=== PATIENT | male | born 1965 | race Caucasian/White ===

== ENCOUNTER → 2018-08-22 10:23 | Outpatient (CLI) | payer OTHER, SELFPAY ==
--- NOTE | 2018-08-22 10:30 | MRI_ITS ---
STUDY: MRI BRAIN WITH AND WITHOUT CONTRAST REASON FOR EXAM: Male, 53 years old. Epilepsy and bilateral tinnitus TECHNIQUE: Standardized multiplanar fat and water weighted pulse sequences were obtained. 10 ml of Gadavist contrast material was administered intravenously for the contrast portion of the examination. COMPARISON: 08/14/2015 FINDINGS: Normal size of the ventricles and extra-axial spaces for the patient's age. The previously described asymmetry involving the right versus the left uncus (with the left being slightly more prominent than the right) is unchanged. No parenchymal signal abnormalities are seen to suggest mesial temporal sclerosis or underlying mass lesion. Normal bilateral basal ganglia. Normal thalami. There is no extra-axial fluid accumulation. Normal flow voids within the major intracranial circulation suggesting patency by spin echo criteria. Normal venous enhancement. There is no enhancing intra-axial or extra-axial abnormality. Normal sella turcica, pituitary gland, infundibular stalk, optic chiasm and hypothalamus. Normal tectal plate and pineal gland. Normal midbrain, wu and medulla. Normal cerebellum. Normal basal cisterns. Normal bilateral temporal bones. Normal bilateral internal auditory canals. No demonstrated orbital abnormality, within the constraints of a routine brain study. Normal visualized paranasal sinuses. Normal calvarium and skull base. Normal visualized soft tissue structures. Degenerative cervical spine changes. MRI/Brain W/WO Contrast IMPRESSION: The previously described uncal asymmetry is unchanged. No new brain lesions are seen. Electronically Signed: Quintin Fowler MD at 14:12 EST Tel , Service support ,
== END ==
PROVIDERS: Family Provider Family Medicine; PCP Family Medicine; Referring Provider Family Medicine; Visit Provider Family Medicine
DX: G40.109 Localization-related (focal) (partial) symptomatic epilepsy and epileptic syndromes with simple partial seizures, not intractable, without status epilepticus (principal)
CPT/HCPCS: 70553; A9585

== ENCOUNTER → 2018-10-26 15:55 | Outpatient (CLI) | payer OTHER, SELFPAY ==
--- NOTE | 2018-10-26 16:00 | CT_ITS ---
STUDY: CT CERVICAL SPINE WITHOUT CONTRAST REASON FOR EXAM: Male, 53 years old. Neck pain, numbness RADIATION DOSAGE (If Supplied By Facility): CTDIvol = ( 44.02 ) mGy, DLP = ( 3001.90 ) mGycm TECHNIQUE: Thin slice helical CT acquisition of the cervical spine without contrast. Coronal and sagittal 2-D multiplanar reformatted images were saved to the PACS archive. Individualized dose optimization techniques were used for this CT. COMPARISON: Thoracic spine CT same date. FINDINGS: Cranial osseous structures and sinuses within the field of view exhibit no acute process. The apical lungs are clear. Apical thoracic cage intact. Supraclavicular soft tissues including the thyroid appear normal. Cervical soft tissues in limited evaluation exhibit no acute process. There are mild atherosclerotic calcifications of the carotid bulbs bilaterally. Prevertebral soft tissues normal. There is no spinal canal stenosis. Odontoid and lateral masses are intact and aligned without degeneration. 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 The facet joints are normally aligned and intact with mild low cervical facet arthropathy. Posterior limits acutely intact. Vertebral body height and alignment are normal. There is slight reversal of the expected cervical lordosis. Degenerative levels as follows: C3-C4 preserved disc height, mild uncovertebral joint hypertrophy, minimal foraminal narrowing, minimal central posterior disc protrusion not contributing to stenosis. C4-C5 mild disc narrowing, minimal right and mild left uncovertebral joint hypertrophy contributing to minimal right and mild left foraminal narrowing. C6-C7 minimal disc narrowing, no stenosis. Mild right facet hypertrophy. C7-T1 minimal disc narrowing, minimal uncovertebral joint hypertrophy, no stenosis. CT/Spine Cervical without Contras IMPRESSION: Minimal spondylosis. Minimal or mild foraminal narrowing is present at several levels, very limited risk of nerve root impingement. Electronically Signed: Arnulfo Alcazar MD at 19:16 EST Tel , Service support ,
--- NOTE | 2018-10-26 16:01 | CT_ITS ---
STUDY: CT THORACIC SPINE WITHOUT CONTRAST REASON FOR EXAM: Male, 53 years old. Neck pain and numbness. RADIATION DOSAGE (If Supplied By Facility): CTDIvol = ( 44.02 ) mGy, DLP = ( 3001.90 ) mGycm TECHNIQUE: The patient was scanned in a multi detector CT scanner. High resolution imaging was performed. Imagessagittal and coronal images were reconstructed. Individualized dose optimization techniques were used for this CT. COMPARISON: CT cervical spine same date. Lumbosacral spine radiograph 08/21/2015 FINDINGS: Paraspinous musculature appears normal. Evaluated portions of the retroperitoneum and mediastinum exhibit no acute process. No acute pulmonary process is evident within the [id number]. Posterior medial ribs are intact. Minimal degenerative features of several costochondral joints, most prominently on the right at T8-T10 . Mild thoracic scoliosis. Mild upper thoracic spondylosis. Very minimal disc degenerative features at several levels. The facet joints appear normally aligned and intact. Posterior elements acutely intact. There is no evidence of spinal canal stenosis. There is no evidence of foraminal stenosis. There are no apparent posterior disc bulges. CT/Spine Thoracic without Contras IMPRESSION: Minimal thoracic spondylosis. Mild kyphoscoliosis. No apparent stenosis. Electronically Signed: Arnulfo Alcazar MD at 18:19 EST Tel , Service support ,
== END ==
PROVIDERS: Family Provider Family Medicine; PCP Family Medicine; Referring Provider Nurse Practitioner Acute Care; Visit Provider Nurse Practitioner Acute Care
DX: R20.0 Anesthesia of skin (principal); R20.2 Paresthesia of skin
CPT/HCPCS: 72125; 72128

== ENCOUNTER → 2018-12-22 16:03 | Outpatient (CLI) | payer OTHER, SELFPAY ==
[2018-12-22 16:58] LABS: Hematocrit 39.2 % (40-54); Hemoglobin 13.5 g/dl (13.0-16.5); Mean Corp Hgb Conc 34.4 g/gl (32-36); Mean Corpuscular Hgb 32.1 pg (27.0-32.0); Mean Corpuscular Volume 93.3 fL (80-94); Mean Platelet Vol. 10.1 fl (6.2-12.0); Platelet Count 204 K/mm3 (150-450); RBC Distribution Width CV 11.7 % (11.6-14.6); RBC Distribution Width SD 38.9 fl (35.1-43.9); White Blood Count 4.6 K/mm3 (4.4-11.0)
[2018-12-22 17:12] LABS: Vitamin B12 1264 pg/mL (211-911)
[2018-12-22 17:53] LABS: Erythrocyte Sedimentation Rate 4 mm/hr (0-20)
[2018-12-22 17:54] LABS: ALB/GLOB Ratio 1.3 RATIO (0.9-2.4); AST(SGOT) 18 U/L (15-37); Alanine Aminotransfer ALT/SGPT 32 U/L (16-61); Alkaline Phosphatase 60 U/L (45-117); Anion Gap 6 (5-15); BUN 16 mg/dL (7-18); BUN/Creat Ratio 17.9 RATIO (10-20); CRP < 2.90 mg/L (0.0-3.0); Calcium,Total 8.5 mg/dL (8.5-10.1); Chloride 103 mmol/L (98-107); Creatinine, Serum 0.89 mg/dL (0.70-1.30); EST Glomerular Filtration Rate 95 mL/min (>60); Est Glom Filt Rate - Afr Amer 115 mL/min (>60); Globulin 3.1 g/dL (2.2-4.2); Glucose 86 mg/dL (74-106); Potassium 3.8 mmol/L (3.5-5.1); Protein, Total 7.1 g/dL (6.4-8.2); Sodium Level 137 mmol/L (136-145)
[2018-12-22 18:04] LABS: Scan Indicated on CBC? Y/N NO
[2018-12-26 08:48] LABS: Trileptal-Oxcarbazepine 6 ug/mL (10-35)
== END ==
PROVIDERS: Family Provider Family Medicine; PCP Family Medicine; Referring Provider Psychiatry & Neurology Neurology; Visit Provider Psychiatry & Neurology Neurology
DX: G40.909 Epilepsy, unspecified, not intractable, without status epilepticus (principal)
CPT/HCPCS: 36415; 80053; 82542; 82607; 85027; 85652; 86140

== ENCOUNTER → 2019-04-17 07:15 | Outpatient (CLI) | payer OTHER, SELFPAY ==
[2019-04-17 10:24] LABS: PSA,Total - Annual Screen 1.04 ng/mL (0.00-4.00)
== END ==
PROVIDERS: Family Provider Family Medicine; PCP Family Medicine; Referring Provider Family Medicine; Visit Provider Family Medicine
DX: Z12.5 Encounter for screening for malignant neoplasm of prostate (principal)
CPT/HCPCS: 36415; 84153; G0103

== ENCOUNTER → 2019-09-25 12:25 | Outpatient (CLI) | payer OTHER, SELFPAY ==
--- NOTE | 2019-09-25 12:29 | RAD_ITS ---
STUDY: X-RAY CHEST REASON FOR EXAM: Male, 54 years old. Bronchitis TECHNIQUE: Frontal and lateral views COMPARISON: None. FINDINGS: The lungs are clear and expanded. There is no demonstrated pleural abnormality. Normal size heart. Normal mediastinum and katya. Normal visualized pulmonary arteries. Normal visualized aortic arch and descending thoracic aorta. Normal visualized thoracic spine. Normal visualized ribs, clavicles, and shoulders. There is no demonstrated abnormality of the visualized soft tissue structures of the upper abdomen. RAD/Chest PA and Lateral IMPRESSION: Normal x-ray examination of the chest. Electronically Signed: Socrates Hayden DO at 21:48 EST Tel [phone], Service support ,
== END ==
PROVIDERS: Family Provider Family Medicine; PCP Family Medicine; Referring Provider Family Medicine; Visit Provider Family Medicine
DX: J42 Unspecified chronic bronchitis (principal)
CPT/HCPCS: 71046

== ENCOUNTER → 2019-11-20 08:17 | Outpatient (CLI) | payer OTHER, SELFPAY ==
[2019-11-20 10:35] LABS: Absolute Lymphocyte Count 0.99 X10^3/uL (0.83-4.51); Absolute Neutrophil Count 2.5 X10^3/uL (2.0-7.7); Basophil# 0.03 X10^3/uL; Basophil% 0.8 % (0-1); Eosinophil# 0.15 X10^3/uL; Eosinophils% 3.8 % (0-5); Hematocrit 39.6 % (40-54); Hemoglobin 13.6 g/dL (13.0-16.5); Lymphocyte # 0.99 X10^3/ul (4.0); Lymphocyte % 24.8 % (19-41); Mean Corp Hgb Conc 34.3 g/dL (32-36); Mean Corpuscular Hgb 31.9 pg (27.0-32.0); Mean Platelet Vol. 10.6 fl (6.2-12.0); Monocyte# 0.35 X10^3/uL; Monocyte% 8.8 % (0-10); NRBC Flagged by Analyzer 0 % (0-5); Neutrophil # 2.47 X10^3/uL (2.7-7.7); Neutrophil % 61.5 % (47-70); Platelet Count 178 K/mm3 (150-450); RBC Distribution Width CV 11.7 % (11.6-14.6); RBC Distribution Width SD 39.8 fl (35.1-43.9); Red Blood Count 4.26 M/mm3 (4.6-6.2)
[2019-11-20 10:58] LABS: Microalbumin,Random Urine 14.6 mg/L (NO RANGE EST.); Microalbumin:Creatinine Ratio 5.6 mg/g CRE (<30 mg/g CRE)
[2019-11-20 11:32] LABS: ALB/GLOB Ratio 1.2 RATIO (0.9-2.4); AST(SGOT) 16 U/L (15-37); Alanine Aminotransfer ALT/SGPT 32 U/L (16-61); Albumin, Serum 3.6 g/dL (3.2-5.0); Alkaline Phosphatase 58 U/L (45-117); Anion Gap 5 (5-15); BUN 20 mg/dL (7-18); BUN/Creat Ratio 16.7 RATIO (10-20); CRP < 2.90 mg/L (0.0-3.0); Calcium,Total 8.9 mg/dL (8.5-10.1); Chloride 107 mmol/L (98-107); EST Glomerular Filtration Rate 67 mL/min (>60); Est Glom Filt Rate - Afr Amer 81 mL/min (>60); Globulin 3.1 g/dL (2.2-4.2); Glucose 103 mg/dL (74-106); Potassium 3.9 mmol/L (3.5-5.1); Protein, Total 6.7 g/dL (6.4-8.2); Sodium Level 138 mmol/L (136-145); Thyroid Stim Hormone (TSH) 1.76 uIU/mL (0.358-3.74)
[2019-11-22 12:08] LABS: PROEL- A/G Ratio 1.4 (0.7-1.7); PROEL- Albumin 3.7 g/dL (2.9-4.4); PROEL- Alpha-1 Globulin 0.2 g/dL (0.0-0.4); PROEL- Alpha-2 Globulin 0.8 g/dL (0.4-1.0); PROEL- Gamma Globulin 0.6 g/dL (0.4-1.8); PROEL- Globulin, Total 2.6 g/dL (2.2-3.9); PROEL- TOTAL PROTEIN 6.3 g/dL (6.0-8.5); PROELU- Alpha-1-Globulin,Ur 1.1 % (.); PROELU- Alpha-2-Globulin,Ur 18.7 % (.); PROELU- Beta Globulin, Ur 28.3 % (.); Total Protein, Ur 9.1 mg/dL (Not Estab.)
[2019-11-22 13:48] LABS: ANTINUCLEAR ANTIBODIES DIRECT Negative (Negative)
== END ==
PROVIDERS: PCP Family Medicine; Referring Provider Family Medicine; Visit Provider Family Medicine
DX: G62.9 Polyneuropathy, unspecified (principal)
CPT/HCPCS: 36415; 80053; 82043; 82570; 84165; 84166; 84443; 85025; 86038; 86140

== ENCOUNTER → 2019-12-06 15:45 | Outpatient (CLI) | payer OTHER, SELFPAY ==
[2019-12-09 10:15] LABS: Lamotrigine (Lamictal) Level 4.1 ug/mL (2.0-20.0)
== END ==
PROVIDERS: PCP Family Medicine; Referring Provider Psychiatry & Neurology Neurology; Visit Provider Psychiatry & Neurology Neurology
DX: R56.9 Unspecified convulsions (principal)
CPT/HCPCS: 36415; 82542

== ENCOUNTER → 2019-12-12 16:06 | Outpatient (CLI) | payer OTHER, SELFPAY ==
--- NOTE | 2019-12-12 16:15 | RAD_ITS ---
STUDY: X-RAY - LUMBOSACRAL SPINE REASON FOR EXAM: Male, 54 years old. low back pain, patient also has pain that runs down both legs TECHNIQUE: 7 view(s) of the lumbosacral spine were obtained. COMPARISON: 11 for 15 FINDINGS: Normal lumbar lordosis. There is no substantial scoliosis. There is normal alignment of the vertebrae. No subluxation on the flexion or extension views to suggest instability. There is multilevel endplate spondylosis of the lumbar vertebrae. There is multi-level degenerative disc disease with multi-level disc space narrowing. Normal bilateral sacral ala, sacroiliac joints, and visualized sacrum. Normal visualized soft tissue structures. RAD/L/S Spine Comp/w Bending Views IMPRESSION: Mild degenerative disc disease lower lumbar spine but no instability. Electronically Signed: Arnulfo Hurtado MD at 9:08 EST Tel , Service support ,
== END ==
PROVIDERS: PCP Family Medicine; Referring Provider Psychiatry & Neurology Neurology; Visit Provider Psychiatry & Neurology Neurology
DX: M54.16 Radiculopathy, lumbar region (principal)
CPT/HCPCS: 72114

== ENCOUNTER → 2020-06-03 14:28 | Outpatient (CLI) | payer OTHER, SELFPAY ==
--- NOTE | 2020-06-03 14:31 | RAD_ITS ---
STUDY: X-RAY - LEFT SHOULDER REASON FOR EXAM: Male, 55 years old. left side neck pain and into the left shoulder for several months TECHNIQUE: 2 view(s) of the shoulder. COMPARISON: None. FINDINGS: There is moderate degenerative arthrosis of the glenohumeral articulation. There is a chronic type III separation of the acromioclavicular joint. Normal acromion. Normal humeral head and visualized proximal humerus. The soft tissue structures are unremarkable. Normal visualized pulmonary apex. 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
--- NOTE | 2020-06-03 14:31 | RAD_ITS ---
STUDY: X-RAY - CERVICAL SPINE REASON FOR EXAM: Male, 55 years old. Neck pain along left side and into left shoulder TECHNIQUE: 4 view(s) of the cervical spine were obtained. COMPARISON: None FINDINGS: Normal anterior atlantoaxial articulation. Normal odontoid process. Normal cervical lordosis. Normal vertebral bodies and endplates. Normal disc space heights. Normal visualized intervertebral neuroforamina. The soft tissue structures are unremarkable. RAD/Cerv Spine 2 or 3 Views IMPRESSION: Normal x-ray examination of the visualized cervical spine. Electronically Signed: Carlos Akers MD at 15:52 EDT , Service support ,
== END ==
PROVIDERS: PCP Family Medicine; Referring Provider Family Medicine; Visit Provider Family Medicine
DX: M54.2 Cervicalgia (principal); G54.0 Brachial plexus disorders
CPT/HCPCS: 72040; 73030

== ENCOUNTER → 2020-11-21 13:30 | Outpatient (CLI) | payer OTHER, SELFPAY | PROVIDERS: PCP Family Medicine; Referring Provider Family Medicine; Visit Provider Family Medicine | DX: Z20.828 Contact with and (suspected) exposure to other viral communicable diseases (principal) | CPT/HCPCS: 87635; U0005; U0003 ==

== ENCOUNTER → 2020-12-09 10:46 | Outpatient (CLI) | payer OTHER, SELFPAY ==
[2020-12-09 12:04] LABS: PSA,Total - Annual Screen 1.52 ng/mL (0.00-4.00)
== END ==
PROVIDERS: PCP Family Medicine; Referring Provider Urology; Visit Provider Urology
DX: Z12.5 Encounter for screening for malignant neoplasm of prostate (principal)
CPT/HCPCS: 36415; 84153; G0103

== ENCOUNTER → 2021-04-03 07:52 | Outpatient (CLI) | payer OTHER, SELFPAY ==
--- NOTE | 2021-04-03 08:01 | MRI_ITS ---
STUDY: MRI CERVICAL SPINE WITHOUT CONTRAST REASON FOR EXAM: Male, 56 years old. Paresthesia of skin. TECHNIQUE: Standardized fat and water weighted pulse sequences were obtained in the sagittal and axial planes. COMPARISON: CT cervical spine without contrast 10/26/2018. FINDINGS: Normal foramen magnum and brainstem-cervical cord junction. Normal craniovertebral junction. Normal anterior atlantoaxial articulation. Normal odontoid process. Mild upper cervical spine kyphosis. Normal vertebral bodies and posterior osseous elements. C2-3: Normal endplates. Normal disc height, signal and morphology. Normal central canal and intervertebral neural foramina. C3-4: Normal endplates. Normal disc height, signal and morphology. Normal central canal and intervertebral neural foramina. C4-5: Normal endplates. Normal disc height and morphology. Normal central canal and right intervertebral neural foramen. Moderate stenosis of the left intervertebral neural foramen due to osteophyte arising from the left uncovertebral joint. C5-6: Normal endplates. Normal disc height and morphology. Normal central canal and right intervertebral neural foramen. Mild stenosis of the left intervertebral neural foramen. C6-7: Normal endplates. Normal disc height, signal and morphology. Normal central canal and intervertebral neural foramina. C7-T1: Normal endplates. Normal disc height, signal and morphology. Normal central canal and intervertebral neural foramina. T1-T2, T2-T3: (Sagittal only). Multiple endplates. Normal disc height, signal and morphology. Normal central canal and intervertebral neural foramina. T3-T4: (Sagittal only). Normal endplates. Mild disc space height narrowing. Normal disc morphology. Normal central canal and intervertebral neural foramina. Normal cervical cord. Normal included upper thoracic spinal cord. Normal included portions of the brainstem and cerebellum. Normal visualized soft tissue structures. MRI/Spine Cervical (Routine) IMPRESSION: 1. Moderate stenosis of the left C4-C5 intervertebral neural foramina due to osteophytic spur arising from the left uncovertebral joint. 2. Mild stenosis of the left C5-C6 intervertebral neural foramen. 3. No suspicious cervical extruded disc fragment. 4. Normal cervical spinal cord, the included portions of the upper thoracic spinal cord and the included portions of the brainstem and cerebellum. Electronically Signed: Carl Mcmillan MD at 11:18 EDT , Service support ,
== END ==
PROVIDERS: PCP Family Medicine; Referring Provider Psychiatry & Neurology Neurology; Visit Provider Psychiatry & Neurology Neurology
DX: R20.2 Paresthesia of skin (principal)
CPT/HCPCS: 72141

== ENCOUNTER 2021-04-07 11:43 | Observation (INO) | payer OTHER, SELFPAY ==
[2021-04-07] VITALS (8 sets, daily range): BP systolic 126–149; BP diastolic 69–91; PULSE 64–106; RESP 15–18; TEMP 35.9–36.5; O2SAT 95–99; BMI 30.9; BMI 31.0
--- NOTE | 2021-04-07 12:47 | EKG12_ITS ---
Test Reason : CP Blood Pressure : / mmHG Vent. Rate : 095 BPM Atrial Rate : 095 BPM P-R Int : 162 ms QRS Dur : 090 ms QT Int : 352 ms P-R-T Axes : 055 018 050 degrees QTc Int : 442 ms Normal sinus rhythm Normal ECG Confirmed by CAILIN CONKLIN, STAS ([id number]), editor in chief newspaper [employer]UNIOR ([id number]) on 04/09/2021 9:19:49 AM Referred By: CITLALY Confirmed By:STAS SIMEON MD
--- NOTE | 2021-04-07 13:11 | RAD_ITS ---
STUDY: X-RAY CHEST REASON FOR EXAM: Male, 56 years old. chest pain TECHNIQUE: 1 view COMPARISON: 09/25/2019. FINDINGS: The lungs are clear and expanded. There is no demonstrated pleural abnormality. Normal size heart. Normal mediastinum and katya. Normal visualized pulmonary arteries. Normal visualized aortic arch and descending thoracic aorta. Normal visualized thoracic spine. Normal visualized ribs, clavicles, and shoulders. There is no demonstrated abnormality of the visualized soft tissue structures of the upper abdomen. RAD/Chest 1 View (Portable) IMPRESSION: Normal x-ray examination of the chest. Unchanged since September 2019 Electronically Signed: Jian Johnson, at 13:22 EDT Tel , Service support ,
--- NOTE | 2021-04-07 13:19 | EDS_ITS ---
HPI History of Present Illness Chief Complaint: Chest Pain Detail of Chief Complaint: Sternal chest pressure, diaphoresis, dyspnea Informant: patient and spouse/S.O. Onset/Context/Timing Onset: Month(s) Activity at onset: sudden, activity on onset, light activity (Past several days minimal activity) and exertion (Exertion initially) Timing: Intermittent Quality: Positive for Heaviness and Pressure Location: Substernal Current Severity: Gone Maximum Severity: Severe Worsened By: Exertion Relieved By: Rest Associated Symptoms: Positive for Nausea, Diaphoresis, Dyspnea, Lightheadedness and Palpitations; Negative for Cough, Fever and Acid Reflux Narrative Narrative: Patient is a 56-year-old male who is not forthcoming with information. Patient is experiencing chest heaviness/pressure that is midsternal starting over 6 months ago. He did not inform his doctor. He does smoke. He smokes heavier than he admits to according the . He also has multiple risk factors for coronary disease. Yesterday he began came lightheaded with the chest heaviness associated with diaphoresis. He reports less activity as needed to precipitate the chest heaviness. Prior Similar Symptoms: No CVD Risk Factors: Positive for Hypertension, Diabetes, Hypercholesterolemia, Family History 1' </=55 and Smoking PE Risk Factors: Negative for Recent Travel/Surgery, Recent Immobilization, Prior DVT or PE, Cancer and OCP + Smoking + >/=35 TAD Risk Factors: Positive for Hypertension; Negative for Marfan's Syndrome and Family History PFSH PFSH Home Medications ezetimibe 10 mg PO DAILY 02/22/17 [History Last Taken Unknown] lamotrigine [Lamictal] 100 mg PO BID 02/22/17 [History Last Taken Unknown] simvastatin 40 mg PO QHS 02/22/17 [History Last Taken Unknown] tamsulosin [Flomax] 0.4 mg PO QHS 02/22/17 [History Last Taken Unknown] doxylamine succinate [Unisom (doxylamine)] 25 mg PO QHS PRN 04/07/21 [History Last Taken Unknown] duloxetine 60 mg PO DAILY 04/07/21 [History Last Taken Unknown] losartan-hydrochlorothiazide 1 tab PO DAILY 04/07/21 [History Last Taken Unknown] Allergy/AdvReac Type Severity Reaction Status Date / Time No Known Allergies Allergy Verified 04/07/21 12:11 Social History (Updated 04/07/21 @ 13:[address] Partha Curtis MD) household members: significant other history of recent travel: No sexually active: Yes Smoking Status: Current every day smoker tobacco type: cigarettes alcohol intake: current alcohol intake frequency: a few times a month ROS ROS ED Constitutional Constitutional ED: Reports sweats; Denies chills, fever(s), subjective or weight loss Eyes Eyes: Reports none ENT ENT ED: Denies ear pain, rhinorrhea or sore throat Cardiovascular Cardiovascular: Reports as per HPI; Denies orthopnea or paroxysmal nocturnal dyspnea Respiratory/Chest Respiratory/Chest: Reports dyspnea and dyspnea on exertion; Denies cough, orthopnea or paroxysmal nocturnal dyspnea Gastrointestinal Gastrointestinal: Reports nausea; Denies abdominal pain, constipation, diarrhea or vomiting Genitourinary Genitourinary ED: Denies dysuria, hematuria or urinary frequency Musculoskeletal Musculoskeletal: Denies arthralgias, myalgias or neck pain Integumentary Denies Abrasions or rash Neurologic Neurologic: Denies headache(s) or weakness Endocrine Endocrinology: Denies polydipsia, polyphagia or polyuria Hematologic/Lymphatic Hematologic/Lymphatic: Denies easy bleeding or easy bruising EXAM Physical Exam Const Vital Signs: 04/07/21 11:44 04/07/21 12:47 04/07/21 13:37 Temperature 96.6 F L Temperature Source Temporal Pulse Rate 106 H 74 Respiratory Rate 16 15 Blood Pressure 149/76 H 140/69 H Blood Pressure Mean 100 92 Pulse Ox 97 97 99 Oxygen Delivery Method Room Air Room Air Room Air Positive well nourished, well developed and obese General Appearance ED: well developed Nutritional Appearance: obese HEENT Reports moist mucous membranes HEENT Narrative: Uvula midline. No erythema or exudate. No angioedema. Ears are normal. Face is symmetric. normocephalic and atraumatic Eyes PERRL and EOMs intact bilaterally General Eye ED: Negative for pale conjunctiva or scleral icterus Neck no lymphadenopathy, supple and no JVD Chest Wall inspection of chest normal Resp normal respiratory effort Effort and Inspection: respiratory distress Cardio regular rate, regular rhythm, S1 normal heart sound, S2 normal heart sound and no murmurs GI normal to inspection, nondistended, normoactive bowel sounds and soft to palpation Back/Spine no CVA tenderness and no thoracic nor lumbar tenderness Extremity normal to inspection General Extremety ED: Negative for edema, pulses abnormal or tenderness General Extremity: Negative for edema or pulses abnormal Neuro oriented x3 and CN's II-XII intact bilaterally Sensorium / Orientation: awake and alert Psych mental status grossly normal Skin no rashes or lesions noted and no wounds Heart Score History: Highly Suspicious ECG: Nonspecific Repolarization Age: >45 - <65 years Risk Factors: >/= 3 Risk Factors or History of CAD Troponin: </= Normal Limit Score: 6 MDM MDM MDM Narrative Medical decision making narrative: She presents with classic exertional angina per Gold criteria. Patient will require cardiac work-up. Case will be discussed with pull over machine operator on-call since it is my opinion he needs a cardiac catheterization. Lab Data Labs: Laboratory Results - last 24 hr 04/07/21 04/07/21 11:59 11:59 WBC 7.3 RBC 4.35 L Hgb 14.2 Hct 40.2 MCV 92.4 MCH 32.6 H MCHC 35.3 RDW Std Deviation 39.8 RDW Coeff of [place] 11.9 Plt Count 250 MPV 10.1 Immature Gran % (Auto) 0.300 Neut % (Auto) 76.5 H Lymph % (Auto) 17.1 L [place] % (Auto) 5.3 Eos % (Auto) 0.4 Baso % (Auto) 0.4 Absolute Neuts (auto) 5.6 Absolute Lymphs (auto) 1.25 Nucleated RBC % 0 Sodium 137 Potassium 3.3 L Chloride 100 Carbon Dioxide 25.0 Anion Gap 12 BUN 9 Creatinine 1.26 Estim Creat Clear Calc 74.86 Est GFR (MDRD) Af Amer 76 Est GFR (MDRD) Non-Af 63 BUN/Creatinine Ratio 7.1 L Glucose 138 H Calcium 9.0 Troponin I < 0.015 Radiography Chest X-Ray - ED: 1 View, Heart, Lungs, Mediastinum, Bony Structures and No Acute Disease Diagnostic Testing: Radiology Impression Chest X-Ray 04/07/21 13:11 IMPRESSION: Normal x-ray examination of the chest. Unchanged since September 2019 Electronically Signed: Jian Johnson, at 13:22 EDT Tel , Service support , EKG Initial EKG: Attestation: I personally reviewed and interpreted this EKG as follows: Interpretation: Sinus Rhythm (Sinus rhythm rate of 95. [place] interval 160 ms. QS duration 90 ms. QT duration 3 and 52 ms. [place] is normal. There is nonspecific changes noted in the lateral leads.) Critical Care Time Critical care time (excluding procedures): 30-74 minutes (27 minutes), Including time spent: (History, physical exam, documentation, review of prior records,), Discussing w/Patient &/or Family/Repair Weaver, Discussing w/Consultants and Arranging Admission or Transfer Discharge Plan Triage Chief Complaint: Chest Pain ED Provider: Partha Curtis Dx/Rx/DC Orders Clinical Impression: Exertional angina, Hypertension Prescriptions: No Action simvastatin 40 MG tablet 40 mg PO QHS RF: 0 tamsulosin [Flomax] 0.4 MG capsule 0.4 mg PO QHS RF: 0 lamotrigine [Lamictal] 100 MG tablet 100 mg PO BID RF: 0 ezetimibe 10 MG tablet 10 mg PO DAILY RF: 0 Unisom (doxylamine) 25 mg Tablet 25 mg PO QHS PRN (Reason: Sleep) RF: 0 losartan-hydrochlorothiazide 50-12.5 mg tablet 1 tab PO DAILY RF: 0 duloxetine 60 mg capsule,delayed release(DR/EC) 60 mg PO DAILY RF: 0 Primary Care Provider: Reyes Muñoz Referrals: Reyes Muñoz MD [Primary Care Provider] -
[2021-04-07 13:34] LABS: Absolute Lymphocyte Count 1.25 X10^3/uL (0.83-4.51); Absolute Neutrophil Count 5.6 X10^3/uL (2.0-7.7); Basophil# 0.03 X10^3/uL; Basophil% 0.4 % (0-1); Eosinophil# 0.03 X10^3/uL; Eosinophils% 0.4 % (0-5); Hematocrit 40.2 % (40-54); Hemoglobin 14.2 g/dL (13.0-16.5); Lymphocyte # 1.25 X10^3/ul (0.83-4.51); Lymphocyte % 17.1 % (19-41); Mean Corp Hgb Conc 35.3 g/dL (32-36); Mean Corpuscular Hgb 32.6 pg (27.0-32.0); Mean Corpuscular Volume 92.4 fL (80-94); Mean Platelet Vol. 10.1 fl (6.2-12.0); Monocyte# 0.39 X10^3/uL; Monocyte% 5.3 % (0-10); NRBC Flagged by Analyzer 0 % (0-5); Neutrophil # 5.59 X10^3/uL (2.7-7.7); Neutrophil % 76.5 % (47-70); Platelet Count 250 K/mm3 (150-450); RBC Distribution Width CV 11.9 % (11.6-14.6); RBC Distribution Width SD 39.8 fl (35.1-43.9); Red Blood Count 4.35 M/mm3 (4.6-6.2); White Blood Count 7.3 K/mm3 (4.4-11.0)
[2021-04-07] MEDS: Aspirin 81 MG TAB.CHEW 324 MG PO (13:42)
[2021-04-07 13:50] LABS: Anion Gap 12 (5-15); BUN 9 mg/dL (7-18); BUN/Creat Ratio 7.1 RATIO (10-20); Chloride 100 mmol/L (98-107); Creatinine, Serum 1.26 mg/dL (0.70-1.30); EST Glomerular Filtration Rate 63 mL/min (>60); Est Glom Filt Rate - Afr Amer 76 mL/min (>60); Estimated Creatinine Clearance 74.86 ml/min; Glucose 138 mg/dL (74-106); Potassium 3.3 mmol/L (3.5-5.1); Sodium Level 137 mmol/L (136-145)
--- NOTE | 2021-04-07 14:21 | HP.PCM.HOS_ITS ---
[facility] - General General Date of Admission: 04/07/21 Date of Service: 04/07/21 Chief Complaint: Dizziness, chest pain. HPI Narrative REGAN DIAZ, is a 56 M with past medical history as mentioned above presented to the emergency room because of dizziness and chest pain. The patient is poor informant and he could not give me a full details about his complaints. When I asked him if he had any chest pain, he said no. His was at the bedside and she said he did have intermittent chest pains for the last couple of months. Patient reported intermittent episodes of chest pain over the last couple of months, described as chest heaviness, occurs both with exertion and at rest, associated with shortness of breath and dizziness as well as profuse sweating and without aggravating or relieving factors. He mentioned that over the last 2 weeks, he had more than 7 episodes of those symptoms. Currently, he has no chest pain. He mentioned that his dad had bypass surgery when he was 51 years old. In the emergency department, his vitals were stable. His routine blood work was remarkable for potassium of 3.3, otherwise normal. Chest x-ray showed no acute findings. EKG revealed normal sinus rhythm, normal QRS, no acute changes. Troponin was negative. Patient is being admitted for chest pain/probable angina for evaluation. REPLACED BY [facility] Home Medications ezetimibe 10 mg PO DAILY 02/22/17 [History Last Taken Unknown] lamotrigine [Lamictal] 100 mg PO BID 02/22/17 [History Last Taken Unknown] simvastatin 40 mg PO QHS 02/22/17 [History Last Taken Unknown] tamsulosin [Flomax] 0.4 mg PO QHS 02/22/17 [History Last Taken Unknown] doxylamine succinate [Unisom (doxylamine)] 25 mg PO QHS PRN 04/07/21 [History Last Taken Unknown] duloxetine 60 mg PO DAILY 04/07/21 [History Last Taken Unknown] losartan-hydrochlorothiazide 1 tab PO DAILY 04/07/21 [History Last Taken Unkno wn] Allergy/AdvReac Type Severity Reaction Status Date / Time No Known Allergies Allergy Verified 04/07/21 12:11 Family History (Updated 04/07/21 @ 14:[address] Blade Khalil MD) Father CAD (coronary artery disease) Other Heart disease Surgical History (Updated 04/07/21 @ 14:[address] Blade Khalil MD) History of herniorrhaphy Social History (Updated 04/07/21 @ 13:[address] Partha Curtis MD) household members: significant other history of recent travel: No sexually active: Yes Smoking Status: Current every day smoker tobacco type: cigarettes alcohol intake: current alcohol intake frequency: a few times a month ROS Constitutional Constitutional: Denies anorexia, chills, fatigue, fever(s) or malaise Eyes Eyes: Denies blurry vision, change in eye color, change in vision, double vision or eye pain ENT HEENT: Denies ear discharge, ear pain, epistaxis, headache(s), nasal congestion, post nasal drip or sore throat Cardiovascular Cardiovascular: Reports chest pain, dyspnea on exertion and lightheadedness; Denies edema, orthopnea, palpitations, paroxysmal nocturnal dyspnea or syncope Respiratory/Chest Respiratory/Chest: Reports shortness of breath with exertion; Denies cough, hemoptysis, productive cough or wheezing Gastrointestinal Gastrointestinal: Denies abdominal pain, constipation, diarrhea, hematemesis, hematochezia, melena, nausea or vomiting Genitourinary Genitourinary: Denies burning urination, dysuria, hematuria, urinary hesitancy or urinary urgency Musculoskeletal Musculoskeletal: Denies arthralgias, back pain, joint pain, joint swelling, myalgias or neck pain Neurologic Neurologic: Denies confusion, dizziness, focal weakness, headache(s), numbness, paresthesias, seizures, tingling, tremor(s) or vertigo Psychiatric Psychiatric: Reports depression; Denies anxiety, hallucinations, homicidal ideation or suicidal ideation Endocrine Endocrinology: Denies change in body appearance, cold intolerance, heat intolerance, polydipsia or polyuria Hematologic/Lymphatic Hematologic/Lymphatic: Denies easy bleeding, easy bruising or lymphadenopathy Allergic/Immunologic Allergic/Immunologic: Denies itchy eyes, rhinitis, throat swelling, tongue swelling, hives, urticaria or wheezing Vital Signs Vital Signs Vital Signs: 04/07/21 11:44 04/07/21 12:47 04/07/21 13:37 Temperature 96.6 F L Temperature Source Temporal Pulse Rate 106 H 74 Respiratory Rate 16 15 Blood Pressure 149/76 H 140/69 H Blood Pressure Mean 100 92 Pulse Ox 97 97 99 Oxygen Delivery Method Room Air Room Air Room Air 04/07/21 14:14 Temperature 97.1 F L Temperature Source Temporal Pulse Rate 78 Respiratory Rate 18 Blood Pressure 126/88 H Blood Pressure Mean 100 Pulse Ox 95 Oxygen Delivery Method Room Air Weight Weight: 235 lb Body Mass Index (BMI) 30.9 Physical Exam Const alert, oriented x3, no apparent distress and no limitations General Appearance: cooperative HEENT normocephalic, head/scalp atraumatic, external ears normal, external nose normal and moist oral mucous membranes Eyes PERRL, EOMs intact bilaterally, conjunctivae normal and no scleral icterus Neck no lymphadenopathy, supple, no meningeal signs, no JVD and no carotid bruits Lymph Lymphatic: no lymphadenopathy noted Resp normal respiratory effort, normal air movement and clear to auscultation bilaterally Auscultation: Negative for crackles, rales, rhonchi or wheezes Cardio regular rate, regular rhythm, S1 normal heart sound, S2 normal heart sound, no murmurs and no JVD GI normal to inspection, nondistended, normoactive bowel sounds, soft to palpation, non-tender and non-distended; Negative for hepatosplenomegaly Extremity normal to inspection, full ROM and no clubbing, cyanosis or edema Skin no rashes or lesions noted, no wounds and no petechiae Neuro oriented x3, CN's II-XII intact bilaterally and moves all extremities Sensorium / Orientation: alert Motor Exam: strength 5/5 throughout Psych mental status grossly normal and affect normal Appearance: appropriate Results Lab / Micro Data Result Diagrams: 04/07/21 11:59 04/07/21 11:59 Labs: Laboratory Results - last 24 hr 04/07/21 04/07/21 11:59 11:59 WBC 7.3 RBC 4.35 L Hgb 14.2 Hct 40.2 MCV 92.4 MCH 32.6 H MCHC 35.3 RDW Std Deviation 39.8 RDW Coeff of [place] 11.9 Plt Count 250 MPV 10.1 Immature Gran % (Auto) 0.300 Neut % (Auto) 76.5 H Lymph % (Auto) 17.1 L [place] % (Auto) 5.3 Eos % (Auto) 0.4 Baso % (Auto) 0.4 Absolute Neuts (auto) 5.6 Absolute Lymphs (auto) 1.25 Nucleated RBC % 0 Sodium 137 Potassium 3.3 L Chloride 100 Carbon Dioxide 25.0 Anion Gap 12 BUN 9 Creatinine 1.26 Estim Creat Clear Calc 74.86 Est GFR (MDRD) Af Amer 76 Est GFR (MDRD) Non-Af 63 BUN/Creatinine Ratio 7.1 L Glucose 138 H Calcium 9.0 Troponin I < 0.015 Radiology Impression Chest X-Ray 04/07/21 13:11 IMPRESSION: Normal x-ray examination of the chest. Unchanged since September 2019 Electronically Signed: Jian Johnson, at 13:22 EDT Tel , Service support , Assessment & Plan Assessment/Plan (1) Depression: (2) Hyperlipidemia: (3) Seizure disorder: (4) Hypertension: (5) Chest pain: PLAN: This is a 56 years old male patient presented to the emergency room because of intermittent chest pain, dizziness over the last couple of months and he is being admitted for evaluation. #1 chest pain/probable angina: Initial EKG and troponin were negative. Chest x- ray showed no acute findings. Vital signs are stable. Risk factors are hypertension, smoking, hyperlipidemia and family history of premature CAD. Patient's father had bypass surgery when he was 50 years old. Plan: Admit to PCU observation, cardiac monitoring, serial cardiac enzymes, start baby aspirin, sublingual nitroglycerin, continue statins, as needed Tylenol, Zofran, nuclear stress test tomorrow morning if cardiac enzymes are negative. #2 hypokalemia: Likely due to HCTZ. Replace potassium with p.o. K. Dur 40 mEq p.o. x1. #3 hypertension: Blood pressure stable, continue losartan/HCTZ. #4 seizure disorder: Stable, continue lamotrigine. #5 hyperlipidemia: Continue statin and ezetimibe, check lipid profile. #6 depression: Stable, continue paroxetine. #7 DVT prophylaxis: Low risk patient, no prophylaxis indicated. This note was generated with Manifestation software. It may contain incorrect words, spelling, and punctuation that were not noted in checking the note before signing. Charges/Coding Visit Charges OBSV E&M: 05533 Initial observation care L3
--- NOTE | 2021-04-07 15:14 | CON.PCM.CA_ITS ---
Assessment & Plan Assessment/Plan (1) Chest pain: PLAN: He does have a history of chest discomfort which appears to be fairly recent in onset. Despite the fact that his cardiac enzymes are normal it is of concern based on the character, the frequency, and the extent. After discussion with the patient I would prefer to further investigate the above by performing a left heart catheterization. The risk benefits and alternatives of been explained to him he understands and agrees to proceed. Depending on the findings further recommendations will be made. (2) Hypertension: PLAN: He does have a history of hypertension which appears to be fairly well controlled on the current medical therapy. No major changes will be made with respect to the above. Thank you for allowing me to participate in the care of your patient. Please don't hesitate to call if any issues arise. HPI Consult Data Date of Consult: 04/07/21 HPI Narrative HPI Narrative: REGAN DIAZ, is a 56 M who presents to the emergency room because of dizziness and chest discomfort. He says that he has been having this chest discomfort for the last couple of months described as a heaviness which occurs both with exertion and with rest. It is associated with some shortness of breath as well as radiation towards his left arm. He has also had occasional dizziness and profuse sweating the last of which happened yesterday. He has had no diamante syncopal episodes. He has been compliant with his medications. Of note is the fact that his father did have coronary bypass surgery when he was 50 years old. He presented to the emergency room was evaluated and was admitted based on his history. His EKG showed no changes and chest x-ray demonstrated no acute findings. His physical exam at this time is unremarkable. [facility] Home Medications ezetimibe 10 mg PO DAILY 02/22/17 [History Last Taken 04/06/21] lamotrigine [Lamictal] 100 mg PO BID 02/22/17 [History Last Taken 04/07/21] simvastatin 40 mg PO QHS 02/22/17 [History Last Taken 04/06/21] tamsulosin [Flomax] 0.4 mg PO QHS 02/22/17 [History Last Taken 04/06/21] aspirin [Aspir-81] 81 mg PO QODAY 04/07/21 [History Last Taken 04/06/21] docusate sodium 100 mg PO DAILY 04/07/21 [History Last Taken 04/07/21] doxylamine succinate [Unisom (doxylamine)] 25 mg PO QHS PRN 04/07/21 [History Last Taken 04/03/21] duloxetine 60 mg PO DAILY 04/07/21 [History Last Taken 04/07/21] losartan-hydrochlorothiazide 1 tab PO DAILY 04/07/21 [History Last Taken 04/07/21] Allergy/AdvReac Type Severity Reaction Status Date / Time No Known Allergies Allergy Verified 04/07/21 12:11 Family History Father CAD (coronary artery disease) Other Heart disease Surgical History History of herniorrhaphy Social History household members: significant other history of recent travel: No sexually active: Yes Smoking Status: Current every day smoker tobacco type: cigarettes alcohol intake: current alcohol intake frequency: a few times a month ROS Constitutional Constitutional: Denies fever(s) or weight loss Eyes Eyes: Reports as per HPI ENT HEENT: Reports as per HPI Cardiovascular Cardiovascular: Reports other Respiratory/Chest Respiratory/Chest: Reports other Gastrointestinal Gastrointestinal: Denies change in bowel habits, nausea, vomiting or weight changes Genitourinary Genitourinary: Denies difficulty urinating Musculoskeletal Musculoskeletal: Denies joint stiffness or muscle weakness Integumentary Integumentary: Denies lesions Neurologic Neurologic: Denies dizziness or syncope Psychiatric Psychiatric: Denies anxiety Endocrine Endocrinology: Denies excessive sweating or fatigue Hematologic/Lymphatic Hematologic/Lymphatic: Denies anemia Allergic/Immunologic Allergic/Immunologic: Denies seasonal rhinorrhea Physical Exam Const oriented x3 and healthy appearing Orientation / Consciousness: awake HEENT normocephalic Eyes PERRL and conjunctivae normal Neck supple, no JVD and no carotid bruits Chest inspection of chest normal Resp normal respiratory effort and clear to auscultation bilaterally Cardio Palpation: normal PMI Rate: regular rate Rhythm: regular rhythm Heart Sounds: S1 normal and S2 normal Peripheral Pulses: pulses 2+ throughout GI normal to inspection, nondistended, normoactive bowel sounds Extremity normal to inspection and no clubbing, cyanosis or edema Psych mental status grossly normal Objective Data Vital Signs: Vital Signs Temp Pulse Resp BP Pulse Ox 97.1 F L 80 18 126/88 H 98 04/07/21 14:14 04/07/21 14:14 04/07/21 14:14 04/07/21 14:14 04/07/21 14:14 Oxygen Delivery Method Room Air Weight: 235 lb Body Mass Index (BMI) 30.9 Lab / Micro Data Result Diagrams: 04/07/21 11:59 04/07/21 11:59 Labs: Laboratory Results - last 24 hr 04/07/21 04/07/21 11:59 11:59 WBC 7.3 RBC 4.35 L Hgb 14.2 Hct 40.2 MCV 92.4 MCH 32.6 H MCHC 35.3 RDW Std Deviation 39.8 RDW Coeff of [place] 11.9 Plt Count 250 MPV 10.1 Immature Gran % (Auto) 0.300 Neut % (Auto) 76.5 H Lymph % (Auto) 17.1 L [place] % (Auto) 5.3 Eos % (Auto) 0.4 Baso % (Auto) 0.4 Absolute Neuts (auto) 5.6 Absolute Lymphs (auto) 1.25 Nucleated RBC % 0 Sodium 137 Potassium 3.3 L Chloride 100 Carbon Dioxide 25.0 Anion Gap 12 BUN 9 Creatinine 1.26 Estim Creat Clear Calc 74.86 Est GFR (MDRD) Af Amer 76 Est GFR (MDRD) Non-Af 63 BUN/Creatinine Ratio 7.1 L Glucose 138 H Calcium 9.0 Troponin I < 0.015 Cardiology Labs/Tests 04/07/21 11:59: WBC 7.3, RBC 4.35 L, Hgb 14.2, Hct 40.2, MCV 92.4, MCH 32.6 H, MCHC 35.3, Plt Count 250, MPV 10.1, Immature Gran % (Auto) 0.300, Neut % (Auto) 76.5 H, Lymph % (Auto) 17.1 L, [place] % (Auto) 5.3, Eos % (Auto) 0.4, Baso % (Auto) 0.4, Absolute Neuts (auto) 5.6, Nucleated RBC % 0 04/07/21 11:59: Sodium 137, Potassium 3.3 L, Chloride 100, Carbon Dioxide 25.0, Anion Gap 12, BUN 9, Creatinine 1.26, Est GFR (MDRD) Af Amer 76, Est GFR (MDRD) Non-Af 63, BUN/Creatinine Ratio 7.1 L, Glucose 138 H, Calcium 9.0, Troponin I < 0.015 Rhythm: EKG: Normal sinus rhythm with no acute changes ECHO: Stress Test: Cardiac Cath: PCI: CT Surgery: Holter monitor: EPS: PPM: CXR: Chest CT Scan: Radiography Diagnostic Testing: Radiology Impression Chest X-Ray 04/07/21 13:11 IMPRESSION: Normal x-ray examination of the chest. Unchanged since September 2019 Electronically Signed: Jian Johnson, at 13:22 EDT Tel , Service support ,
--- NOTE | 2021-04-07 15:25 | CASEMGMT ---
According to the [employer]MO website, the following are in-network tertiary facilities: [facility], [facility], [facility], [facility], [facility], [facility], [facility], [facility], [employer], and . Oh [facility]
[2021-04-07 16:03] LABS: Cholesterol 246 mg/dL (200); High Density Lipoprotein 78 mg/dL; Triglycerides 227 mg/dL; Very Low Density Lipoprotein 45 mg/dL (5-40)
[2021-04-07] MEDS: Potassium Chloride Oral Tablet 20 MEQ 40 MEQ PO (17:17)
[2021-04-07] MEDS: lamoTRIgine 100 MG Tablet 200 MG PO (20:41)
[2021-04-07] MEDS: lamoTRIgine 150 MG Tablet 75 MG PO (20:41)
[2021-04-07] MEDS: Tamsulosin HCl 0.4 MG Capsule PO (20:42)
[2021-04-07] MEDS: DiphenhydrAMINE 25 MG Capsule PO (20:42)
[2021-04-07] MEDS: Atorvastatin Calcium 20 MG Tablet PO (20:42)
[2021-04-08] VITALS (13 sets, daily range): BP systolic 108–144; BP diastolic 63–88; PULSE 52–83; RESP 16–18; TEMP 35.8–36.4; O2SAT 95–100
--- NOTE | 2021-04-08 05:55 | EKG12_ITS ---
Test Reason : AM EKG Blood Pressure : / mmHG Vent. Rate : 059 BPM Atrial Rate : 059 BPM P-R Int : 160 ms QRS Dur : 092 ms QT Int : 426 ms P-R-T Axes : 058 032 059 degrees QTc Int : 421 ms Sinus bradycardia Otherwise normal ECG Confirmed by CAILIN CONKLIN, STAS ([id number]), editor school photograph SALEEM JUNIOR ([id number]) on 04/09/2021 9:32:30 AM Referred By: BENJAMIN Confirmed By:STAS SIMOEN MD
[2021-04-08] MEDS: Losartan Potassium 50 MG Tablet PO (06:26)
[2021-04-08] MEDS: Aspirin 81 MG TAB.CHEW PO (06:27)
[2021-04-08] MEDS: 0.9% Saline Lock 10 ML Syringe IV (06:27)
--- NOTE | 2021-04-08 07:00 | NURSING ---
Report called to JM Irving in [employer] laboratory manager.
--- NOTE | 2021-04-08 07:45 | PN.CARD_ITS ---
Subjective Subjective Patient seen and evaluated. He appears to be doing well. Underwent cardiac catheterization this morning Objective Data Vital Signs: Vital Signs Temp Pulse Resp BP Pulse Ox 96.5 F L 62 16 144/78 H 97 04/08/21 06:24 04/08/21 07:00 04/08/21 06:24 04/08/21 06:24 04/08/21 06:24 Oxygen Delivery Method Room Air Weight: 235 lb 4.8 oz Body Mass Index (BMI) 31.0 Intake & Output: Intake and Output for Last 24 Hours 04/06/21 04/07/21 04/08/21 23:59 23:59 23:59 Intake Total 240 / 740 500 / 500 Balance 240 / 740 500 / 500 Lab / Micro Data Result Diagrams: 04/07/21 11:59 04/07/21 11:59 Labs: Laboratory Results - last 24 hr 04/07/21 04/07/21 04/07/21 11:59 11:59 11:59 WBC 7.3 RBC 4.35 L Hgb 14.2 Hct 40.2 MCV 92.4 MCH 32.6 H MCHC 35.3 RDW Std Deviation 39.8 RDW Coeff of [place] 11.9 Plt Count 250 MPV 10.1 Immature Gran % (Auto) 0.300 Neut % (Auto) 76.5 H Lymph % (Auto) 17.1 L [place] % (Auto) 5.3 Eos % (Auto) 0.4 Baso % (Auto) 0.4 Absolute Neuts (auto) 5.6 Absolute Lymphs (auto) 1.25 Nucleated RBC % 0 Sodium 137 Potassium 3.3 L Chloride 100 Carbon Dioxide 25.0 Anion Gap 12 BUN 9 Creatinine 1.26 Estim Creat Clear Calc 74.86 Est GFR (MDRD) Af Amer 76 Est GFR (MDRD) Non-Af 63 BUN/Creatinine Ratio 7.1 L Glucose 138 H Calcium 9.0 Troponin I < 0.015 Triglycerides 227 H Cholesterol 246 H LDL Cholesterol 123 VLDL Cholesterol 45 H HDL Cholesterol 78 04/07/21 04/07/21 16:13 18:00 WBC RBC Hgb Hct MCV MCH MCHC RDW Std Deviation RDW Coeff of [place] Plt Count MPV Immature Gran % (Auto) Neut % (Auto) Lymph % (Auto) [place] % (Auto) Eos % (Auto) Baso % (Auto) Absolute Neuts (auto) Absolute Lymphs (auto) Nucleated RBC % Sodium Potassium Chloride Carbon Dioxide Anion Gap BUN Creatinine Estim Creat Clear Calc Est GFR (MDRD) Af Amer Est GFR (MDRD) Non-Af BUN/Creatinine Ratio Glucose Calcium Troponin I < 0.015 < 0.015 Triglycerides Cholesterol LDL Cholesterol VLDL Cholesterol HDL Cholesterol Cardiology Labs/Tests 04/07/21 11:59: WBC 7.3, RBC 4.35 L, Hgb 14.2, Hct 40.2, MCV 92.4, MCH 32.6 H, MCHC 35.3, Plt Count 250, MPV 10.1, Immature Gran % (Auto) 0.300, Neut % (Auto) 76.5 H, Lymph % (Auto) 17.1 L, [place] % (Auto) 5.3, Eos % (Auto) 0.4, Baso % (Auto) 0.4, Absolute Neuts (auto) 5.6, Nucleated RBC % 0 04/07/21 11:59: Sodium 137, Potassium 3.3 L, Chloride 100, Carbon Dioxide 25.0, Anion Gap 12, BUN 9, Creatinine 1.26, Est GFR (MDRD) Af Amer 76, Est GFR (MDRD) Non-Af 63, BUN/Creatinine Ratio 7.1 L, Glucose 138 H, Calcium 9.0, Troponin I < 0.015 04/07/21 11:59: Triglycerides 227 H, Cholesterol 246 H, LDL Cholesterol 123, VLDL Cholesterol 45 H, HDL Cholesterol 78 04/07/21 16:13: Troponin I < 0.015 04/07/21 18:00: Troponin I < 0.015 Rhythm: EKG: ECHO: Stress Test: Cardiac Cath: PCI: CT Surgery: Holter monitor: EPS: PPM: CXR: Chest CT Scan: Radiography Diagnostic Testing: Radiology Impression Chest X-Ray 04/07/21 13:11 IMPRESSION: Normal x-ray examination of the chest. Unchanged since September 2019 Electronically Signed: Jian Johnson, at 13:22 EDT Tel , Service support , Physical Exam Const oriented x3 and healthy appearing Orientation / Consciousness: awake HEENT normocephalic Eyes PERRL and conjunctivae normal Neck supple, no JVD and no carotid bruits Chest inspection of chest normal Resp normal respiratory effort and clear to auscultation bilaterally Cardio Palpation: normal PMI Rate: regular rate Rhythm: regular rhythm Heart Sounds: S1 normal and S2 normal Peripheral Pulses: pulses 2+ throughout GI normal to inspection, nondistended, normoactive bowel sounds Extremity normal to inspection and no clubbing, cyanosis or edema Psych mental status grossly normal Assessment & Plan Assessment/Plan (1) Chest pain: PLAN: Chest pains. Stable. The patient underwent cardiac catheterization today. Demonstrated minimal coronary artery disease. Would recommend aggressive medical therapy. He can be discharged for outpatient follow-up. (2) Hypertension: PLAN: His blood pressure will continue to be aggressively treated. We will continue with risk factor modification.
[2021-04-08] MEDS: Ezetimibe 10 MG Tablet PO (08:12)
[2021-04-08] MEDS: lamoTRIgine 100 MG Tablet 200 MG PO (08:13)
[2021-04-08] MEDS: DULoxetine Hcl 60 MG Capsule PO (08:14)
[2021-04-08] MEDS: lamoTRIgine 150 MG Tablet 75 MG PO (08:14)
[2021-04-08] MEDS: 0.9% Normal Saline 1,000 ML 60 ML IV (08:14)
[2021-04-08] MEDS: hydroCHLOROthiazide 12.5mg 12.5 MG PO (08:15)
[2021-04-08 08:55] LABS: ALB/GLOB Ratio 1.1 RATIO (0.9-2.4); AST(SGOT) 23 U/L (15-37); Alanine Aminotransfer ALT/SGPT 34 U/L (16-61); Albumin, Serum 3.4 g/dL (3.2-5.0); Alkaline Phosphatase 59 U/L (45-117); Anion Gap 7 (5-15); BUN 13 mg/dL (7-18); BUN/Creat Ratio 13.1 RATIO (10-20); Calcium,Total 8.6 mg/dL (8.5-10.1); Chloride 105 mmol/L (98-107); Creatinine, Serum 0.99 mg/dL (0.70-1.30); EST Glomerular Filtration Rate 83 mL/min (>60); Est Glom Filt Rate - Afr Amer 101 mL/min (>60); Estimated Creatinine Clearance 95.28 ml/min; Glucose 105 mg/dL (74-106); Potassium 4.3 mmol/L (3.5-5.1); Protein, Total 6.4 g/dL (6.4-8.2); Sodium Level 138 mmol/L (136-145)
--- NOTE | 2021-04-08 10:37 | PCM.DC ---
Discharge Instructions Diet Discharge Diet: No restrictions Activity Discharge Activity: Return to Normal Activity Additional Activity Instructions:: Follow-up postop cath instructions Dressing / Incision Call your doctor if your incision/area has: Continuous Slow Oozing, Sudden Increased Bleeding, Increased Pain/ Swelling, Increased Redness, Foul Smelling Discharge and Swelling at the incision site Call your doctor if you observe: Shortness of breath, Dizziness and Chest pain Follow Up Care Test Results: Test results from this visit will be discussed in further detail at your follow-up appointment, if applicable. Discharge Plan Admission Admit Date/Time: 04/07/21 14:12 Primary Reason for Your Visit: Chest pain Attending Provider: Virgie Sparrow Primary Care Provider: Reyes Muñoz Consulting Providers: Brett Her Discharge Orders/Prescriptions Prescriptions: Continued simvastatin 40 MG tablet 40 mg PO QHS RF: 0 tamsulosin [Flomax] 0.4 MG capsule 0.4 mg PO QHS RF: 0 lamotrigine [Lamictal] 100 MG tablet 275 mg PO BID RF: 0 ezetimibe 10 MG tablet 10 mg PO DAILY RF: 0 Unisom (doxylamine) 25 mg Tablet 25 mg PO QHS PRN (Reason: Sleep) RF: 0 losartan-hydrochlorothiazide 50-12.5 mg tablet 1 tab PO DAILY RF: 0 duloxetine 60 mg capsule,delayed release(DR/EC) 60 mg PO DAILY RF: 0 aspirin 81 mg Tablet,Delayed Release (Dr/Ec) 81 mg PO QODAY RF: 0 docusate sodium 100 mg Capsule 100 mg PO DAILY RF: 0 Referrals / Follow Up: Reyes Muñoz MD [Primary Care Provider] - In 1 Week Disposition Disposition (needs filled in before D/C Order can be placed): Home, Self Care
--- NOTE | 2021-04-08 10:49 | PCM.DC.SUM ---
Documented by User: Micki Logan NP, HIGH SCHOOL COMPUTER SCIENCE TEACHER-C 04/08/21 11:02 Providers Date of Admission: 04/07/21 Date of Discharge: 04/08/21 Primary Care Physician: Dr. Reyes Muñoz MD Consultations 04/07/21 14:01 Consult: Cardiology Routine Consulting Provider: Brett Her Reason for Consult: Classic angina, cardiac catheterization EMERGENT Consult: Yes MD Notified: Yes Date Notified: 04/07/21 Time Notified: 14:01 Method of Notification: Verbal Reason For Visit: CHEST PAIN Diagnosis Discharge Diagnosis (1) Chest pain: Status: Acute Code(s): R07.9 - Chest pain, unspecified (2) Hypertension: Status: Chronic Code(s): I10 - Essential (primary) hypertension Medications at Discharge Home Medications ezetimibe 10 mg PO DAILY 02/22/17 lamotrigine [Lamictal] 275 mg PO BID 02/22/17 simvastatin 40 mg PO QHS 02/22/17 tamsulosin [Flomax] 0.4 mg PO QHS 02/22/17 Unisom (doxylamine) 25 mg PO QHS PRN 04/07/21 aspirin 81 mg PO QODAY 04/07/21 docusate sodium 100 mg PO DAILY 04/07/21 duloxetine 60 mg PO DAILY 04/07/21 losartan-hydrochlorothiazide 1 tab PO DAILY 04/07/21 Hospital Course Operations None Procedures Cardiac catheterization Summary of Care Provided Minutes Spent on Discharge: 35 Hospital Course: Patient is a 56-year-old male admitted 04/07/2021 due to chest pain. 1. Chest pain-ACS ruled out. Troponin negative. Chest x-ray unremarkable. Cardiology consulted. Patient underwent heart cath which showed minimal coronary artery disease, nonobstructive. Continue home aspirin, statin regimen. Follow-up with PCP in 1 week. 2. Hypokalemia- replaced per protocol. 3. Hypertension-stable, continue losartan/HCTZ. 4. Seizure disorder-on lamotrigine. Follows with neurology as outpatient, recent follow-up per patient. 5. Hyperlipidemia-continue statin. 6. Depression-continue paroxetine. 7. 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 Patient seen and examined prior to discharge. Physical assessment as noted below. Patient is stable for discharge with follow up recommendations as noted above. This patient was seen by CHANDRA Carter under the supervision of Dr. Sparrow. Physical Exam Const alert, oriented x3 and no apparent distress Orientation / Consciousness: awake, oriented to person, oriented to place and oriented to time HEENT normocephalic and moist oral mucous membranes Eyes PERRL, EOMs intact bilaterally and conjunctivae normal Neck no lymphadenopathy Resp normal respiratory effort and clear to auscultation bilaterally Cardio regular rate, regular rhythm and no murmurs Peripheral Pulses: pulses 2+ throughout GI normal to inspection, nondistended, normoactive bowel sounds, non-tender and non-distended Extremity normal to inspection Skin no rashes or lesions noted Lesions: no lesions Rashes: no rashes Trauma: no lacerations or abrasions Neuro CN's II-XII intact bilaterally, no focal motor deficits, no sensory deficits noted and deep tendon reflexes 2+ bilaterally Psych mental status grossly normal and affect normal Weight / BMI Weight Weight: 235 lb 4.8 oz Body Mass Index (BMI) 31.0 ABG / Lab / Microbiology Data Result Diagrams: 04/07/21 11:59 04/08/21 08:30 Laboratory: Laboratory Results - last 24 hr 04/07/21 04/07/21 04/07/21 11:59 11:59 11:59 WBC 7.3 RBC 4.35 L Hgb 14.2 Hct 40.2 MCV 92.4 MCH 32.6 H MCHC 35.3 RDW Std Deviation 39.8 RDW Coeff of [place] 11.9 Plt Count 250 MPV 10.1 Immature Gran % (Auto) 0.300 Neut % (Auto) 76.5 H Lymph % (Auto) 17.1 L Barber % (Auto) 5.3 Eos % (Auto) 0.4 Baso % (Auto) 0.4 Absolute Neuts (auto) 5.6 Absolute Lymphs (auto) 1.25 Nucleated RBC % 0 Sodium 137 Potassium 3.3 L Chloride 100 Carbon Dioxide 25.0 Anion Gap 12 BUN 9 Creatinine 1.26 Estim Creat Clear Calc 74.86 Est GFR (MDRD) Af Amer 76 Est GFR (MDRD) Non-Af 63 BUN/Creatinine Ratio 7.1 L Glucose 138 H Calcium 9.0 Total Bilirubin AST ALT Alkaline Phosphatase Troponin I < 0.015 Total Protein Albumin Globulin Albumin/Globulin Ratio Triglycerides 227 H Cholesterol 246 H LDL Cholesterol 123 VLDL Cholesterol 45 H HDL Cholesterol 78 06/21/21 06/21/21 06/22/21 16:13 18:00 08:30 WBC RBC Hgb Hct MCV MCH MCHC RDW Std Deviation RDW Coeff of [place] Plt Count MPV Immature Gran % (Auto) Neut % (Auto) Lymph % (Auto) Barber % (Auto) Eos % (Auto) Baso % (Auto) Absolute Neuts (auto) Absolute Lymphs (auto) Nucleated RBC % Sodium 138 Potassium 4.3 Chloride 105 Carbon Dioxide 26.0 Anion Gap 7 BUN 13 Creatinine 0.99 Estim Creat Clear Calc 95.28 Est GFR (MDRD) Af Amer 101 Est GFR (MDRD) Non-Af 83 BUN/Creatinine Ratio 13.1 Glucose 105 Calcium 8.6 Total Bilirubin 0.50 AST 23 ALT 34 Alkaline Phosphatase 59 Troponin I < 0.015 < 0.015 Total Protein 6.4 Albumin 3.4 Globulin 3.0 Albumin/Globulin Ratio 1.1 Triglycerides Cholesterol LDL Cholesterol VLDL Cholesterol HDL Cholesterol Radiography Diagnostic Testing: Radiology Impression Chest X-Ray 04/07/21 13:11 IMPRESSION: Normal x-ray examination of the chest. Unchanged since September 2019 Electronically Signed: Jian Johnson, at 13:22 EDT Tel , Service support , D/C Instructions Discharge Diet: No restrictions Additional Activity Instructions: Follow-up postop cath instructions Call your doctor if your incision/area has: Continuous Slow Oozing, Sudden Increased Bleeding, Increased Pain/ Swelling, Increased Redness, Foul Smelling Discharge and Swelling at the incision site Call your doctor if you observe: Shortness of breath, Dizziness and Chest pain Meaningful Use Info Meaningful Use Diagnoses (Choose all that apply): None applicable Discharge Plan Admission Admit Date/Time: 04/07/21 14:12 Primary Reason for Your Visit: Chest pain Attending Provider: Virgie Sparrow Primary Care Provider: Reyes Muñoz Consulting Providers: Brett Her Discharge Orders/Prescriptions Prescriptions: Continued simvastatin 40 MG tablet 40 mg PO QHS RF: 0 tamsulosin [Flomax] 0.4 MG capsule 0.4 mg PO QHS RF: 0 lamotrigine [Lamictal] 100 MG tablet 275 mg PO BID RF: 0 ezetimibe 10 MG tablet 10 mg PO DAILY RF: 0 Unisom (doxylamine) 25 mg Tablet 25 mg PO QHS PRN (Reason: Sleep) RF: 0 losartan-hydrochlorothiazide 50-12.5 mg tablet 1 tab PO DAILY RF: 0 duloxetine 60 mg capsule,delayed release(DR/EC) 60 mg PO DAILY RF: 0 aspirin 81 mg Tablet,Delayed Release (Dr/Ec) 81 mg PO QODAY RF: 0 docusate sodium 100 mg Capsule 100 mg PO DAILY RF: 0 Referrals / Follow Up: Reyes Muñoz MD [Primary Care Provider] - In 1 Week Disposition Disposition (needs filled in before D/C Order can be placed): Home, Self Care Documented by User: Dr. Virgie Sparrow MD 04/08/21 13:56 Providers Date of Admission: 04/07/21 Reason For Visit: CHEST PAIN Medications at Discharge Home Medications ezetimibe 10 mg PO DAILY 02/22/17 lamotrigine [Lamictal] 275 mg PO BID 02/22/17 simvastatin 40 mg PO QHS 02/22/17 tamsulosin [Flomax] 0.4 mg PO QHS 02/22/17 Unisom (doxylamine) 25 mg PO QHS PRN 04/07/21 aspirin 81 mg PO QODAY 04/07/21 docusate sodium 100 mg PO DAILY 04/07/21 duloxetine 60 mg PO DAILY 04/07/21 losartan-hydrochlorothiazide 1 tab PO DAILY 04/07/21 ABG / Lab / Microbiology Data Result Diagrams: 04/07/21 11:59 04/08/21 08:30 Discharge Plan Admission Admit Date/Time: 04/07/21 14:12 Primary Reason for Your Visit: Chest pain Attending Provider: Virgie Sparrow Primary Care Provider: Reyes Muñoz Consulting Providers: Brett Her Discharge Orders/Prescriptions Prescriptions: Continued simvastatin 40 MG tablet 40 mg PO QHS RF: 0 tamsulosin [Flomax] 0.4 MG capsule 0.4 mg PO QHS RF: 0 lamotrigine [Lamictal] 100 MG tablet 275 mg PO BID RF: 0 ezetimibe 10 MG tablet 10 mg PO DAILY RF: 0 Unisom (doxylamine) 25 mg Tablet 25 mg PO QHS PRN (Reason: Sleep) RF: 0 losartan-hydrochlorothiazide 50-12.5 mg tablet 1 tab PO DAILY RF: 0 duloxetine 60 mg capsule,delayed release(DR/EC) 60 mg PO DAILY RF: 0 aspirin 81 mg Tablet,Delayed Release (Dr/Ec) 81 mg PO QODAY RF: 0 docusate sodium 100 mg Capsule 100 mg PO DAILY RF: 0 Referrals / Follow Up: Reyes Muñoz MD [Primary Care Provider] - In 1 Week Disposition Disposition (needs filled in before D/C Order can be placed): Home, Self Care Charges/Coding Addendum Addendum: This patient was seen in conjunction with Micki Logan. I have independently interviewed and examined the patient and reviewed pertinent historical, laboratory, and other data. I have reviewed her note and concur with her documentation 56-year-old male with multiple comorbidities who was admitted with chest pain and dizziness. Patient has had intermittent chest pain described as heaviness BOTH on exertion and at rest, associated with shortness of breath and dizziness. His admitting chest x-ray was unremarkable. EKG shows normal sinus rhythm, no acute changes. Patient's troponins were negative. Cardiology was consulted from the ED. Patient underwent a cardiac cath that was unremarkable. On the day of discharge, patient was seen and examined. All questions were answered. Physical Exam: Gen: Comfortable, not pale, not jaundiced CVS:HS I +II, regular, no murmurs RESP: Diminished at lung bases GI: BS present and normal, soft, nontender, no palpable organs EXT:No edema Visit Charges Inpatient E&M: 62259 Disch Hosp
--- NOTE | 2021-04-10 12:31 | CL.D_ITS ---
Patient Name: REGAN DIAZ Study Date: 04/08/2021 Performing: Brett Her MD Ht: 73 inches 185 cm : 1965 Wt: 236.2 lbs 107 kg Age: 56 Gender: male BSA: 2.3 PROCEDURE(S) PERFORMED JE73-MFR/COR/LV CLINICAL PROFILE AND INDICATIONS Indications: Suspected CAD Heart Failure: None Stress/Imaging Stress/Image Study Performed: No CAD Presentations: Unstable angina. CONCLUSIONS Minimal coronary artery disease nonobstructive. RECOMMENDATIONS Medical therapy DESCRIPTION OF PROCEDURE The patient arrived to the procedure lab. The risks and benefits of the procedure as well as a full d escription of our services here and current unavailability of surgical backup were fully explained to the patient and/or their significant other prior to the catheterization. The Timeout was completed, verifying the correct patient and procedure. The patient's procedural site was prepped and draped in the usual fashion. Local anesthetic was given subcutaneously to right radial region with Lidocaine 2% . Using a modified Seldinger technique, arterial access was obtained via the right radial artery, a 6 Fr sheath was inserted. Right Coronary Artery selective angiography was then performed in multiple v iews using a 5 Fr. 4.0 [place] catheter. Left Coronary Artery selective angiography was performed in mu ltiple views using a 5 Fr. 4.0 [place] catheter. Left Ventriculography was performed in CORRAL projection using a 5 Fr. Pigtail catheter. LV to AO pullback pressures were then recorded.The arterial sheath was flushed. The arterial sheath was pulled and a TR Band was applied for hemostasis w/ 10ml air CORONARY ANGIOGRAPHY DOMINANCE: Right Dominant LEFT HEART ASSESSMENT Left Ventricular Ejection Fraction: by LV Gram 60 % Normal LV wall motion Normal Left Ventricular systolic function LEFT MAIN: Angiographically normal LEFT ANTERIOR DESCENDING ARTERY: Mild calcification, No significant disease noted CIRCUMFLEX ARTERY: No significant disease noted RIGHT CORONARY ARTERY: Mild luminal irregularities COMPLICATIONS No Complications PROCEDURE MEDICATIONS Versed 1 mg IV Fentanyl 50 mcg IV Oxygen: 2 L/min via nasal cannula Heparin given IA 04/08/2021 07:32:40 Verapamil 2.5mg, Ntg 100mcgs, 3000 units of Heparin given IA 04/08/2021 07:32:40 IV Bolus: .9 NaCl 150 ml total 04/08/2021 07:35:06 SUMMARY OF HEMODYNAMIC DATA Time AIR REST ECG 07:12:50 AO 91/61 (76) SA 07:34:14 LV 113/-2, 2 07:41:23 LV 112/0, 1 07:41:30 LV 110/2, 4 07:42:01 LV 110/3, 5 07:42:07 LVp 111/2, 5 07:42:10 AOp 117/67 (89) 07:42:15 Signed By Brett Her MD On 04/08/2021 07:52:12 Brett Her MD
== END 2021-04-08 11:30 | disposition home or self-care (01) ==
LOC: ED 12:29 → PCU 14:22
PROVIDERS: Admitting Provider Hospitalist; Emergency Provider Emergency Medicine; PCP Family Medicine; Visit Provider Internal Medicine
DX: R07.89 Other chest pain (principal); R06.02 Shortness of breath; F17.210 Nicotine dependence, cigarettes, uncomplicated; R42 Dizziness and giddiness; I10 Essential (primary) hypertension; E11.9 Type 2 diabetes mellitus without complications; E78.5 Hyperlipidemia, unspecified; F32.9 Major depressive disorder, single episode, unspecified; G40.909 Epilepsy, unspecified, not intractable, without status epilepticus; E87.6 Hypokalemia; Z79.899 Other long term (current) drug therapy; Z82.49 Family history of ischemic heart disease and other diseases of the circulatory system; Z79.82 Long term (current) use of aspirin
CPT/HCPCS: 36415; 71045; 80048; 80053; 80061; 84484; 85025; 93005; 93458; 99152; 99153; 99218; 99285; J7030; A4216; C1769; C1894; G0378; Q9967

== ENCOUNTER 2021-05-14 07:37 | Inpatient (IN) | payer OTHER, SELFPAY ==
[2021-04-07 15:39] VITALS: BMI 31.0
[2021-05-08 12:49] LABS: Partial Thromboplast Time 25.3 Seconds (24.1-36.2)
[2021-05-13 16:16] LABS: Lamotrigine (Lamictal) Level 7.8 ug/mL (2.0-20.0)
[2021-05-14] VITALS (11 sets, daily range): BP systolic 118–151; BP diastolic 65–83; PULSE 58–75; RESP 16–18; TEMP 35.8–36.6; O2SAT 94–100; BMI 29.9
--- NOTE | 2021-05-14 | PROS_PTH ---
PATIENT: REGAN DIAZ LOC: MS3 U#:[id number] AGE/SX: 56/M ROOM: [facility] [place] RE05/14/[address]: Dr. Jg Muhammad MD : 1965 BED: 1 DIS: 05/15/2021 SPEC #: [id number] RECD: 05/14/21 15:09 STATUS: EDITA BOYD #: [id number] NICOLAS: 05/14/21 00:[address]: Jg Muhammad DEPT: SURGICAL PATHOLOGY RECD BY: Willi Morillo ENTERED: 05/15/21 07:54 SP TYPE: TURP OTHR DR: Dr. Reyes Muñoz MD Tissues: Prostate, NOS Procedures: Surgery Specimen Level IV HEADER OPERATION: Cystoscopy, transurethral resection of prostate PRE-OP DIAGNOSIS: BPH with obstruction/lower urinary tract symptoms TISSUE SUBMITTED: Prostate tissue MICROSCOPIC DIAGNOSIS Prostate tissue, TUR: Benign prostatic hyperplasia, glandular and stromal type. SJ:amy 05/16/2021 MICROSCOPIC DESCRIPTION Slides are reviewed. GROSS DESCRIPTION Received is one container labeled with the patient's name and designated prostate tissue. The specimen consists of multiple irregular fragments of pink-calixto, rubbery, soft tissue that in aggregate weigh 3.4 gm and measure in aggregate 4 x 1 x 0.7 cm. The entire specimen is submitted in four cassettes. / AMI:amy 05/15/21 TC:4 CPT: 85806
[2021-05-14] MEDS: Lactated Ringers 1,000 ML 100 ML IV ×2 (05:55→10:05)
[2021-05-14] MEDS: Cefazolin 2 GM in 0.9% Normal Saline 100 ML IV (07:28)
--- NOTE | 2021-05-14 07:34 | HP.PCM_ITS ---
HPI - General HPI Narrative REGAN DIAZ, is a 56 M who presents for repair of a bladder that is herniated through a direct inguinal hernia and removal of a diverticulum repair of the diverticulum as well with a TURP. The patient has been having significant urinary symptoms because of this hernia with his bladder with frequency urgency nocturia slow flow and pain. [facility] Medical History (Updated 05/14/21 @ 07:[address] Jg Muhammad MD) Alcohol use Back pain Cardiology follow-up encounter Chest pain Depression Depression Essential (primary) hypertension GERD (gastroesophageal reflux disease) Heartburn High cholesterol History of pain when walking History of ulceration Hypertension Marijuana use Prostate disease Seizure disorder Seizures Smoker Smoker Wears glasses Home Medications ezetimibe 10 mg PO DAILY 02/22/17 [History Last Taken 04/06/21] lamotrigine [Lamictal] 275 mg PO BID 02/22/17 [History Last Taken 04/07/21] simvastatin 40 mg PO QHS 02/22/17 [History Last Taken 04/06/21] tamsulosin [Flomax] 0.4 mg PO QHS 02/22/17 [History Last Taken 04/06/21] Unisom (doxylamine) 25 mg PO QHS PRN 04/07/21 [History Last Taken 04/03/21] aspirin 81 mg PO QODAY 04/07/21 [History Last Taken 04/06/21] duloxetine 60 mg PO DAILY 04/07/21 [History Last Taken 04/07/21] losartan-hydrochlorothiazide 1 tab PO DAILY 04/07/21 [History Last Taken 04/07/21] Allergy/AdvReac Type Severity Reaction Status Date / Time No Known Allergies Allergy Verified 05/14/21 06:29 Family History Father CAD (coronary artery disease) Other Heart disease Surgical History (Updated 05/07/21 @ 13:56 by Zaina Bansal) History of herniorrhaphy History of left heart catheterization (04/08/21) Hx of colonoscopy Hx of hernia repair Social History household members: significant other history of recent travel: No sexually active: Yes Smoking Status: Current every day smoker tobacco type: cigarettes alcohol intake: current alcohol intake frequency: a few times a month ROS Constitutional Constitutional: Denies chills, fever(s) or malaise Eyes Eyes: Denies blurry vision or change in vision ENT HEENT: Reports none Cardiovascular Cardiovascular: Denies chest pain or palpitations Respiratory/Chest Respiratory/Chest: Denies cough or shortness of breath with exertion Gastrointestinal Gastrointestinal: Denies abdominal pain, constipation or diarrhea Musculoskeletal Musculoskeletal: Denies back pain, joint stiffness or joint swelling Integumentary Integumentary: Denies dry skin, jaundice, lesions or rash Neurologic Neurologic: Denies confusion, syncope or weakness Psychiatric Psychiatric: Reports none; Denies anxiety or depression Endocrine Endocrinology: Denies excessive sweating, fatigue or flushing Hematologic/Lymphatic Hematologic/Lymphatic: Denies anemia, easy bleeding or easy bruising Vital Signs Vital Signs Vital Signs: 05/14/21 06:09 Temperature 97.3 F L Temperature Source Temporal Pulse Rate 60 Respiratory Rate 16 Respiratory Pattern Normal Blood Pressure 145/81 H Blood Pressure Mean 102 Blood Pressure Source Monitor Blood Pressure Position Semi-Fowlers Blood Pressure Location Right Arm Pulse Ox 96 Oxygen Delivery Method Room Air Weight Weight: 105.8 kg Body Mass Index (BMI) 29.9 Physical Exam Const alert and oriented x3 General Appearance: cooperative HEENT normocephalic, head/scalp atraumatic, EAC's normal and TM's normal bilaterally Eyes PERRL and EOMs intact bilaterally Pupil: sluggish Neck no lymphadenopathy, supple and no JVD General: trachea midline Lymph Lymphatic: no lymphadenopathy noted, lymphedema and lymphadenopathy Resp normal respiratory effort, normal air movement and clear to auscultation bilaterally Cardio regular rate, regular rhythm and peripheral pulses 2+ throughout GI soft to palpation, non-tender and non-distended Extremity normal capillary refill and no clubbing, cyanosis or edema General Extremity: no tenderness to palpation of joints or extremities Skin no rashes or lesions noted General Skin Exam: turgor normal Lesions: no lesions Rashes: no rashes Neuro CN's II-XII intact bilaterally Speech: speech normal Motor Exam: strength 5/5 throughout; Negative for general weakness Psych thought process normal, cooperative and affect normal Appearance: appropriate Results Lab / Micro Data Labs: Laboratory Results - last 24 hr 05/08/21 11:01: Lamotrigine 7.8 Micro: Microbiology 05/13/21 16:05 Interface Orders SARS-CoV-2 Antigen (Rapid) - Final Assessment & Plan Assessment/Plan (1) BPH with obstruction/lower urinary tract symptoms: PLAN: Plan to do a TURP (2) Direct inguinal hernia: PLAN: Plan to reduce the hernia and repair (3) Bladder diverticulum: PLAN: Plan to correct the bladder diverticulum.
[2021-05-14] MEDS: Lubricating Jelly 60 GM Tube 30 GM TOPICAL (09:20)
[2021-05-14] MEDS: Bupivacaine Mpf 0.5% 30 ML VIAL (09:20)
--- NOTE | 2021-05-14 09:38 | OP.PCM_ITS ---
Report of Operation Date of Procedure: 05/14/21 Pre-Operative Diagnosis: Large direct inguinal hernia with the bladder and a bl adder diverticulum, BPH with obstruction Post-Operative Diagnosis: Same Surgery/Procedure Performed:: Laparoscopic robotic assisted reduction of a d irect inguinal hernia with strangulated bladder and diverticulectomy, transurethral resection of the prostate Description of Surgical Findings:: This is a 56-year-old male has a very complex situation he has a large bladder that strangulated into a direct inguinal hernia he has had a prior indirect and inguinal hernia repair in the past he also has BPH with obstruction he has severe urinary symptoms as a result of his obstruction and also the hernia that is herniating into the bladder into the direct hernia. So today working to do a robotic assisted laparoscopic direct inguinal hernia repair with mesh and remove the diverticulectomy and then do a transurethral resection of the prostate Patient was taken back to the operating room after smooth induction of general anesthesia he was placed in supine position. The abdomen and penis and testicles were prepped and draped in usual sterile fashion. I went in and small incision above the umbilicus introduced a Veress needle into the peritoneal cavity obtained pneumoperitoneum and placed my trochars I placed a umbilical trocar right arm trocar into left arm trochars and then a 5 mm head start assistant teacher suction port. Once this was docked the robot was docked we looked in laparoscopically and immediately could see that the bladder was herniating directly into a direct inguinal hernia on the patient's right side I then incised the bladder flap and then reduce the bladder opened up and created the space of Retzius and then I I I have back I removed and remove the bladder using a fourth arm and the third a rm to pull back and remove the bladder and the diverticulum from the inside of the hernia the bladder was strangulated within the hernia after reducing the bladder completely then I filled the bladder up it was a small diverticulum to kill him that had to be removed but no specimen was necessary to remove. After this was corrected then there was a hernia sac we cut a piece of mesh and this was handed into one of the ports and then we laid the mesh on top of the defect and then I sewed the top side of the mesh in the defect to keep it in place keep it from moving and then the bottom side of the mesh was going down deep into the space of Retzius. I then closed the bladder flap back over the mesh with a using a 3 oh V-Loc stitch I ran the suture to put the flap of peritoneum about bladder flap back over the mesh to cover the defect after doing this we ran from both the right and left sides of the bladder flap until the bladder was completely sewn back in the place after securing the bladder plaque then we removed all the ports and we did closed the umbilical port with a Olegario Buck stitch. The patient was then reprepped and draped for transurethral resection of the prostate when of the bladder with a 24 Vietnamese noncontinuous flow resectoscope he had bilateral hypertrophy and obstruction of the prostate we did performed a resection of the prostate using the Olympus bipolar loop resecting the tissue from the verumontanum into the bladder neck once was all completely resected did a flow test he had a fairly wide open flow sphincter it was intact. I then Ellik out all the chips out of the bladder cauterize bleeding from the prostate and then we put a 22 Vietnamese catheter in the bladder and continuous irrigation the patient acetic was reversed and he was taken back to the PACU in good condition, his complex case took 2-1/2 hours to perform the reduction of the bladder from the strangulated direct inguinal hernia and diverticulectomy and also did a TURP. Type of Anesthesia: General Drains: 22fr [address] way Admit VTE Documentation VTE Present on Admission: No VTE Mechan Device Prophylaxis: SCD's
--- NOTE | 2021-05-14 09:38 | PCM.DC ---
Discharge Instructions Diet Discharge Diet: No restrictions Activity Discharge Activity: Return to Normal Activity and May Not Drive (while taking narcotic pain medications.) Dressing / Incision Call your doctor if you observe: Fever of 101 or Higher Follow Up Care Please Follow Up With: Jg Muhammad MD When: Call [phone] for an appointment Test Results: Test results from this visit will be discussed in further detail at your follow-up appointment, if applicable. Discharge Plan Admission Primary Reason for Your Visit: TURP Attending Provider: Jg Muhammad Primary Care Provider: Reyes Muñoz Instructions Patient Instructions: ED Chest Pain, Noncardiac Discharge Orders/Prescriptions Prescriptions: New oxycodone-acetaminophen 5-325 mg tablet 1 tab PO Q6H PRN (Reason: pain) 7 Days Qty: 14 RF: 0 ciprofloxacin HCl 500 mg tablet 500 mg PO BID Qty: 10 RF: 0 Continued simvastatin 40 MG tablet 40 mg PO QHS RF: 0 lamotrigine [Lamictal] 100 MG tablet 275 mg PO BID RF: 0 ezetimibe 10 MG tablet 10 mg PO DAILY RF: 0 Unisom (doxylamine) 25 mg Tablet 25 mg PO QHS PRN (Reason: Sleep) RF: 0 losartan-hydrochlorothiazide 50-12.5 mg tablet 1 tab PO DAILY RF: 0 duloxetine 60 mg capsule,delayed release(DR/EC) 60 mg PO DAILY RF: 0 Held aspirin 81 mg Tablet,Delayed Release (Dr/Ec) 81 mg PO QODAY RF: 0 Hold Instructions: Resume on 05/28/21. Discontinued tamsulosin [Flomax] 0.4 MG capsule 0.4 mg PO QHS RF: 0 Referrals / Follow Up: Reyes Muñoz MD [Primary Care Provider] - Jg Muhammad MD [STAFF PHYSICIAN] - Disposition Disposition (needs filled in before D/C Order can be placed): Home, Self Care
[2021-05-14] MEDS: Ipratropium/Albuterol Sulfate 3 ML AMPUL.NEB INHALATION (10:04)
[2021-05-14] MEDS: Ketorolac 15 MG/ML Vial IV (11:31)
[2021-05-14] MEDS: 0.9% Normal Saline 1,000 ML 125 ML IV ×2 (11:56→20:34)
--- NOTE | 2021-05-14 13:19 | CPS ---
started by nursing
[2021-05-14] MEDS: Ciprofloxacin 400 MG/200 ML BAG 200 MG IV (15:14)
[2021-05-14] MEDS: HYDROcodone Bitartrate/Apap 5/325 Tablet PO ×2 (15:14→22:18)
[2021-05-14] MEDS: Morphine 2 MG/ML Syringe IV ×2 (17:48→21:29)
[2021-05-15] MEDS: Ketorolac 15 MG/ML Vial IV ×2 (02:07→09:47)
[2021-05-15 02:15] VITALS: BP 110/52; PULSE 57; RESP 16; TEMP 36.6; O2SAT 97
[2021-05-15] MEDS: 0.9% Normal Saline 1,000 ML 125 ML IV (03:51)
[2021-05-15] MEDS: Ciprofloxacin 400 MG/200 ML BAG 200 MG IV (03:51)
--- NOTE | 2021-05-15 07:28 | PCM.PN.GU ---
Subjective Subjective Status post repair of herniation of the bladder into the large direct hernia and TURP Objective Data Objective Data Vital Signs: Vital Signs Temp Pulse Resp BP Pulse Ox 97.8 F 57 L 16 110/52 L 97 05/15/21 02:15 05/15/21 02:15 05/15/21 02:15 05/15/21 02:15 05/15/21 02:15 Oxygen Flow Rate (L/min) 2 Oxygen Delivery Method Room Air Weight: 105.8 kg Body Mass Index (BMI) 29.9 Intake & Output: Intake and Output for Last 24 Hours 05/13/21 05/14/21 05/15/21 23:59 23:59 23:59 Intake Total 3691.67 / 3691.67 1610.42 / 1610.42 Output Total 2250 / 2250 800 / 800 Balance 1441.67 / 1441.67 810.42 / 810.42 Lab / Micro Data Micro: Microbiology 05/13/21 16:05 Interface Orders SARS-CoV-2 Antigen (Rapid) - Final Physical Exam Const alert and oriented x3 General Appearance: cooperative HEENT normocephalic, head/scalp atraumatic, EAC's normal and TM's normal bilaterally Eyes PERRL and EOMs intact bilaterally Pupil: sluggish Neck no lymphadenopathy, supple and no JVD General: trachea midline Lymph Lymphatic: no lymphadenopathy noted, lymphedema and lymphadenopathy Resp normal respiratory effort, normal air movement and clear to auscultation bilaterally Cardio regular rate, regular rhythm and peripheral pulses 2+ throughout GI soft to palpation, non-tender and non-distended Extremity normal capillary refill and no clubbing, cyanosis or edema General Extremity: no tenderness to palpation of joints or extremities Skin no rashes or lesions noted General Skin Exam: turgor normal Lesions: no lesions Rashes: no rashes Neuro CN's II-XII intact bilaterally Speech: speech normal Motor Exam: strength 5/5 throughout; Negative for general weakness Psych thought process normal, cooperative and affect normal Appearance: appropriate Assessment & Plan Assessment/Plan (1) Bladder diverticulum: (2) Direct inguinal hernia: PLAN: DC Aguilera today home after voids he was given strict instructions no heavy lifting or heavy activity for 1 month.
[2021-05-15 07:29] VITALS: BP 145/76; PULSE 52; RESP 18; TEMP 36.6; O2SAT 98
[2021-05-15] MEDS: 0.9% Saline Lock 10 ML Syringe IV (09:47)
--- NOTE | 2021-05-15 10:45 | CASEMGMT ---
JM STEELE Assessment: Face to Face with pt for initial transition planning/care coordination assessment. RN IVETTE introduced self and role at [facility], pt voices understanding and consents to assessment. Pt is A/O x4 and answers all questions appropriately at this time. Pt reclining in chair in no distress. Care providers, pharmacy, and demographics verified/updated. Admitting Dx: cysto, TURP, [facility] PCP:Toni Specialists:Pt dov having any specialists. Preferred [facility]acy: [facility] Insurance: MMO Prescription Benefit: yes LW/HPOA: Pt denies having a LW/DPOA. LNOK: [facility], Living Arrangements: Pt lives with in a two story house with two steps to enter. Pt is I in ADL's and denies concerns at home. Transportation: Pt drives self and denies concerns with transportation. DME/HHC/SNF: Pt denies having any DME, prior hx of HHC or SNF stays. Pt states no concerns with going home at time of dc. Pt states no further concerns/needs. CM to follow. Advised pt to ask CM if any further question/concerns/needs arise, voices understanding. Pt Goal: Home Plan: Home with support.
[2021-05-15 10:47] VITALS: PULSE 70; RESP 16; O2SAT 98
[2021-05-15 13:14] VITALS: BP 146/84; PULSE 64; RESP 18; TEMP 37.2; O2SAT 98
[2021-05-15 13:17] VITALS: BP 146/84; PULSE 64; RESP 16; TEMP 36.7; O2SAT 98
--- NOTE | 2021-05-15 14:44 | NURSING ---
This RN reviewed SN charting
== END 2021-05-15 13:14 | disposition home or self-care (01) | DRG 707 ==
LOC: SDC 09:52 → MS3 09:52
PROVIDERS: Anesthesiology; Admitting Provider Urology; PCP Family Medicine; Referring Provider Urology; Visit Provider Urology
PROC: 0TBB4ZZ Excision of Bladder, Percutaneous Endoscopic Approach (ICD-10-PCS; CPT 51999; principal; 2021-05-14 07:00)
DX: N40.1 Benign prostatic hyperplasia with lower urinary tract symptoms (principal); N13.8 Other obstructive and reflux uropathy; N32.3 Diverticulum of bladder; K40.90 Unilateral inguinal hernia, without obstruction or gangrene, not specified as recurrent; F17.210 Nicotine dependence, cigarettes, uncomplicated; Z79.82 Long term (current) use of aspirin; Z82.49 Family history of ischemic heart disease and other diseases of the circulatory system
CPT/HCPCS: 36415; 82542; 85730; 87426; 88305; 94640; 99251; 99406; C9803; J7030; J7120; A4216; G0463; J0744; J2405

== ENCOUNTER → 2021-05-23 16:21 | Outpatient (CLI) | payer OTHER, SELFPAY ==
[2021-05-14 06:09] VITALS: BMI 29.9
== END ==
PROVIDERS: PCP Family Medicine; Visit Provider Family Medicine
DX: R30.0 Dysuria (principal)
CPT/HCPCS: 87086

== ENCOUNTER → 2022-03-26 | Outpatient (CLI) | payer OTHER, SELFPAY ==
--- NOTE | 2022-03-26 14:06 | RAD_ITS ---
STUDY: X-RAY CHEST REASON FOR EXAM: Male, 56 years old. CHEST PAIN cough TECHNIQUE: XR Chest 2 Views COMPARISON: 04/07/2021 FINDINGS: There is no demonstrated pleural abnormality. Normal size heart. Normal mediastinum and katya. Normal visualized pulmonary arteries. Normal visualized aortic arch and descending thoracic aorta. Normal visualized thoracic spine. Normal visualized ribs, clavicles, and shoulders. There is no demonstrated abnormality of the visualized soft tissue structures of the upper abdomen. RAD/Chest PA and Lateral IMPRESSION: There are no acute findings. Electronically Signed: Moiz Freeman MD at 19:37 EDT ,
== END | disposition home or self-care (01) ==
LOC: MTRAD 14:06
PROVIDERS: PCP Family Medicine; Referring Provider Nurse Practitioner Family; Visit Provider Nurse Practitioner Family
DX: R05.9 Cough, unspecified (principal)
CPT/HCPCS: 71046

== ENCOUNTER → 2022-09-16 | Outpatient (CLI) | payer OTHER, SELFPAY | END | disposition home or self-care (01) | LOC: MTLAB 08:05 | PROVIDERS: PCP Family Medicine; Referring Provider Registered Nurse; Visit Provider Registered Nurse | DX: Z12.5 Encounter for screening for malignant neoplasm of prostate (principal) | CPT/HCPCS: 36415; 84153; G0103 ==

== ENCOUNTER → 2022-11-30 | Outpatient (CLI) | payer OTHER, SELFPAY ==
[2022-11-30 18:03] LABS: Absolute Lymphocyte Count 1.31 X10^3/uL (0.83-4.51); Basophil# 0.04 X10^3/uL; Basophil% 0.8 % (0-1); Eosinophil# 0.14 X10^3/uL; Eosinophils% 2.8 % (0-5); Hematocrit 38.7 % (40-54); Hemoglobin 13.3 g/dL (13.0-16.5); Lymphocyte # 1.31 X10^3/ul (0.83-4.51); Lymphocyte % 26.1 % (19-41); Mean Corp Hgb Conc 34.4 g/dL (32-36); Mean Corpuscular Hgb 32.5 pg (27.0-32.0); Mean Corpuscular Volume 94.6 fL (80-94); Mean Platelet Vol. 10.4 fl (6.2-12.0); Monocyte# 0.49 X10^3/uL; Monocyte% 9.8 % (0-10); NRBC Flagged by Analyzer 0 % (0-5); Neutrophil # 3.02 X10^3/uL (2.7-7.7); Neutrophil % 60.1 % (47-70); Platelet Count 250 K/mm3 (150-450); RBC Distribution Width CV 11.9 % (11.6-14.6); RBC Distribution Width SD 41.5 fl (35.1-43.9); Red Blood Count 4.09 M/mm3 (4.6-6.2)
[2022-11-30 18:35] LABS: ALB/GLOB Ratio 1.2 RATIO (0.9-2.4); AST(SGOT) 15 U/L (15-37); Alanine Aminotransfer ALT/SGPT 25 U/L (16-61); Albumin, Serum 3.7 g/dL (3.2-5.0); Alkaline Phosphatase 61 U/L (45-117); Anion Gap 8 (5-15); BUN 13 mg/dL (7-18); BUN/Creat Ratio 13.1 RATIO (10-20); Calcium,Total 9.2 mg/dL (8.5-10.1); Chloride 102 mmol/L (98-107); Cholesterol 220 mg/dL (200); Creatinine, Serum 0.99 mg/dL (0.70-1.30); EST Glomerular Filtration Rate 83 mL/min (>60); Est Glom Filt Rate - Afr Amer 100 mL/min (>60); Globulin 3.1 g/dL (2.2-4.2); Glucose 112 mg/dL (74-106); High Density Lipoprotein 80 mg/dL; Potassium 3.7 mmol/L (3.5-5.1); Protein, Total 6.8 g/dL (6.4-8.2); Sodium Level 137 mmol/L (136-145); Thyroid Stim Hormone (TSH) 1.28 uIU/mL (0.358-3.74)
[2022-11-30 19:05] LABS: Microalbumin,Random Urine 11.6 mg/L (NO RANGE EST.); Microalbumin:Creatinine Ratio 6.5 mg/g CRE (<30 mg/g CRE)
[2022-11-30 19:19] LABS: Osmolality, Urine 668 mOsm/KG
[2022-11-30 19:20] LABS: Osmolality, Serum 297 mOsm/KG (275-295)
== END | disposition home or self-care (01) ==
LOC: MFPLAB 15:59
PROVIDERS: PCP Family Medicine; Visit Provider Family Medicine
DX: R35.1 Nocturia (principal); G40.109 Localization-related (focal) (partial) symptomatic epilepsy and epileptic syndromes with simple partial seizures, not intractable, without status epilepticus; E78.00 Pure hypercholesterolemia, unspecified; I10 Essential (primary) hypertension
CPT/HCPCS: 36415; 80053; 82043; 82465; 82570; 83718; 83930; 83935; 84443; 85025

== ENCOUNTER → 2023-05-04 | Outpatient (CLI) | payer OTHER, SELFPAY ==
[2023-05-04 18:19] LABS: Absolute Lymphocyte Count 1.24 X10^3/uL (0.83-4.51); Absolute Neutrophil Count 3.5 X10^3/uL (2.0-7.7); Basophil# 0.04 X10^3/uL; Basophil% 0.7 % (0-1); Eosinophil# 0.14 X10^3/uL; Eosinophils% 2.5 % (0-5); Hematocrit 39.6 % (40-54); Hemoglobin 13.7 g/dL (13.0-16.5); Lymphocyte # 1.24 X10^3/ul (0.83-4.51); Lymphocyte % 22.5 % (19-41); Mean Corp Hgb Conc 34.6 g/dL (32-36); Mean Corpuscular Hgb 32.5 pg (27.0-32.0); Mean Corpuscular Volume 94.1 fL (80-94); Mean Platelet Vol. 10.3 fl (6.2-12.0); Monocyte# 0.53 X10^3/uL; Monocyte% 9.6 % (0-10); NRBC Flagged by Analyzer 0 % (0-5); Neutrophil # 3.53 X10^3/uL (2.7-7.7); Neutrophil % 64.3 % (47-70); Platelet Count 226 K/mm3 (150-450); RBC Distribution Width CV 12.1 % (11.6-14.6); RBC Distribution Width SD 41.2 fl (35.1-43.9); Red Blood Count 4.21 M/mm3 (4.6-6.2); White Blood Count 5.5 K/mm3 (4.4-11.0)
[2023-05-04 18:36] LABS: Vitamin B12 1387 pg/mL (211-911)
[2023-05-04 18:52] LABS: Erythrocyte Sedimentation Rate 9 mm/hr (0-20)
[2023-05-04 19:30] LABS: ALB/GLOB Ratio 1.2 RATIO (0.9-2.4); AST(SGOT) 22 U/L (15-37); Alanine Aminotransfer ALT/SGPT 34 U/L (16-61); Albumin, Serum 3.8 g/dL (3.2-5.0); Alkaline Phosphatase 62 U/L (45-117); Anion Gap 8 (5-15); BUN 15 mg/dL (7-18); BUN/Creat Ratio 13.6 RATIO (10-20); Calcium,Total 9.2 mg/dL (8.5-10.1); Chloride 103 mmol/L (98-107); EST Glomerular Filtration Rate 73 mL/min (>60); Est Glom Filt Rate - Afr Amer 89 mL/min (>60); Ferritin 75 ng/mL (26-388); Globulin 3.1 g/dL (2.2-4.2); Glucose 93 mg/dL (74-106); Potassium 3.5 mmol/L (3.5-5.1); Protein, Total 6.9 g/dL (6.4-8.2); Sodium Level 137 mmol/L (136-145); Thyroid Stim Hormone (TSH) 1.54 uIU/mL (0.358-3.74)
[2023-05-06 14:10] LABS: ANTINUCLEAR ANTIBODIES DIRECT Negative (Negative)
[2023-05-11 12:19] LABS: Arsenic 7245 1 ug/L (0-9); Lead, Blood < 1.0 ug/dL (0.0-3.4); Mercury, Blood 85324 < 1.0 ug/L (0.0-14.9); Testosterone, % Free 1.92 % (1.50-4.20); Testosterone, Free 3.05 ng/dL (5.00-21.00); Testosterone, Total 159 ng/dL (264-916)
== END | disposition home or self-care (01) ==
LOC: MTLAB 15:40
PROVIDERS: PCP Family Medicine; Referring Provider Family Medicine; Visit Provider Family Medicine
DX: R53.83 Other fatigue (principal)
CPT/HCPCS: 36415; 80053; 82175; 82607; 82728; 82746; 83655; 83825; 84402; 84403; 84443; 85025; 85652; 86038

== ENCOUNTER → 2023-05-17 | Outpatient (CLI) | payer OTHER, SELFPAY ==
--- NOTE | 2023-05-17 09:26 | STE_ITS ---
Reason For Study: Dyspnea Stress Results Protocol: Bob Protocol Maximum Predicted HR: 163 bpm Target HR: 139 bpm % Maximum Predicted HR: 85 % DurationHeart Rate Stage (mm:ss) (bpm) BP Comment Baseline 67 138/78No Chest Pain Bob Protocol Stage I 3:00 106 150/84No Chest Pain Bob Protocol Stage II 3:00 112 164/78No Chest Pain Bob Protocol Stage III 3:00 121 168/72No Chest Pain; Mild Leg Discomfort Bob Protocol Stage IV 3:00 139 180/74No Chest Pain; Mild Dyspnea Recovery 84 140/72No Chest Pain Stress Duration: 12:00 mm:ss Maximum Stress HR: 139 bpm METS: 13 Baseline Echocardiogram Findings Stress Echo Wall motion Data Resting WM Intermediate WM Stress WM ECHO/Stress Test Echo w/o Contrast Interpretation Summary Exercise stress echo. 58-year-old man with a history of hypertension hyperlipidemia and family histor y. Resting EKG demonstrates normal sinus rhythm with a rate of 67 bpm normal inter vals are noted resting blood pressure is 138/78 mmHg. The patient exercised according to the r egular Bob protocol for total duration of 12 minutes completing stage IV of the Bob protocol the maximum heart rate attained was 144 bpm which was 88% of maximum predicted heart rate the maximum workload was 13.7 metabolic equivalents. At rest there were no ST and T wave changes noted sugges t ischemia and at peak exercise nonspecific ST changes were noted which did not meet the criteria for ischemia. No clinical angina was noted the test was terminated due to attainment of target h eart rate. The peak blood pressure was 212/70 which was a good blood pressure response to exercise with a rate-pressure product of 25,020. Stress echocardiogram. Resting an echo stress echocardiographic images were obt ained at rest and with peak exercise. There was mild aortic valve calcification noted the estimat ed ejection fraction at rest was 55%. At peak exercise there was thickening of all gooden and reducti on of the left ventricular cavity size peaking at 65% no wall motion abnormalities were presen t. Conclusion: Normal exercise stress echocardiogram with no evidence of ischemia at a high wo rkload. Ordering Physician: Reyes Muñoz Referring Physician: Reyes Muñoz Performed By: Carolina Vaughan RDCS
== END | disposition home or self-care (01) ==
PROVIDERS: PCP Family Medicine; Referring Provider Family Medicine; Visit Provider Family Medicine
DX: R06.09 Other forms of dyspnea (principal)
CPT/HCPCS: 93017; 93350

== ENCOUNTER → 2023-05-27 | Outpatient (CLI) | payer OTHER, SELFPAY ==
--- NOTE | 2023-05-27 10:06 | PFT ---
INTRODUCTION: The patient is a 58-year-old male who presents for pulmonary function studies secondary to a diagnosis of dyspnea. Respiratory therapy reported good patient effort. Bronchodilators were used during testing. INTERPRETATION: Forced expiration spirometry demonstrates no evidence of a large airways obstructive ventilatory defect. There was no significant response to aerosolized bronchodilators. Spirograms are of good quality and plateau normally. The respiratory flow-volume loop is normal. Body plethysmography was performed and revealed lung volumes to be within normal limits. Diffusing capacity by single breath CO is also within normal limits. IMPRESSION: Grossly normal pulmonary function studies.
== END | disposition home or self-care (01) ==
PROVIDERS: PCP Family Medicine; Referring Provider Family Medicine; Visit Provider Family Medicine
DX: R06.09 Other forms of dyspnea (principal)
CPT/HCPCS: 94060; 94726; 94729

== ENCOUNTER → 2023-05-31 | Outpatient (CLI) | payer OTHER, SELFPAY ==
[2023-06-05 18:07] LABS: Testosterone, % Free 2.33 % (1.50-4.20); Testosterone, Total 159 ng/dL (264-916)
== END | disposition home or self-care (01) ==
LOC: MTLAB 07:03
PROVIDERS: PCP Family Medicine; Referring Provider Family Medicine; Visit Provider Family Medicine
DX: R79.89 Other specified abnormal findings of blood chemistry (principal)
CPT/HCPCS: 36415; 84402; 84403

== ENCOUNTER → 2023-06-16 | Outpatient (CLI) | payer OTHER, SELFPAY | END | disposition home or self-care (01) | PROVIDERS: PCP Family Medicine; Referring Provider Family Medicine; Visit Provider Family Medicine | DX: R53.83 Other fatigue (principal) | CPT/HCPCS: 36415 ==

== ENCOUNTER → 2023-07-23 | Outpatient (CLI) | payer OTHER, SELFPAY | END | disposition home or self-care (01) | PROVIDERS: PCP Family Medicine; Referring Provider Family Medicine; Visit Provider Family Medicine | DX: R79.89 Other specified abnormal findings of blood chemistry (principal) | CPT/HCPCS: 36415; 84403 ==

== ENCOUNTER → 2023-09-15 | Outpatient (CLI) | payer OTHER, SELFPAY ==
[2023-09-18 16:09] LABS: Testosterone Free 3.8 pg/mL (7.2-24.0)
== END | disposition home or self-care (01) ==
LOC: MTLAB 08:42
PROVIDERS: PCP Family Medicine; Referring Provider Family Medicine; Visit Provider Family Medicine
DX: R79.89 Other specified abnormal findings of blood chemistry (principal)
CPT/HCPCS: 36415; 84402

== ENCOUNTER → 2024-07-21 | Outpatient (CLI) | payer OTHER, SELFPAY ==
[2024-07-21 10:26] LABS: Absolute Lymphocyte Count 0.92 X10^3/uL (0.83-4.51); Absolute Neutrophil Count 2.1 X10^3/uL (2.0-7.7); Basophil# 0.03 X10^3/uL; Basophil% 0.9 % (0-1); Eosinophil# 0.08 X10^3/uL; Eosinophils% 2.3 % (0-5); Hemoglobin 14.3 g/dL (13.0-16.5); Lymphocyte # 0.92 X10^3/ul (0.83-4.51); Lymphocyte % 26.6 % (19-41); Mean Corpuscular Hgb 32.4 pg (27.0-32.0); Mean Platelet Vol. 9.5 fl (6.2-12.0); Monocyte# 0.35 X10^3/uL; Monocyte% 10.1 % (0-10); NRBC Flagged by Analyzer 0 % (0-5); Neutrophil # 2.06 X10^3/uL (2.7-7.7); Neutrophil % 59.5 % (47-70); Platelet Count 227 K/mm3 (150-450); RBC Distribution Width CV 12.4 % (11.6-14.6); RBC Distribution Width SD 43.2 fl (35.1-43.9); Red Blood Count 4.42 M/mm3 (4.6-6.2); White Blood Count 3.5 K/mm3 (4.4-11.0)
[2024-07-21 10:44] LABS: ALB/GLOB Ratio 1.1 RATIO (0.9-2.4); AST(SGOT) 23 U/L (15-37); Alanine Aminotransfer ALT/SGPT 26 U/L (16-61); Alkaline Phosphatase 61 U/L (45-117); Anion Gap 5 (5-15); BUN 9 mg/dL (7-18); BUN/Creat Ratio 10.5 RATIO (10-20); Chloride 100 mmol/L (98-107); Creatinine, Serum 0.85 mg/dL (0.70-1.30); EST Glomerular Filtration Rate 98 mL/min (>60); Est Glom Filt Rate - Afr Amer 118 mL/min (>60); Globulin 3.5 g/dL (2.2-4.2); Glucose 100 mg/dL (74-106); PSA,Total - Annual Screen 0.35 ng/mL (0.00-4.00); Potassium 3.8 mmol/L (3.5-5.1); Protein, Total 7.5 g/dL (6.4-8.2); Sodium Level 134 mmol/L (136-145)
[2024-07-21 11:01] LABS: Microalbumin,Random Urine 13.3 mg/L (NO RANGE EST.); Microalbumin:Creatinine Ratio 13.4 mg/g CRE (<30 mg/g CRE)
== END | disposition home or self-care (01) ==
LOC: MTLAB 08:23
PROVIDERS: PCP Family Medicine; Referring Provider Family Medicine; Visit Provider Family Medicine
DX: G40.109 Localization-related (focal) (partial) symptomatic epilepsy and epileptic syndromes with simple partial seizures, not intractable, without status epilepticus (principal); I10 Essential (primary) hypertension; Z12.5 Encounter for screening for malignant neoplasm of prostate
CPT/HCPCS: 36415; 80053; 82043; 82140; 82542; 82570; 84153; 85025; G0103

== ENCOUNTER 2025-03-29 14:23 | Emergency (ER) | payer OTHER, SELFPAY ==
[2025-03-29 14:25] VITALS: BP 160/95; PULSE 93; RESP 16; TEMP 36.9; O2SAT 97; BMI 29.0
--- NOTE | 2025-03-29 14:41 | ED.RN ---
PT IS MEDICATED FOR ABSENT SEIZURES, PT HAS HAD 3 SEIZURES EACH DAY FOR THE LAST 3 DAYS.LAST ONE WAS APROX AN HOUR AGO.
--- NOTE | 2025-03-29 15:03 | EX.ED.DYSGE1 ---
HPI History of Present Illness Chief Complaint: Seizure Informant: patient Onset/Context/Timing Onset: Days (3) Context: Sudden Onset Timing: Intermittent Quality: Zoned out Location: Generalized Worsened by: Nothing Relieved by: Nothing Narrative Narrative: Patient presents with 3 seizures per day for the last 3 days. Patient states his seizures are generalized but are absence type. Patient states he zones out for few minutes. Patient states he feels weak all over after that. Patient states nothing makes it better nothing makes it worse. Patient is on lamotrigine for his seizures. Patient states he has been compliant with this. Patient denies any loss of bowel or bladder control. Patient admits to a mild headache. Patient states it is mainly over the right temporal area. Patient states his pain radiates into his neck. [facility] Medical History Wears glasses Depression Alcohol use Marijuana use Prostate disease High cholesterol Back pain Seizures History of ulceration Heartburn Smoker History of pain when walking Cardiology follow-up encounter Essential (primary) hypertension GERD (gastroesophageal reflux disease) Smoker Chest pain Hypertension Depression Seizure disorder Home Medications ?Medication ?Instructions ?Recorded ?Last Taken ?Type ezetimibe 10 mg tablet 10 mg PO DAILY cholesterol 02/22/17 04/06/21 History lamotrigine 100 mg tablet 275 mg PO BID seizure 02/22/17 04/07/21 History (Lamictal) simvastatin 40 mg tablet 40 mg PO QHS cholesterol 02/22/17 04/06/21 History aspirin 81 mg tablet,delayed 81 mg PO QODAY health maintenance 04/07/21 04/06/21 History release Held on 05/14/21. Instructions: Resume on 05/28/21. losartan 50 mg-hydrochlorothiazide 1 tab PO DAILY blood pressure 04/07/21 04/07/21 History 12.5 mg tablet Allergy/AdvReac Type Severity Reaction Status Date / Time No Known Allergies Allergy Verified 03/29/25 14:27 Family History Father CAD (coronary artery disease) Other Heart disease Surgical History Hx of colonoscopy Hx of hernia repair History of left heart catheterization (04/08/21) History of herniorrhaphy Social History household members: significant other history of recent travel: No sexually active: Yes Smoking Status: Current every day smoker tobacco type: cigarettes alcohol intake: current alcohol intake frequency: a few times a month ROS ROS ED Constitutional Constitutional ED: Denies chills or fever(s) Eyes Eyes: Denies blurry vision or change in vision ENT ENT ED: Denies rhinorrhea or sore throat Cardiovascular Cardiovascular: Denies chest pain or palpitations Respiratory/Chest Respiratory/Chest: Denies cough or dyspnea Gastrointestinal Gastrointestinal: Denies nausea or vomiting Genitourinary Genitourinary ED: Denies dysuria or hematuria Musculoskeletal Musculoskeletal: Reports neck pain; Denies back pain Integumentary Denies abscess or rash Neurologic Neurologic: Reports headache(s); Denies weakness Allergic/Immunologic Allergic/Immunologic ED: Denies mouth swelling or urticaria EXAM Physical Exam Const Vital Signs: 03/29/25 14:25 03/29/25 16:24 03/29/25 17:09 Temperature 98.4 F Temperature Source Oral Pulse Rate 93 68 61 Respiratory Rate 16 16 16 Blood Pressure 160/95 H 129/81 H 145/85 H Blood Pressure Mean 116 97 105 Pulse Ox 97 100 98 Oxygen Delivery Method Room Air Room Air Room Air 03/29/25 17:51 Temperature 0 F L Temperature Source Pulse Rate 63 Respiratory Rate 22 H Blood Pressure 150/76 H Blood Pressure Mean 100 Pulse Ox 97 Oxygen Delivery Method Positive well nourished and well developed General Appearance ED: well developed and NAD HEENT Reports moist mucous membranes HEENT Narrative: There is mild tenderness of the right temporal artery. Neck supple and no JVD Neck Narrative: There are no carotid bruits auscultated. Resp normal respiratory effort and clear to auscultation bilaterally Cardio regular rate and regular rhythm GI non-tender and non-distended Palpation: soft Extremity normal to inspection General Extremety ED: Negative for edema or tenderness General Extremity: Negative for edema Neuro oriented x3, CN's II-XII intact bilaterally and no sensory deficits noted Sensorium / Orientation: alert Motor Exam: strength 5/5 throughout Psych mental status grossly normal Skin no rashes or lesions noted MDM MDM MDM Narrative Medical decision making narrative: Differential diagnosis includes breakthrough seizure, electrolyte abnormality, intracranial bleeding, mass, dehydration, medication noncompliance. CBC will be obtained to assess for leukocytosis and anemia. Comprehensive metabolic profile will be obtained to assess for electrolyte abnormality and renal function. Lamotrigine level will be obtained to assess for medication compliance. CT scan of the brain will be obtained to assess for intracranial bleeding and mass. Lab Data Attestation: I reviewed the patient's lab results. Lab results narrative: CBC was reviewed and was within normal limits. Comprehensive metabolic profile was reviewed and was within normal limits. Labs: Laboratory Results - last 24 hr 03/29/25 14:42 WBC 5.9 RBC 4.07 L Hgb 13.5 Hct 37.4 L MCV 91.9 MCH 33.2 H MCHC 36.1 H RDW Std Deviation 39.8 RDW Coeff of [place] 11.9 Plt Count 283 MPV 9.8 Immature Gran % (Auto) 0.500 Neut % (Auto) 74.7 H Lymph % (Auto) 16.6 L Oliver % (Auto) 6.1 Eos % (Auto) 1.4 Baso % (Auto) 0.7 Absolute Neuts (auto) 4.4 Absolute Lymphs (auto) 0.98 Nucleated RBC % 0 Sodium 133 Potassium 3.5 Chloride 97 L Carbon Dioxide 22.4 Anion Gap 14 BUN 11 Creatinine 0.89 Estim Creat Clear Calc 114.22 Est GFR (MDRD) Non-Af 99 BUN/Creatinine Ratio 12.2 Glucose 113 H Calcium 9.5 Total Bilirubin 0.48 AST 22 ALT 15 Alkaline Phosphatase 60 Total Protein 7.2 Albumin 4.5 Globulin 2.7 Albumin/Globulin Ratio 1.6 Radiography Diagnostic Testing: Clinical Impression(s) from Imaging Studies Brain CT 03/29/25 15:12 IMPRESSION: NO ACUTE FINDINGS Reading Location: [facility]1 CT scan of the brain was obtained. There is no acute intracranial abnormality. This was interpreted by the radiologist and was also independently reviewed by myself. Treatment and Re-Evaluation :: Patient did not want to wait for all of his results. Patient signed out AGAINST MEDICAL ADVICE. Patient was instructed to return if worse in any way. Patient was instructed to follow-up with his primary care physician and neurologist for his lamotrigine level. Patient was instructed to return if any further seizure activity. Discharge Plan Triage Chief Complaint: Seizure ED Provider: Reyes Leon Dx/Rx/DC Orders Clinical Impression: Breakthrough seizure, Essential (primary) hypertension Instructions: ED Seizure, Recurrent (Adult) Prescriptions: No Action simvastatin 40 MG tablet 40 mg PO QHS lamotrigine [Lamictal] 100 MG tablet 275 mg PO BID ezetimibe 10 MG tablet 10 mg PO DAILY losartan-hydrochlorothiazide 50-12.5 mg tablet 1 tab PO DAILY Patient Comments: TAKE 1 TABLET BY MOUTH EVERY DAY aspirin 81 mg Tablet,Delayed Release (Dr/Ec) 81 mg PO QODAY Primary Care Provider: Reyes Muñoz Referrals: Reyes Muñoz MD [Primary Care Provider] - 3-5 Days Print Language: Armenian Disposition Disposition: Against Medical Advice Discharge Date/Time: 03/29/25 17:52
--- NOTE | 2025-03-29 15:12 | CT_ITS ---
PROCEDURE: BRAIN/HEAD WITHOUT CONTRAST 03/29/2025 REASON FOR EXAM: SEIZURE TECHNIQUE: Head CT without intravenous contrast. Coronal and Sagittal reconstruction series were provided. One or more dose reduction techniques were used (e.g., Automated exposure control, adjustment of the mA and/or kV according to patient size, use of iterative reconstruction technique. RADIATION DOSE SUMMARY: CTDlvol: 44.99 mGy DLP: 812.98 mGycm COMPARISON: None FINDINGS: Brain: Within normal limits for age CSF Spaces: Mild generalized cerebral atrophy Sinuses/Mastoids: Clear at visualized levels Bones: CT/Brain/Head without Contrast IMPRESSION: NO ACUTE FINDINGS Reading Location: [place] [address]
[2025-03-29 15:23] LABS: Absolute Lymphocyte Count 0.98 X10^3/uL (0.83-4.51); Absolute Neutrophil Count 4.4 X10^3/uL (2.0-7.7); Basophil# 0.04 X10^3/uL; Basophil% 0.7 % (0-1); Eosinophil# 0.08 X10^3/uL; Eosinophils% 1.4 % (0-5); Hematocrit 37.4 % (40-54); Hemoglobin 13.5 g/dL (13.0-16.5); Lymphocyte # 0.98 X10^3/ul (0.83-4.51); Lymphocyte % 16.6 % (19-41); Mean Corp Hgb Conc 36.1 g/dL (32-36); Mean Corpuscular Hgb 33.2 pg (27.0-32.0); Mean Corpuscular Volume 91.9 fL (80-94); Mean Platelet Vol. 9.8 fl (6.2-12.0); Monocyte# 0.36 X10^3/uL; Monocyte% 6.1 % (0-10); NRBC Flagged by Analyzer 0 % (0-5); Neutrophil % 74.7 % (47-70); Platelet Count 283 K/mm3 (150-450); RBC Distribution Width CV 11.9 % (11.6-14.6); RBC Distribution Width SD 39.8 fl (35.1-43.9); Red Blood Count 4.07 M/mm3 (4.6-6.2); White Blood Count 5.9 K/mm3 (4.4-11.0)
[2025-03-29 16:16] LABS: ALB/GLOB Ratio 1.6 RATIO (0.9-2.4); AST(SGOT) 22 U/L (<=37); Alanine Aminotransfer ALT/SGPT 15 U/L (<=46); Albumin, Serum 4.5 g/dL (3.5-5.0); Alkaline Phosphatase 60 U/L (40-129); Anion Gap 14 (5-15); BUN 11 mg/dL (4-19); BUN/Creat Ratio 12.2 RATIO (10-20); Calcium,Total 9.5 mg/dL (7.6-11.0); Carbon Dioxide 22.4 mmol/L (21.0-32.0); Chloride 97 mmol/L (98-108); Creatinine, Serum 0.89 mg/dL (0.70-1.20); EST Glomerular Filtration Rate 99 (>60); Estimated Creatinine Clearance 114.22 ml/min (50-250); Globulin 2.7 g/dL (2.2-4.2); Glucose 113 mg/dL (70-99); Potassium 3.5 mmol/L (3.3-5.1); Protein, Total 7.2 g/dL (5.9-8.4); Sodium Level 133 mmol/L (133-145); Total Bilirubin 0.48 mg/dL (0.00-1.30)
[2025-03-29 16:24] VITALS: BP 129/81; PULSE 68; RESP 16; O2SAT 100
[2025-03-29 17:09] VITALS: BP 145/85; PULSE 61; RESP 16; O2SAT 98
--- NOTE | 2025-03-29 17:49 | ED.RN ---
Pt stated that he just got a call from work and he has to leave. Per , they have a business to run and they have been here for 4 hours. Pt is waiting on a lab that is a send out to come back. Pt was advised to call neurologist tomorrow morning. Pt stated that he would do that. Pt signed AMA form and IV was taken out.
[2025-03-29 17:51] VITALS: BP 150/76; PULSE 63; RESP 22; TEMP -17.7; TEMP 0; O2SAT 97
== END 2025-03-29 17:52 | disposition left against medical advice (07) ==
LOC: ED 15:11
PROVIDERS: Emergency Provider Emergency Medicine; PCP Family Medicine; Referring Provider Emergency Medicine; Visit Provider Emergency Medicine
DX: G40.909 Epilepsy, unspecified, not intractable, without status epilepticus (principal); R51.9 Headache, unspecified; E78.00 Pure hypercholesterolemia, unspecified; I10 Essential (primary) hypertension; F17.210 Nicotine dependence, cigarettes, uncomplicated; Z79.82 Long term (current) use of aspirin
CPT/HCPCS: 70450; 80053; 82542; 85025; 99282; A4216

== ENCOUNTER → 2025-04-27 | Outpatient (CLI) | payer OTHER, SELFPAY ==
--- NOTE | 2025-04-27 09:00 | RAD_ITS ---
EXAM: XR Right Shoulder Complete, 2 or More Views CLINICAL INDICATION: PAIN TECHNIQUE: Two or more views of the right shoulder. COMPARISON: No relevant prior studies available. FINDINGS: BONES/JOINTS: Mild degenerative changes of the acromioclavicular and glenohumeral joints. No acute fracture. No dislocation. SOFT TISSUES: Unremarkable. RAD/Shoulder min 2 Views IMPRESSION: Degenerative changes as above. Reading Location: [facility]
[2025-04-27 10:41] LABS: Hematocrit 38.4 % (40-54); Hemoglobin 13.5 g/dL (13.0-16.5); Immature Granulocytes Count 0.020 X10^3/uL (0.0-0.0); Mean Corp Hgb Conc 35.2 g/dL (32-36); Mean Corpuscular Volume 93.0 fL (80-94); Mean Platelet Vol. 10.1 fl (6.2-12.0); NRBC Flagged by Analyzer 0 % (0-5); Platelet Count 257 K/mm3 (150-450); RBC Distribution Width CV 11.7 % (11.6-14.6); RBC Distribution Width SD 39.8 fl (35.1-43.9); Red Blood Count 4.13 M/mm3 (4.6-6.2); White Blood Count 6.0 K/mm3 (4.4-11.0)
[2025-04-27 11:45] LABS: AST(SGOT) 20 U/L (<=37); Alanine Aminotransfer ALT/SGPT 16 U/L (<=46); Albumin, Serum 4.5 g/dL (3.5-5.0); Alkaline Phosphatase 61 U/L (40-129); Anion Gap 11 (5-15); BUN 9 mg/dL (4-19); BUN/Creat Ratio 10.2 RATIO (10-20); Calcium,Total 9.5 mg/dL (7.6-11.0); Carbon Dioxide 26.4 mmol/L (21.0-32.0); Chloride 96 mmol/L (98-108); Cholesterol 215 mg/dL (<=200); Globulin 2.5 g/dL (2.2-4.2); Glucose 100 mg/dL (70-99); Low Density Lipoprotein Calc. 120 mg/dL; Magnesium 1.9 mg/dL (1.5-2.2); Potassium 4.0 mmol/L (3.3-5.1); Triglycerides 69 mg/dL; Very Low Density Lipoprotein 14 mg/dL (5-40); cholesterol:hdl ratio screen 2.63
== END | disposition home or self-care (01) ==
LOC: MTLAB 08:57
PROVIDERS: PCP Family Medicine; Referring Provider Family Medicine; Visit Provider Family Medicine
DX: M25.511 Pain in right shoulder (principal); R73.09 Other abnormal glucose; I10 Essential (primary) hypertension
CPT/HCPCS: 36415; 73030; 80053; 80061; 83036; 83735; 84443; 85025

== ENCOUNTER → 2025-05-18 | Outpatient (CLI) | payer OTHER, SELFPAY ==
[2025-05-18 11:38] LABS: CRP < 3.00 mg/L (0.0-3.0)
== END | disposition home or self-care (01) ==
LOC: MFPLAB 08:41
PROVIDERS: Family Medicine; PCP Family Medicine; Visit Provider Family Medicine
DX: M79.601 Pain in right arm (principal); Z12.5 Encounter for screening for malignant neoplasm of prostate; R73.09 Other abnormal glucose
CPT/HCPCS: 36415; 83036; 84443; 85652; 86140

== ENCOUNTER → 2025-07-04 | Outpatient (CLI) | payer OTHER, SELFPAY ==
--- NOTE | 2025-07-04 14:50 | CT_ITS ---
PROCEDURE: SOFT TISSUE NECK WITH CONTRAST 07/04/2025 REASON FOR EXAM: RIGHT NECK PAIN, RIGHT NECK FULLNESS, VOICE CHANGES TECHNIQUE: Procedure Code: CTNEW Modality: CT Procedure: SOFT TISSUE NECK WITH CONTRAST CONTRAST: Isovue 370 VOLUME: 75 mL One or more dose reduction techniques were used (e.g., Automated exposure control, adjustment of the mA and/or kV according to patient size, use of iterative reconstruction technique). RADIATION DOSE SUMMARY: CTDlvol: 17.06 mGy DLP: 549.74 mGycm COMPARISON: CT cervical spine 10/26/2018. FINDINGS: Airway: The naso pharynx is unremarkable. Asymmetric prominence of the lateral left posterior wall of the oropharynx, similar to CT cervical spine 10/26/2018. The supraglottis, glottis and infraglottic are unremarkable. Limited evaluation due to streak artifact from dental work. Salivary glands: Unremarkable. Lymph nodes: No lymphadenopathy. Thyroid: Unremarkable. Vasculature: Atherosclerotic calcifications of the carotid bulbs. Orbits: Unremarkable. Paranasal sinuses and mastoids: Clear. Lung apices: Clear. Upper mediastinum: Unremarkable. Bones: No acute bony abnormalities. CT/Soft Tissue Neck WITH Contrast IMPRESSION: Asymmetric prominence of the posterolateral left oropharynx wall. This finding is similar to CT scan cervical spine 10/26/2018 and can be due to retropharyngeal left internal carotid artery. Direct visuali zation is recommended to rule out mucosal lesion. Otherwise, no lymphadenopathy or other acute neck abnormalities. Reading Location: [id number]
== END | disposition home or self-care (01) ==
LOC: CT 14:48
PROVIDERS: PCP Family Medicine; Referring Provider Family Medicine; Visit Provider Family Medicine
DX: M54.2 Cervicalgia (principal); F17.200 Nicotine dependence, unspecified, uncomplicated
CPT/HCPCS: 70491; Q9967

== ENCOUNTER → 2025-07-17 | Outpatient (CLI) | payer OTHER, SELFPAY ==
--- OUTSIDE RECORDS SUMMARY | 2025-04-06 10:58 | XMS RPT_ITS ---
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, unspecified epilepsy type (HCC) / G40.909(ICD-10) DEMETRA DE LEÓN Active [facility] 02/12/2025 Active Paresthesia / R20.2(ICD-10) DEMETRA DE LEÓN Active [facility] 02/12/2025 Active Alcohol abuse / F10.10(ICD-10) DEMETRA DE LEÓN Active [facility] PROCEDURES No Procedure Records Found RESULTS CNPN Observed: 04/10/2025 12:00 AM Status: COMPLETED Source: [facility] Telephone (NEADMN) KESHAWN DIAZ ([id number]) 1965 M Date Time Provider Department 04/10/25 DEMETRA DE LEÓN During your visit today, we recorded the following information about you: Rex Diggs 04/10/2025 10:04 AM Signed Type of record received: Office Visit Notes and Other Records received from: [facility] Records received via: Faxed Records scanned into New [employer] MD: Yes Records have been forwarded to: Dr. De León Allergies As of Date: 04/10/2025 (No Known Allergies) Date Reviewed: 04/06/2025 Reviewed by: Deb Saleh MA - Fully Assessed Reason for Visit: Received Outside Medical Records [[id number]] Prescriptions as of 04/18/2025 - lamoTRIgine (LAMICTAL) 200 mg tablet Take 1 tablet by mouth two times a day. Take with 25 mg pill for 225 mg twice a day - lamoTRIgine (LAMICTAL) 25 mg tablet Take 1 tablet by mouth two times a day. Take with 200 mg pill for total of 225 mg twice a day. - thiamine (VITAMIN B-1) 100 mg tablet Take 100 mg by mouth two times a day. - ALPHA LIPOIC ACID ORAL Take by mouth. - pravastatin (PRAVACHOL) 80 mg tablet - finasteride (PROSCAR) 5 mg tablet - famotidine (PEPCID) 10 mg tablet Take 10 mg by mouth twice daily. - cyanocobalamin, vitamin B-12, (VITAMIN B-12 ORAL) Take by mouth. - losartan-hydroCHLOROthiazide (HYZAAR) 50-12.5 mg per tablet Take 1 tablet by mouth once daily. - DULoxetine (CYMBALTA) 60 mg capsule duloxetine 60 mg capsule,delayed release TAKE 1 CAPSULE BY MOUTH EVERY DAY - aspirin, enteric coated (ASPIRIN, ENTERIC COATED) 81 mg EC tablet Take 81 mg by mouth once daily. Takes about 3-4 times per week. - ezetimibe (ZETIA) 10 mg tablet Take 10 mg by mouth once daily. - tamsulosin ER (FLOMAX) 0.4 mg cp24 Take 0.4 mg by mouth once daily. Problem List As Of Date: 04/10/2025 (None) Encounter Status:Closed by REX DIGGS on 04/18/25 CNOV Observed: 04/06/2025 11:30 AM Status: COMPLETED Source: [facility] Office Visit ([facility]) KESHAWN DIAZ ([id number]) 1965 M Date Time Provider Department 04/06/25 11:30 AM DEMETRA DE LEÓN [facility] During your visit today, we recorded the following information about you: Pulse Blood pressure Weight Height 77/minute 123/76 101.9 kg 1.854 m Demetra De León MD 04/06/2025 2:50 PM Signed FOLLOW UP NOTE Subjective Keshawn Diaz is a 59 year old male who presents for follow up. CC: Epilepsy Summary of prior care: 10/2021 Ambidextrous male with a history of previously diagnosed neuropathy, alcohol abuse, and epilepsy who presents for evaluation of neuropathy. His examination demonstrates normal sensation and reflexes. We discussed his presentation. Previous diagnosis of neuropathy though his symptoms are very wide spread, even including head, which would be unusual for neuropathy. Normal reflexes and sensation on exam also might point away from this. Don't have outside EMG, would suggest repeating to see if signs of neuropathy, and if normal, may consider biopsy as Dr. Ross had suggested. Extensive neuropathy work up neg, could be related to alcohol abuse, suggested slowly decreasing his alcohol use. Suggested B1 supplementation with alcohol abuse. His LTG dose is a little unusual, 200 AM 275 PM, suggested changing to 225 mg BID for ease and consistency. 01/2022 EMG normal low concern neuropathy, no changes. 02/2023 refer to epilepsy, decrease etoh. 08/2023 no sz with med compliance, decrease etoh, see epilepsy if further seizures. 02/2024 stop B6, decrease etoh HPI Current Issues - Had 8 seizures [id number]. Complex partial, sometimes might feel it coming on but hard to describe the feeling. Lasts maybe 15 seconds not completely sure. Can get sweaty feeling. Afterwards tired. - No missed doses of medication - Had been drinking a couple mixed drinks and NA beer for a couple weeks before not suddenly reduced. However on further questioning, a normal mixed drink would be vodka and Kahlua - estimates 3 shots vodka and 1 shot Kahlua. Middle of last week right before this started he changed to NA vodka (so dropped 6 shots a day of vodka) - Generally has a hard time sleeping - Started taking a nitric oxide booster Onset: ~30s Semiology: See above Frequency: None recent Triggers: Sudden alcohol reduction Current AEDs: LTG Adverse effects: n/a Prior AEDs: LEV (unknown outcome), OXC 600 mg ER daily, possibly others not completely sure Prior neurologists: Dr. Ross, Dr. Min, [facility] Dr. Estevez Epilepsy risk factors: (-) Pre-term (-) Complications (-) Developmental Delay (-) Febrile Seizure (-) [employer] Infections (-) Family history of epilepsy (+/-) Traumatic Brain Injury - hit head water skiing, fell in garage and hit head on concrete (-) Stroke (-) Brain Tumor (+) Substance abuse - alcohol Current Outpatient Medications Medication Sig Dispense Refill lamoTRIgine (LAMICTAL) 200 mg tablet Take 1 tablet by mouth two times a day. Take with 25 mg pill for 225 mg twice a day 180 tablet 3 lamoTRIgine (LAMICTAL) 25 mg tablet Take 1 tablet by mouth two times a day. Take with 200 mg pill for total of 225 mg twice a day. 180 tablet 3 thiamine (VITAMIN B-1) 100 mg tablet Take 100 mg by mouth two times a day. ALPHA LIPOIC ACID ORAL Take by mouth. pravastatin (PRAVACHOL) 80 mg tablet finasteride (PROSCAR) 5 mg tablet famotidine (PEPCID) 10 mg tablet Take 10 mg by mouth twice daily. cyanocobalamin, vitamin B-12, (VITAMIN B-12 ORAL) Take by mouth. losartan-hydroCHLOROthiazide (HYZAAR) 50-12.5 mg per tablet Take 1 tablet by mouth once daily. DULoxetine (CYMBALTA) 60 mg capsule duloxetine 60 mg capsule,delayed release TAKE 1 CAPSULE BY MOUTH EVERY DAY aspirin, enteric coated (ASPIRIN, ENTERIC COATED) 81 mg EC tablet Take 81 mg by mouth once daily. Takes about 3-4 times per week. ezetimibe (ZETIA) 10 mg tablet Take 10 mg by mouth once daily. tamsulosin ER (FLOMAX) 0.4 mg cp24 Take 0.4 mg by mouth once daily. No current facility-administered medications for this visit. REVIEW OF SYSTEMS His ROS was positive for that mentioned in the HPI. Otherwise a 10-point ROS was completed and was negative. Objective OBJECTIVE 04/06/25 1104 BP: 123/76 BP Site: Right Arm BP Position: Sitting BP Cuff Size: Large Adult Pulse: 77 Weight: 101.9 kg (224 lb 10.4 oz) Height: 185.4 cm (6' 1) General: General Appearance: Well appearing, alert, in no acute distress, well-hydrated, well nourished. Head: Normocephalic Neck: Supple Heart: RRR Neurologic Exam: Mental Status: He is alert. He is fully oriented. Attention is intact. Memory is intact. Language shows normal comprehension and fluency. Affect is appropriate. Cranial Nerves: Extraocular movements show full and smooth pursuits. No nystagmus. Visual velez are full to confrontation. Facial activation is symmetric. Hearing is intact to conversation. There is no hypomimia. There is no hypophonia. There is no dysarthria. Tongue is midline. Palate elevates symmetrically. Shoulder shrug is normal. Motor: Muscle bulk is normal. Rapid alternating movements are normal. Muscle power is full. Coordination: Finger to nose is smooth without ataxia. Gait/station: Normal DATA REVIEW Actual films/image/tracing reviewed and summarized as follows: n/a Old records reviewed and summarized as follows: Long EEG 05/11/18 normal MRI Brain 2205 read is normal EMG/NCS 11/17/21 normal, decreased activation Reviewed previous neuro records from Dr. Ross - paresthesias over various parts of his body, mentions OSH EMG with mild sensory neuropathy of LE c/w small fiber neuropathy, suspect tingling from buspar or small fiber neuropathy. Plan for labs and decrease buspar. At follow up suspected sensory neuropathy, increase LTG, additional labs, rec etoh cessation. Extensive neuropathy labs normal (B12, B1, MMA, TSH, A1c, SPEP, ESR, CRP, CMP, CBC, UPEP, celiac screen, ganglioside Abs, monoclonal protein, HIV, syph, CAITLYN, cryoglobulin, Hep panel) Assessment/Plan ASSESSMENT AND PLAN: Keshawn Diaz is a 60 year old ambidextrous male with a history of previously diagnosed neuropathy, alcohol abuse, and epilepsy who presents for follow up of seizures. His examination is normal. 1. Epilepsy - 8 seizures last week over a 3 day span after suddenly going from ~8 shots a day to ~2 shots a day - Explained importance of reducing alcohol slowly - Does not need seizure medication adjustment, explained if these were unprovoked would have him follow through on epilepsy referral (on at least 3rd agent), but as likely provoked by alcohol does not need to presently - Continue current dose LTG - Encouraged gradual etoh reduction - With provoked seizures can have shorter period of no driving, explained should not drive for 2 months of seizure freedom 2. Pain / paresthesias - Discussed normal exam and EMG make true neuropathy unlikely - Encouraged alcohol cessation as could cause nerve damage 3. Alcohol abuse - Encouraged gradual cessation as can cause nerve damage, imbalance, and memory impairment - Continue B1 supplement Follow-up: 6 months Risks AND Side Effects of Newly Prescribed Medication, Discussed with Patient: n/a Demetra De León MD [facility] Demetra De León MD 04/06/2025 11:37 AM Signed Lets continue the lamotrigine as is. I think the seizure was related to alcohol withdrawal. For any reductions in alcohol use, do so slowly by lowering by 1 shot / drink equivalent a week. I would recommend not driving for 2 months of being seizure free. Allergies As of Date: 04/06/2025 (No Known Allergies) Date Reviewed: 04/06/2025 Reviewed by: Deb Saleh MA - Fully Assessed Reason for Visit: Recent Seizures [Other] Primary Visit Diagnosis:Nonintractable epilepsy without status epilepticus, unspecified epilepsy type (HCC) [G40.909] Other Visit Diagnoses:Alcohol abuse [F10.10] Alcohol withdrawal seizure without complication (HCC) [F10.930, R56.9] Prescriptions as of 04/06/2025 - lamoTRIgine (LAMICTAL) 200 mg tablet Take 1 tablet by mouth two times a day. Take with 25 mg pill for 225 mg twice a day - lamoTRIgine (LAMICTAL) 25 mg tablet Take 1 tablet by mouth two times a day. Take with 200 mg pill for total of 225 mg twice a day. - thiamine (VITAMIN B-1) 100 mg tablet Take 100 mg by mouth two times a day. - ALPHA LIPOIC ACID ORAL Take by mouth. - pravastatin (PRAVACHOL) 80 mg tablet - finasteride (PROSCAR) 5 mg tablet - famotidine (PEPCID) 10 mg tablet Take 10 mg by mouth twice daily. - cyanocobalamin, vitamin B-12, (VITAMIN B-12 ORAL) Take by mouth. - losartan-hydroCHLOROthiazide (HYZAAR) 50-12.5 mg per tablet Take 1 tablet by mouth once daily. - DULoxetine (CYMBALTA) 60 mg capsule duloxetine 60 mg capsule,delayed release TAKE 1 CAPSULE BY MOUTH EVERY DAY - aspirin, enteric coated (ASPIRIN, ENTERIC COATED) 81 mg EC tablet Take 81 mg by mouth once daily. Takes about 3-4 times per week. - ezetimibe (ZETIA) 10 mg tablet Take 10 mg by mouth once daily. - tamsulosin ER (FLOMAX) 0.4 mg cp24 Take 0.4 mg by mouth once daily. Problem List As Of Date: 04/06/2025 (None) Other instructions from your clinician: Lets continue the lamotrigine as is. I think the seizure was related to alcohol withdrawal. For any reductions in alcohol use, do so slowly by lowering by 1 shot / drink equivalent a week. I would recommend not driving for 2 months of being seizure free. Disposition: Return in about 6 months (around 10/06/2025). Follow-up and Disposition History for Encounter Date Provider Department Center 04/06/2025 [id number], TED [facility] [place] Encounter Status:Closed by DEMETRA DE LEÓN on 04/06/25 PROGRESS Observed: 04/06/2025 11:19 AM Status: COMPLETED Source: [facility] ID: [id number] Author: DEMETRA DE LEÓN MD Service: ? Author Type: Physician Type: Progress Notes Filed: 04/06/2025 14:50 Note Text: FOLLOW UP NOTE Subjective Kesahwn Diaz is a 59 year old male who presents for follow up. CC: Epilepsy Summary of prior care: 10/2021 Ambidextrous male with a history of previously diagnosed neuropathy, alcohol abuse, and epilepsy who presents for evaluation of neuropathy. His examination demonstrates normal sensation and reflexes. We discussed his presentation. Previous diagnosis of neuropathy though his symptoms are very wide spread, even including head, which would be unusual for neuropathy. Normal reflexes and sensation on exam also might point away from this. Don't have outside EMG, would suggest repeating to see if signs of neuropathy, and if normal, may consider biopsy as Dr. Ross had suggested. Extensive neuropathy work up neg, could be related to alcohol abuse, suggested slowly decreasing his alcohol use. Suggested B1 supplementation with alcohol abuse. His LTG dose is a little unusual, 200 AM 275 PM, suggested changing to 225 mg BID for ease and consistency. 01/2022 EMG normal low concern neuropathy, no changes. 02/2023 refer to epilepsy, decrease etoh. 08/2023 no sz with med compliance, decrease etoh, see epilepsy if further seizures. 02/2024 stop B6, decrease etoh HPI Current Issues - Had 8 seizures [id number]. Complex partial, sometimes might feel it coming on but hard to describe the feeling. Lasts maybe 15 seconds not completely sure. Can get sweaty feeling. Afterwards tired. - No missed doses of medication - Had been drinking a couple mixed drinks and NA beer for a couple weeks before not suddenly reduced. However on further questioning, a normal mixed drink would be vodka and Kahlua - estimates 3 shots vodka and 1 shot Kahlua. Middle of last week right before this started he changed to NA vodka (so dropped 6 shots a day of vodka) - Generally has a hard time sleeping - Started taking a nitric oxide booster Onset: ~30s Semiology: See above Frequency: None recent Triggers: Sudden alcohol reduction Current AEDs: LTG Adverse effects: n/a Prior AEDs: LEV (unknown outcome), OXC 600 mg ER daily, possibly others not completely sure Prior neurologists: Dr. Ross, Dr. Min, [facility] Dr. Estevez Epilepsy risk factors: (-) Pre-term (-) Complications (-) Developmental Delay (-) Febrile Seizure (-) [employer] Infections (-) Family history of epilepsy (+/-) Traumatic Brain Injury - hit head water skiing, fell in garage and hit head on concrete (-) Stroke (-) Brain Tumor (+) Substance abuse - alcohol Current Outpatient Medications Medication Sig Dispense Refill lamoTRIgine (LAMICTAL) 200 mg tablet Take 1 tablet by mouth two times a day. Take with 25 mg pill for 225 mg twice a day 180 tablet 3 lamoTRIgine (LAMICTAL) 25 mg tablet Take 1 tablet by mouth two times a day. Take with 200 mg pill for total of 225 mg twice a day. 180 tablet 3 thiamine (VITAMIN B-1) 100 mg tablet Take 100 mg by mouth two times a day. ALPHA LIPOIC ACID ORAL Take by mouth. pravastatin (PRAVACHOL) 80 mg tablet finasteride (PROSCAR) 5 mg tablet famotidine (PEPCID) 10 mg tablet Take 10 mg by mouth twice daily. cyanocobalamin, vitamin B-12, (VITAMIN B-12 ORAL) Take by mouth. losartan-hydroCHLOROthiazide (HYZAAR) 50-12.5 mg per tablet Take 1 tablet by mouth once daily. DULoxetine (CYMBALTA) 60 mg capsule duloxetine 60 mg capsule,delayed release TAKE 1 CAPSULE BY MOUTH EVERY DAY aspirin, enteric coated (ASPIRIN, ENTERIC COATED) 81 mg EC tablet Take 81 mg by mouth once daily. Takes about 3-4 times per week. ezetimibe (ZETIA) 10 mg tablet Take 10 mg by mouth once daily. tamsulosin ER (FLOMAX) 0.4 mg cp24 Take 0.4 mg by mouth once daily. No current facility-administered medications for this visit. REVIEW OF SYSTEMS His ROS was positive for that mentioned in the HPI. Otherwise a 10-point ROS was completed and was negative. Objective OBJECTIVE 04/06/25 1104 BP: 123/76 BP Site: Right Arm BP Position: Sitting BP Cuff Size: Large Adult Pulse: 77 Weight: 101.9 kg (224 lb 10.4 oz) Height: 185.4 cm (6' 1) General: General Appearance: Well appearing, alert, in no acute distress, well-hydrated, well nourished. Head: Normocephalic Neck: Supple Heart: RRR Neurologic Exam: Mental Status: He is alert. He is fully oriented. Attention is intact. Memory is intact. Language shows normal comprehension and fluency. Affect is appropriate. Cranial Nerves: Extraocular movements show full and smooth pursuits. No nystagmus. Visual velez are full to confrontation. Facial activation is symmetric. Hearing is intact to conversation. There is no hypomimia. There is no hypophonia. There is no dysarthria. Tongue is midline. Palate elevates symmetrically. Shoulder shrug is normal. Motor: Muscle bulk is normal. Rapid alternating movements are normal. Muscle power is full. Coordination: Finger to nose is smooth without ataxia. Gait/station: Normal DATA REVIEW Actual films/image/tracing reviewed and summarized as follows: n/a Old records reviewed and summarized as follows: Long EEG 05/11/18 normal MRI Brain 2204 read is normal EMG/NCS 11/17/21 normal, decreased activation Reviewed previous neuro records from Dr. Ross - paresthesias over various parts of his body, mentions OSH EMG with mild sensory neuropathy of LE c/w small fiber neuropathy, suspect tingling from buspar or small fiber neuropathy. Plan for labs and decrease buspar. At follow up suspected sensory neuropathy, increase LTG, additional labs, rec etoh cessation. Extensive neuropathy labs normal (B12, B1, MMA, TSH, A1c, SPEP, ESR, CRP, CMP, CBC, UPEP, celiac screen, ganglioside Abs, monoclonal protein, HIV, syph, CAITLYN, cryoglobulin, Hep panel) Assessment/Plan ASSESSMENT AND PLAN: Keshawn Diaz is a 60 year old ambidextrous male with a history of previously diagnosed neuropathy, alcohol abuse, and epilepsy who presents for follow up of seizures. His examination is normal. 1. Epilepsy - 8 seizures last week over a 3 day span after suddenly going from ~8 shots a day to ~2 shots a day - Explained importance of reducing alcohol slowly - Does not need seizure medication adjustment, explained if these were unprovoked would have him follow through on epilepsy referral (on at least 3rd agent), but as likely provoked by alcohol does not need to presently - Continue current dose LTG - Encouraged gradual etoh reduction - With provoked seizures can have shorter period of no driving, explained should not drive for 2 months of seizure freedom 2. Pain / paresthesias - Discussed normal exam and EMG make true neuropathy unlikely - Encouraged alcohol cessation as could cause nerve damage 3. Alcohol abuse - Encouraged gradual cessation as can cause nerve damage, imbalance, and memory impairment - Continue B1 supplement Follow-up: 6 months Risks AND Side Effects of Newly Prescribed Medication, Discussed with Patient: n/a Demetra De León MD [facility] CNPN Observed: 2025 12:00 AM Status: COMPLETED Source: [facility] Telephone ([place]) KESHAWN DIAZ ([id number]) 1965 M Date Time Provider Department 03/29/25 DEMETRA DE LEÓN During your visit today, we recorded the following information about you: Micki Peñaloza 2025 1:53 PM Signed Pts Ivett called in to let us know the patient has been having 2-3 seizures a day for the past 3 days. Followed by headaches, zoning out, and fatigue. He is taking his meds as prescribed. I advised him that per one of our providers here he needs to go to the emergency room for a full work up. I let her know that it would not be appropriate for him to wait 6 months for his next appointment. does not have any sooner appointments. His acknowledge the need to go to the ED, but she fears he won't want to go. I did tell her its important he goes, I also sent him a [employer] message with this information, as well as his next neuro appointment information. Vivienne Bolanos RN 2025 2:56 PM Signed TW agrees that instruction to go to ER is best. SUELLEN Vergara, RN, BA Allergies As of Date: 2025 (No Known Allergies) Date Reviewed: 02/12/2025 Reviewed by: Kim Dinero MA - Fully Assessed Reason for Visit: Patient Question [[id number]] Prescriptions as of 2025 - lamoTRIgine (LAMICTAL) 200 mg tablet Take 1 tablet by mouth two times a day. Take with 25 mg pill for 225 mg twice a day - lamoTRIgine (LAMICTAL) 25 mg tablet Take 1 tablet by mouth two times a day. Take with 200 mg pill for total of 225 mg twice a day. - thiamine (VITAMIN B-1) 100 mg tablet Take 100 mg by mouth two times a day. - ALPHA LIPOIC ACID ORAL Take by mouth. - pravastatin (PRAVACHOL) 80 mg tablet - finasteride (PROSCAR) 5 mg tablet - famotidine (PEPCID) 10 mg tablet Take 10 mg by mouth twice daily. - cyanocobalamin, vitamin B-12, (VITAMIN B-12 ORAL) Take by mouth. - losartan-hydroCHLOROthiazide (HYZAAR) 50-12.5 mg per tablet Take 1 tablet by mouth once daily. - DULoxetine (CYMBALTA) 60 mg capsule duloxetine 60 mg capsule,delayed release TAKE 1 CAPSULE BY MOUTH EVERY DAY - aspirin, enteric coated (ASPIRIN, ENTERIC COATED) 81 mg EC tablet Take 81 mg by mouth once daily. Takes about 3-4 times per week. - ezetimibe (ZETIA) 10 mg tablet Take 10 mg by mouth once daily. - tamsulosin ER (FLOMAX) 0.4 mg cp24 Take 0.4 mg by mouth once daily. Problem List As Of Date: 2025 (None) Encounter Status:Closed by VIVIENNE BOLANOS on 03/29/25 KIRAN Observed: 02/12/2025 11:00 AM Status: COMPLETED Source: [facility] Office Visit ([facility]) KESHAWN DIAZ ([id number]) 1965 M Date Time Provider Department 02/12/25 11:00 AM DEMETRA DE LEÓN [facility] During your visit today, we recorded the following information about you: Temperature Pulse Blood pressure Weight 97.3 degrees 74/minute 146/86 103.9 kg Demetra De León MD 02/12/2025 11:28 AM Signed FOLLOW UP NOTE Subjective Keshawn Diaz is a 59 year old male who presents for follow up. CC: Epilepsy Summary of prior care: 10/2021 Ambidextrous male with a history of previously diagnosed neuropathy, alcohol abuse, and epilepsy who presents for evaluation of neuropathy. His examination demonstrates normal sensation and reflexes. We discussed his presentation. Previous diagnosis of neuropathy though his symptoms are very wide spread, even including head, which would be unusual for neuropathy. Normal reflexes and sensation on exam also might point away from this. Don't have outside EMG, would suggest repeating to see if signs of neuropathy, and if normal, may consider biopsy as Dr. Ross had suggested. Extensive neuropathy work up neg, could be related to alcohol abuse, suggested slowly decreasing his alcohol use. Suggested B1 supplementation with alcohol abuse. His LTG dose is a little unusual, 200 AM 275 PM, suggested changing to 225 mg BID for ease and consistency. 01/2022 EMG normal low concern neuropathy, no changes. 02/2023 refer to epilepsy, decrease etoh. 08/2023 no sz with med compliance, decrease etoh, see epilepsy if further seizures. 02/2024 stop B6, decrease etoh HPI Current Issues - No recent seizures - Taking medication mostly reliably, could have a seizure if misses dose, has been a while since that occurred though - No medication side effects - Drinks similar amount as last visit, estimates around 24 / week - Taking ALA occasionally Onset: ~30s Semiology: See above Frequency: None recent Triggers: n/a Current AEDs: LTG Adverse effects: n/a Prior AEDs: LEV (unknown outcome), OXC 600 mg ER daily, possibly others not completely sure Prior neurologists: Dr. Ross, Dr. Min, [facility] Dr. Estevez Epilepsy risk factors: (-) Pre-term (-) Complications (-) Developmental Delay (-) Febrile Seizure (-) [employer]OR [employer]NAG[employer] Infections (-) Family history of epilepsy (+/-) Traumatic Brain Injury - hit head water skiing, fell in garage and hit head on concrete (-) Stroke (-) Brain Tumor (+) Substance abuse - alcohol Current Outpatient Medications Medication Sig Dispense Refill thiamine (VITAMIN B-1) 100 mg tablet Take 100 mg by mouth two times a day. ALPHA LIPOIC ACID ORAL Take by mouth. lamoTRIgine (LAMICTAL) 25 mg tablet Take 1 tablet by mouth two times a day. Take with 200 mg pill for total of 225 mg twice a day. 180 tablet 3 lamoTRIgine (LAMICTAL) 200 mg tablet Take 1 tablet by mouth two times a day. Take with 25 mg pill for 225 mg twice a day 180 tablet 3 pravastatin (PRAVACHOL) 80 mg tablet finasteride (PROSCAR) 5 mg tablet famotidine (PEPCID) 10 mg tablet Take 10 mg by mouth twice daily. cyanocobalamin, vitamin B-12, (VITAMIN B-12 ORAL) Take by mouth. losartan-hydroCHLOROthiazide (HYZAAR) 50-12.5 mg per tablet Take 1 tablet by mouth once daily. DULoxetine (CYMBALTA) 60 mg capsule duloxetine 60 mg capsule,delayed release TAKE 1 CAPSULE BY MOUTH EVERY DAY aspirin, enteric coated (ASPIRIN, ENTERIC COATED) 81 mg EC tablet Take 81 mg by mouth once daily. Takes about 3-4 times per week. ezetimibe (ZETIA) 10 mg tablet Take 10 mg by mouth once daily. tamsulosin ER (FLOMAX) 0.4 mg cp24 Take 0.4 mg by mouth once daily. No current facility-administered medications for this visit. REVIEW OF SYSTEMS His ROS was positive for that mentioned in the HPI. Otherwise a 10-point ROS was completed and was negative. Objective OBJECTIVE 02/12/25 1043 BP: 146/86 BP Site: Left Arm BP Position: Sitting BP Cuff Size: Large Adult Pulse: 74 Temp: 36.3 ?C (97.3 ?F) TempSrc: Tympanic SpO2: 100% Weight: 103.9 kg (229 lb 0.9 oz) General: General Appearance: Well appearing, alert, in no acute distress, well-hydrated, well nourished. Head: Normocephalic Neck: Supple Heart: RRR Neurologic Exam: Mental Status: He is alert. He is fully oriented. Attention is intact. Memory is intact. Language shows normal comprehension and fluency. Affect is appropriate. Cranial Nerves: Extraocular movements show full and smooth pursuits. No nystagmus. Visual velez are full to confrontation. Facial activation is symmetric. Hearing is intact to conversation. There is no hypomimia. There is no hypophonia. There is no dysarthria. Tongue is midline. Palate elevates symmetrically. Shoulder shrug is normal. Motor: Muscle bulk is normal. Rapid alternating movements are normal. Muscle power is full. Coordination: Finger to nose is smooth without ataxia. Reflexes: 2+ and symmetric including achilles Sensation: Normal to vibration Gait/station: Normal DATA REVIEW Actual films/image/tracing reviewed and summarized as follows: n/a Old records reviewed and summarized as follows: Long EEG 05/11/18 normal MRI Brain 2205 read is normal EMG/NCS 11/17/21 normal, decreased activation Reviewed previous neuro records from Dr. Ross - paresthesias over various parts of his body, mentions OSH EMG with mild sensory neuropathy of LE c/w small fiber neuropathy, suspect tingling from buspar or small fiber neuropathy. Plan for labs and decrease buspar. At follow up suspected sensory neuropathy, increase LTG, additional labs, rec etoh cessation. Extensive neuropathy labs normal (B12, B1, MMA, TSH, A1c, SPEP, ESR, CRP, CMP, CBC, UPEP, celiac screen, ganglioside Abs, monoclonal protein, HIV, syph, CAITLYN, cryoglobulin, Hep panel) Assessment/Plan ASSESSMENT AND PLAN: Keshawn Diaz is a 59 year old ambidextrous male with a history of previously diagnosed neuropathy, alcohol abuse, and epilepsy who presents for follow up of seizures and pain / paresthesias. His examination is normal. 1. Epilepsy - Seizure free on lamotrigine - Encouraged etoh cessation 2. Pain / paresthesias - Discussed normal exam and EMG make true neuropathy unlikely - Encouraged alcohol cessation as could cause nerve damage 3. Alcohol abuse - Encouraged gradual cessation as can cause nerve damage, imbalance, and memory impairment - Continue B1 supplement Follow-up: 12 months Risks AND Side Effects of Newly Prescribed Medication, Discussed with Patient: n/a Demetra De León MD [facility] Demetra De León MD 02/12/2025 11:06 AM Addendum Continue the lamotrigine, try not to miss any doses! I would try to work on slowly lowering the amount of alcohol you're drinking. Allergies As of Date: 02/12/2025 (No Known Allergies) Date Reviewed: 02/12/2025 Reviewed by: Kim Dinero MA - Fully Assessed Reason for Visit: Follow Up [171] Primary Visit Diagnosis:Nonintractable epilepsy without status epilepticus, unspecified epilepsy type (HCC) [G40.909] Other Visit Diagnoses:Paresthesia [R20.2] Alcohol abuse [F10.10] Order(s):lamoTRIgine (LAMICTAL) 200 mg tabletTake 1 tablet by mouth two times a day. Take with 25 mg pill for 225 mg twice a dayDisp: 180 tabletRfl: 3 lamoTRIgine (LAMICTAL) 25 mg tabletTake 1 tablet by mouth two times a day. Take with 200 mg pill for total of 225 mg twice a day.Disp: 180 tabletRfl: 3 Prescriptions as of 02/12/2025 - lamoTRIgine (LAMICTAL) 200 mg tablet Take 1 tablet by mouth two times a day. Take with 25 mg pill for 225 mg twice a day - lamoTRIgine (LAMICTAL) 25 mg tablet Take 1 tablet by mouth two times a day. Take with 200 mg pill for total of 225 mg twice a day. - thiamine (VITAMIN B-1) 100 mg tablet Take 100 mg by mouth two times a day. - ALPHA LIPOIC ACID ORAL Take by mouth. - pravastatin (PRAVACHOL) 80 mg tablet - finasteride (PROSCAR) 5 mg tablet - famotidine (PEPCID) 10 mg tablet Take 10 mg by mouth twice daily. - cyanocobalamin, vitamin B-12, (VITAMIN B-12 ORAL) Take by mouth. - losartan-hydroCHLOROthiazide (HYZAAR) 50-12.5 mg per tablet Take 1 tablet by mouth once daily. - DULoxetine (CYMBALTA) 60 mg capsule duloxetine 60 mg capsule,delayed release TAKE 1 CAPSULE BY MOUTH EVERY DAY - aspirin, enteric coated (ASPIRIN, ENTERIC COATED) 81 mg EC tablet Take 81 mg by mouth once daily. Takes about 3-4 times per week. - ezetimibe (ZETIA) 10 mg tablet Take 10 mg by mouth once daily. - tamsulosin ER (FLOMAX) 0.4 mg cp24 Take 0.4 mg by mouth once daily. Problem List As Of Date: 02/12/2025 (None) Other instructions from your clinician: Continue the lamotrigine, try not to miss any doses! I would try to work on slowly lowering the amount of alcohol you're drinking. Prescriptions ordered this encounter Disp Refills Start End LAMOTRIGINE 200 MG TABLET 180 * 3 02/12/2025 02/12/2026 Route: ORAL Sig: Take 1 tablet by mouth two times a day. Take with 25 mg pill for 225 mg twice a day LAMOTRIGINE 25 MG TABLET 180 * 3 02/12/2025 02/12/2026 Route: ORAL Sig: Take 1 tablet by mouth two times a day. Take with 200 mg pill for total of 225 mg twice a day. Medications Discontinued During This Encounter Prescriptions - lamoTRIgine (LAMICTAL) 25 mg tablet (Discontinued) Take 1 tablet by mouth two times a day. Take with 200 mg pill for total of 225 mg twice a day. - lamoTRIgine (LAMICTAL) 200 mg tablet (Discontinued) Take 1 tablet by mouth two times a day. Take with 25 mg pill for 225 mg twice a day Disposition: Return in about 1 year (around 02/12/2026). Follow-up and Disposition History for Encounter Date Provider Department Center 02/12/2025 [id number], [facility] [place] Encounter Status:Closed by DEMETRA DE LEÓN on 02/12/25 PROGRESS Observed: 02/12/2025 10:43 AM Status: COMPLETED Source: [facility] ID: [id number] Author: DEMETRA DE LEÓN MD Service: ? Author Type: Physician Type: Progress Notes Filed: 02/12/2025 11:28 Note Text: FOLLOW UP NOTE Subjective Keshawn Diaz is a 59 year old male who presents for follow up. CC: Epilepsy Summary of prior care: 10/2021 Ambidextrous male with a history of previously diagnosed neuropathy, alcohol abuse, and epilepsy who presents for evaluation of neuropathy. His examination demonstrates normal sensation and reflexes. We discussed his presentation. Previous diagnosis of neuropathy though his symptoms are very wide spread, even including head, which would be unusual for neuropathy. Normal reflexes and sensation on exam also might point away from this. Don't have outside EMG, would suggest repeating to see if signs of neuropathy, and if normal, may consider biopsy as Dr. Ross had suggested. Extensive neuropathy work up neg, could be related to alcohol abuse, suggested slowly decreasing his alcohol use. Suggested B1 supplementation with alcohol abuse. His LTG dose is a little unusual, 200 AM 275 PM, suggested changing to 225 mg BID for ease and consistency. 01/2022 EMG normal low concern neuropathy, no changes. 02/2023 refer to epilepsy, decrease etoh. 08/2023 no sz with med compliance, decrease etoh, see epilepsy if further seizures. 02/2024 stop B6, decrease etoh HPI Current Issues - No recent seizures - Taking medication mostly reliably, could have a seizure if misses dose, has been a while since that occurred though - No medication side effects - Drinks similar amount as last visit, estimates around 24 / week - Taking ALA occasionally Onset: ~30s Semiology: See above Frequency: None recent Triggers: n/a Current AEDs: LTG Adverse effects: n/a Prior AEDs: LEV (unknown outcome), OXC 600 mg ER daily, possibly others not completely sure Prior neurologists: Dr. Ross, Dr. Min, [facility] Dr. Estevez Epilepsy risk factors: (-) Pre-term (-) Complications (-) Developmental Delay (-) Febrile Seizure (-) [employer]NAG[employer] Infections (-) Family history of epilepsy (+/-) Traumatic Brain Injury - hit head water skiing, fell in garage and hit head on concrete (-) Stroke (-) Brain Tumor (+) Substance abuse - alcohol Current Outpatient Medications Medication Sig Dispense Refill thiamine (VITAMIN B-1) 100 mg tablet Take 100 mg by mouth two times a day. ALPHA LIPOIC ACID ORAL Take by mouth. lamoTRIgine (LAMICTAL) 25 mg tablet Take 1 tablet by mouth two times a day. Take with 200 mg pill for total of 225 mg twice a day. 180 tablet 3 lamoTRIgine (LAMICTAL) 200 mg tablet Take 1 tablet by mouth two times a day. Take with 25 mg pill for 225 mg twice a day 180 tablet 3 pravastatin (PRAVACHOL) 80 mg tablet finasteride (PROSCAR) 5 mg tablet famotidine (PEPCID) 10 mg tablet Take 10 mg by mouth twice daily. cyanocobalamin, vitamin B-12, (VITAMIN B-12 ORAL) Take by mouth. losartan-hydroCHLOROthiazide (HYZAAR) 50-12.5 mg per tablet Take 1 tablet by mouth once daily. DULoxetine (CYMBALTA) 60 mg capsule duloxetine 60 mg capsule,delayed release TAKE 1 CAPSULE BY MOUTH EVERY DAY aspirin, enteric coated (ASPIRIN, ENTERIC COATED) 81 mg EC tablet Take 81 mg by mouth once daily. Takes about 3-4 times per week. ezetimibe (ZETIA) 10 mg tablet Take 10 mg by mouth once daily. tamsulosin ER (FLOMAX) 0.4 mg cp24 Take 0.4 mg by mouth once daily. No current facility-administered medications for this visit. REVIEW OF SYSTEMS His ROS was positive for that mentioned in the HPI. Otherwise a 10-point ROS was completed and was negative. Objective OBJECTIVE 02/12/25 1043 BP: 146/86 BP Site: Left Arm BP Position: Sitting BP Cuff Size: Large Adult Pulse: 74 Temp: 36.3 ?C (97.3 ?F) TempSrc: Tympanic SpO2: 100% Weight: 103.9 kg (229 lb 0.9 oz) General: General Appearance: Well appearing, alert, in no acute distress, well-hydrated, well nourished. Head: Normocephalic Neck: Supple Heart: RRR Neurologic Exam: Mental Status: He is alert. He is fully oriented. Attention is intact. Memory is intact. Language shows normal comprehension and fluency. Affect is appropriate. Cranial Nerves: Extraocular movements show full and smooth pursuits. No nystagmus. Visual velez are full to confrontation. Facial activation is symmetric. Hearing is intact to conversation. There is no hypomimia. There is no hypophonia. There is no dysarthria. Tongue is midline. Palate elevates symmetrically. Shoulder shrug is normal. Motor: Muscle bulk is normal. Rapid alternating movements are normal. Muscle power is full. Coordination: Finger to nose is smooth without ataxia. Reflexes: 2+ and symmetric including achilles Sensation: Normal to vibration Gait/station: Normal DATA REVIEW Actual films/image/tracing reviewed and summarized as follows: n/a Old records reviewed and summarized as follows: Long EEG 05/11/18 normal MRI Brain 2205 read is normal EMG/NCS 11/17/21 normal, decreased activation Reviewed previous neuro records from Dr. Ross - paresthesias over various parts of his body, mentions OSH EMG with mild sensory neuropathy of LE c/w small fiber neuropathy, suspect tingling from buspar or small fiber neuropathy. Plan for labs and decrease buspar. At follow up suspected sensory neuropathy, increase LTG, additional labs, rec etoh cessation. Extensive neuropathy labs normal (B12, B1, MMA, TSH, A1c, SPEP, ESR, CRP, CMP, CBC, UPEP, celiac screen, ganglioside Abs, monoclonal protein, HIV, syph, CIATLYN, cryoglobulin, Hep panel) Assessment/Plan ASSESSMENT AND PLAN: Keshawn Diaz is a 59 year old ambidextrous male with a history of previously diagnosed neuropathy, alcohol abuse, and epilepsy who presents for follow up of seizures and pain / paresthesias. His examination is normal. 1. Epilepsy - Seizure free on lamotrigine - Encouraged etoh cessation 2. Pain / paresthesias - Discussed normal exam and EMG make true neuropathy unlikely - Encouraged alcohol cessation as could cause nerve damage 3. Alcohol abuse - Encouraged gradual cessation as can cause nerve damage, imbalance, and memory impairment - Continue B1 supplement Follow-up: 12 months Risks AND Side Effects of Newly Prescribed Medication, Discussed with Patient: n/a Demetra De León MD [facility] ALLERGIES DATE TYPE / CODE NAME / CODE REACTION SEVERITY SOURCE Drug Class/[id number](SNO MED CT) NO KNOWN ALLERGIES [facility] ENCOUNTERS ADMIT/DISCHARGE ACCOUNT NUMBER ADMITTING ENCOUNTER CLASS LOC ATION SOURCE 04/06/2025/ [id number] PAYERS ENCOUNTER GUARANTOR PAYER SUBSCRIBER SOURCE 04/06/2025 Primary Insuranc e:[employer] SUPERMED PPOPolicy Number: [id number] Date:[id number] Name:Zenaida ARRIETA: [id number] [address] [facility] 02/12/2025 Primary Insuranc e:[employer] SUPERMED PPOPolicy Number: [id number] Date:[id number] Name:Zenaida ARRIETA: [id number] [address] [facility]
--- NOTE | 2025-07-17 12:57 | CT_ITS ---
PROCEDURE: LIMITED CHEST CT CARDIAC ONLY 07/17/2025 REASON FOR EXAM: UNSPECIFIED ATHEROSCLEROSIS TECHNIQUE: Procedure Code: [id number] Modality: CT Procedure: LIMITED CHEST CT CARDIAC ONLY One or more dose reduction techniques were used (e.g., Automated exposure control, adjustment of the mA and/or kV according to patient size, use of iterative reconstruction technique). RADIATION DOSE SUMMARY: DLP: 1606.79 mGycm COMPARISON: Chest x-ray 03/26/2022 CT/Limited Chest CT Cardiac Only IMPRESSION: Limited imaging of the lungs demonstrates no acute process. No pleural effusion or pneumothorax is seen in visualized areas. No adenopathy is noted. The visualized upper abdomen demonstrates no significant abnormality. Reading Location: [id number]
[2025-07-17 13:18] VITALS: BP 128/74; PULSE 62; RESP 16; O2SAT 100; BMI 28.2
[2025-07-17 13:35] VITALS: PULSE 63
[2025-07-17] MEDS: Nitroglycerin SL (ED/IMG/CATH) 0.4 MG TABLET SL (13:35)
[2025-07-17 13:42] VITALS: BP 101/71; PULSE 60; RESP 16; O2SAT 94
--- NOTE | 2025-07-17 19:29 | CCTA.WCONT ---
CCTA w/Cont Coronary Arteries Date of Study:: 07/17/25 HTN Coronary Calcium Scoring: High-resolution Computed Tomographic imaging of the chest was performed on [07/17/25 ], with particular attention paid to the coronary arteries. Intravenous contrast agent was administered per protocol and images reconstructed and displayed. LEFT MAIN CORONARY ARTERY: Arises from the left coronary cusp with no calcification and bifurcates the left anterior descending artery and left circumflex artery [] LEFT ANTERIOR DESCENDING CORONARY ARTERY: Multiple areas of calcification in the proximal and mid segment with moderate stenosis noted in the proximal and mid segments. Distal mild disease is noted. [] LEFT CIRCUMFLEX CORONARY ARTERY: Nondominant vessel with soft plaque noted in the midsegment and hard plaque present in a high-grade stenosis noted. Mild diffuse distal disease is present [] RIGHT CORONARY ARTERY: Dominant right coronary artery with significant plaque noted in the proximal mid and distal segments. Moderate occlusive disease is noted in the proximal and mid segments. [] THORACIC AORTA: [] PULMONARY ARTERY: [] LEFT ATRIUM/APPENDAGE: [] MITRAL VALVE: [] AORTIC VALVE: [] LEFT VENTRICLE: [] CORONARY CALCIUM SCORE: 2044 [] Findings Coronary Artery Left Main (LM): 0 Left Anterior Descending (LAD): 922 Left Circumflex (LCX): 151 Right Coronary Artery (RCA): 972 Total Agatston Score: 2,045 Percentile Rankin Calcium Scoring Interpretation: Different methods to categorize the overall amount of coronary plaque. Overall amount CAC SIS Visual of coronary plaque P1 Mild -100 <2 1-2 vessels with mild amount of plaque P2 Moderate 101-300 3-4 1-2 vessels with moderate amount, 3 vessels with mild amount of plaque P3 Severe 301-999 5-7 3 vessels with moderate amount, 1 vessel with severe amount of plaque P4 Extensive >1000 >8 2-3 vessels with severe amount of plaque Calcium Score: Extensive: 2-3 vessels w/severe amount of plaque Conclusion: Significant three-vessel atherosclerosis with likely moderate obstruction noted in the LAD and right coronary artery and high-grade mid obstruction noted in the circumflex artery.
== END | disposition home or self-care (01) ==
LOC: CT 12:56
PROVIDERS: PCP Family Medicine; Referring Provider Family Medicine; Visit Provider Family Medicine
DX: I70.90 Unspecified atherosclerosis (principal)
CPT/HCPCS: 75571; 75574; 76380; Q9967

== ENCOUNTER → 2025-07-23 | Outpatient (CLI) | payer OTHER, SELFPAY ==
[2025-07-23 10:38] LABS: Hematocrit 37.2 % (40-54); Hemoglobin 13.3 g/dL (13.0-16.5); Immature Granulocytes Count 0.030 X10^3/uL (0.0-0.0); Mean Corp Hgb Conc 35.8 g/dL (32-36); Mean Corpuscular Volume 91.4 fL (80-94); Mean Platelet Vol. 9.9 fl (6.2-12.0); NRBC Flagged by Analyzer 0 % (0-5); Platelet Count 239 K/mm3 (150-450); RBC Distribution Width CV 12.0 % (11.6-14.6); RBC Distribution Width SD 40.2 fl (35.1-43.9); Red Blood Count 4.07 M/mm3 (4.6-6.2); White Blood Count 5.7 K/mm3 (4.4-11.0)
[2025-07-23 12:51] LABS: AST(SGOT) 20 U/L (<=37); Alanine Aminotransfer ALT/SGPT 14 U/L (<=46); Albumin, Serum 4.4 g/dL (3.5-5.0); Alkaline Phosphatase 54 U/L (40-129); Anion Gap 12 (5-15); BUN 11 mg/dL (4-19); BUN/Creat Ratio 12.0 RATIO (10-20); Calcium,Total 10.4 mg/dL (7.6-11.0); Carbon Dioxide 26.0 mmol/L (21.0-32.0); Chloride 99 mmol/L (98-108); Globulin 2.4 g/dL (2.2-4.2); Glucose 107 mg/dL (70-99); Lipase 22 U/L (13-75); Potassium 4.1 mmol/L (3.3-5.1)
[2025-07-24 04:07] LABS: GGTP 66 IU/L (0-65)
== END | disposition home or self-care (01) ==
LOC: MFPLAB 08:58
PROVIDERS: PCP Family Medicine; Visit Provider Family Medicine
DX: R63.4 Abnormal weight loss (principal); I25.10 Atherosclerotic heart disease of native coronary artery without angina pectoris
CPT/HCPCS: 36415; 80053; 82977; 83690; 84443; 85025

== ENCOUNTER → 2025-07-25 | Outpatient (CLI) | payer OTHER, SELFPAY ==
[2025-07-27 14:08] LABS: Pancreatic Elastase, Fecal 634 (>200)
== END | disposition home or self-care (01) ==
LOC: MTLAB 07:42
PROVIDERS: PCP Family Medicine; Referring Provider Family Medicine; Visit Provider Family Medicine
DX: R63.4 Abnormal weight loss (principal); I25.10 Atherosclerotic heart disease of native coronary artery without angina pectoris
CPT/HCPCS: 82653

== ENCOUNTER → 2025-08-15 | Outpatient (CLI) | payer OTHER, SELFPAY ==
[2025-08-15 14:51] LABS: PSA,Total - Annual Screen 0.24 ng/mL (0.02-4.00)
== END | disposition home or self-care (01) ==
LOC: MFPLAB 09:23
PROVIDERS: PCP Family Medicine; Visit Provider Family Medicine
DX: Z12.5 Encounter for screening for malignant neoplasm of prostate (principal)
CPT/HCPCS: 36415; 84153; G0103

== ENCOUNTER → 2025-09-07 | Outpatient (CLI) | payer OTHER, SELFPAY ==
[2025-09-07 10:21] LABS: Hematocrit 35.0 % (40-54); Hemoglobin 12.5 g/dL (13.0-16.5); Immature Granulocytes Count 0.010 X10^3/uL (0.0-0.0); Mean Corp Hgb Conc 35.7 g/dL (32-36); Mean Corpuscular Volume 92.1 fL (80-94); Mean Platelet Vol. 9.5 fl (6.2-12.0); NRBC Flagged by Analyzer 0 % (0-5); Platelet Count 216 K/mm3 (150-450); RBC Distribution Width CV 11.9 % (11.6-14.6); RBC Distribution Width SD 39.9 fl (35.1-43.9); Red Blood Count 3.80 M/mm3 (4.6-6.2); White Blood Count 4.7 K/mm3 (4.4-11.0)
[2025-09-07 11:06] LABS: Anion Gap 10 (5-15); BUN 8 mg/dL (4-19); BUN/Creat Ratio 8.9 RATIO (10-20); Calcium,Total 9.6 mg/dL (7.6-11.0); Carbon Dioxide 26.5 mmol/L (21.0-32.0); Chloride 98 mmol/L (98-108); Glucose 113 mg/dL (70-99); Potassium 4.0 mmol/L (3.3-5.1)
== END | disposition home or self-care (01) ==
PROVIDERS: PCP Family Medicine; Referring Provider Internal Medicine Cardiovascular Disease; Visit Provider Internal Medicine Cardiovascular Disease
DX: I25.10 Atherosclerotic heart disease of native coronary artery without angina pectoris (principal); R93.1 Abnormal findings on diagnostic imaging of heart and coronary circulation
CPT/HCPCS: 36415; 80048; 85025

== ENCOUNTER 2025-09-25 07:26 | Day surgery (SDC) | payer OTHER, SELFPAY ==
[2025-09-24 08:01] VITALS: BMI 28.8
--- OUTSIDE RECORDS SUMMARY | 2025-09-25 07:30 | XMS RPT_ITS | CCD ---
Author Organization [facility] Care Team Providers Care Plate Take Out Worker Name Role Phone NEHEMIAS ROSS Unavailable Unavailable Derrell Muñoz MD Primary Care Provider Derrell Muñoz MD Primary Care Provider [phone] Derrell Muñoz MD Primary Care Provider [phone] Derrell Muñoz MD Primary Care Provider [phone] Derrell Muñoz Primary Care Provider [phone] Brett Her Attending Provider Dr. Derrell Muñoz Referring Provider [phone] Dr. Derrell Muñoz Other Provider Dr. Jalil Hope Attending Provider Derrell Muñoz MD Primary Care Provider Dr. Derrell Muñoz MD Primary Care Provider Dr. Derrell Muñoz MD Referring Provider Blane Harrison Attending Provider Dr. Derrell Leon DO Referring Provider Dr. Derrell Leon DO Emergency Provider DEMETRA HILL Attending Unavailable DERRELL MUÑOZ Primary Care Unavailable DEMETRA HILL Attending Unavailable DERRELL MUÑOZ Primary Care Unavailable Dr. Derrell Leon DO Attending Provider Dr. Blane Gaspar MD Attending Provider Chasity CONKLIN Dr. Blane E Referring Provider Toni CONKLIN, Dr. Chambers Primary Care Provider Toni CONKLIN, Dr. Chambers Attending Provider Toni CONKLIN, Dr. Chambers Primary Care Physician Dr. Derrell Leon DO Attending Physician Edward HARVEY, Dr. Chambers Emergency Department Physi dilip Chasity CONKLIN, Dr. Blane Ley Attending Physician Toni CONKLIN, Dr. Chambers Attending Physician Toni CONKLIN, Dr. Chambers Referring Provider Toni CONKLIN, Dr. Chambers Nurse Practitioner Arden CONKLIN, Dr. West Attending Physician Toni CONKLIN, Dr. Chambers Primary Care Physician Muñoz, Derrell Primary Care Unavailable Muñoz, Derrell Attending Unavailable Muñoz, Derrell Primary Care Unavailable Blane Gaspar Attending Unavailable Blane Gaspar Referring Unavailable Muñoz, Derrell Attending Unavailable Muñoz, Derrell Primary Care Unavailable Muñoz, Derrell Referring Unavailable Muñoz, Derrell Primary Care Unavailable Muñoz, Derrell Attending Unavailable Muñoz, Derrell Referring Unavailable Muñoz, Derrell Attending Unavailable Muñoz, Derrell Primary Care Unavailable Muñoz, Derrell Attending Unavailable Muñoz, Derrell Primary Care Unavailable Muñoz, Derrell Referring Unavailable Muñoz, Derrell Primary Care Unavailable Muñoz, Derrell Attending Unavailable Schwiger, Derrell Attending Unavailable Schwiger, Derrell Referring Unavailable Muñoz, Derrell Primary Care Unavailable Muñoz, Derrell Referring Unavailable Brett Her Attending Unavailable Muñoz, Derrell Primary Care Unavailable Muñoz, Derrlel Consulting Unavailable Muñoz, Derrell Referring Unavailable Muñoz, Derrell Primary Care Unavailable Roof DIRECTOR OF AGRICULTURE, Blane Patrick Attending Unavailable Medications Current Medications Medication Drug Class(es) Dates Sig (Normalized) Sig (Original) ALPHA LIPOIC ACID ORAL (7 sources) ALPHA LIPOIC ACI D ORAL Take by mouth. Active ALPHA LIPOIC ACI D ORAL Take by mouth. 0 Active ALPHA LIPOIC ACI D ORAL Take by mouth once daily. 0 Active Comment on above: Take by mouth once d aily. aspirin 81 mg delayed release oral tablet (20 sources) Platelet Aggregation Inhibitor, Nonsteroidal Anti-inflammatory Drug Start: 04-07-2021 take 1 tablet by mouth every other day aspirin, enteric coated (ASPIRIN, ENTERIC COATED) 81 mg EC tablet Take 81 mg by mouth once daily. Takes about 3-4 times per week. Active Comment on above: Take 81 mg by mouth once daily. Takes about 2-3 times per week. Take 81 mg by mouth once daily. Takes about 3-4 times per week. cyanocobalamin, vitamin B-12, (VITAMIN B-12 ORAL) (6 sources) cyanocobalamin, vitamin B-12, (VITAMIN B-12 ORAL) Take by mouth. Active cyanocobalamin, vitamin B-12, (VITAMIN B-12 ORAL) Take by mouth. 0 Active Comment on above: Take by mouth. ezetimibe 10 mg oral tablet (20 sources) Dietary Cholesterol Absorption Inhibitor Start: 02-23-20 take 1 tablet by mouth once daily Comment on above: Take 10 mg by mouth once daily. famotidine 10 mg oral tablet (6 sources) Histamine-2 Receptor Antagonist take 1 tablet by mouth twice daily famotidine (PEPCID) 10 mg tablet Take 10 mg by mouth twice daily. Active Comment on above: Take 10 mg by mouth twice daily. finasteride 5 mg oral tablet (6 sources) 5-alpha Reductase Inhibitor Start: 03-01-20 finasteride (PROSCAR) 5 mg tablet 03/01/2023 Active hydroCHLOROthiazide 12.5 mg / losartan potassium 50 mg oral tablet (20 sources) Thiazide Diuretic, Angiotensin 2 Receptor Jeanie Start: 04-07-20 Start: 04-07-2021 take 1 tablet by michael th once daily Losartan-Hydrochlorothiazide Active 1 TA BLET PO DAILY April 07, 2021 12:00am Comment on above: Take 1 tablet by michael th once daily. lamoTRIgine 25 mg oral tablet (20 sources) Mood Stabilizer, Anti-epileptic Agent Start: 01-26-2023 End: 02-12-2026 take 1 tablet by mouth twice daily lamoTRIgine (LAMICTAL) 200 mg tablet Indications: Nonintractable epilepsy without status epilepticus, unspecified epilepsy type (HCC) Take 1 tablet by mouth two times a day. Take with 25 mg pill for 225 mg twice a day 180 tablet 3 02/12/2025 02/12/2026 Active Start: 01-26-2023 End: 02-12-2026 take 1 tablet by mouth twice daily lamoTRIgine (LAMICTAL) 25 mg tablet Indications: Nonintractable epilepsy without status epilepticus, unspecified epilepsy type (HCC) Take 1 tablet by mouth two times a day. Take with 200 mg pill for total of 225 mg twice a day. 180 tablet 3 02/12/2025 02/12/2026 Active Start: 01-21-2022 End: 01-21-2023 take 1 tablet by mouth twice daily lamoTRIgine (LAMICTAL) 200 mg tablet Indications: Nonintractable epilepsy without status epilepticus, unspecified epilepsy type (HCC) Take 1 tablet by mouth twice daily. Take with 25 mg pill for 225 mg twice a day 60 tablet 11 01/21/2022 Active Start: 01-21-2022 End: 01-21-2023 take 1 tablet by mouth twice daily lamoTRIgine (LAMICTAL) 25 mg tablet Indications: Nonintractable epilepsy without status epilepticus, unspecified epilepsy type (HCC) Take 1 tablet by mouth twice daily. Take with 200 mg pill for total of 225 mg twice a day. 60 tablet 11 01/21/2022 Active Start: 11-05-2021 End: 01-21-2022 take 1.5 tablets by mouth twice daily lamoTRIgine (LAMICTAL) 150 mg tablet Indications: Nonintractable epilepsy without status epilepticus, unspecified epilepsy type (HCC) Take 1.5 tablets by mouth twice daily. 90 tablet 5 11/05/2021 01/21/2022 Discontinued Start: 02-22-2017 Comment on above: Take 1 tablet by michael th twice daily. Take with 25 mg pill for 225 mg twice a day Take 1 tablet by michael th twice daily. Take with 200 mg pill for total of 225 mg twice a day. Take 1.5 tablets by mouth twice daily. pravastatin sodium 80 mg oral tablet (6 sources) HMG-CoA Reductase Inhibitor Start: 3 pravastatin (PRAVACHOL) 80 mg tablet 03/01/2023 Active simvastatin 40 mg oral tablet (17 sources) HMG-CoA Reductase Inhibitor Start: 7 take 1 tablet by mouth at bedtime Comment on above: Take 40 mg by mouth once daily. thiamine 100 mg oral tablet (4 sources) take 1 tablet by mouth twice daily thiamine (VITAMIN B-1) 100 mg tablet Take 100 mg by mouth two times a day. Active Completed/Discontinued Medications Medication Drug Class(es) Dates Sig (Normalized) Sig (Original) acetaminophen 325 mg / oxyCODONE hydrochloride 5 mg oral tablet (14 sources) Opioid Agonist Start: 05-14-2021 End: 01-07-2025 Oxycodone-Acetamino phen 5-325 mg tablet Discontinued 1 {tbl} PO EVERY 6 HOURS as needed for pain 14 7 May 14, 2021 January 07, 2025 10:27am Direct inguinal hernia Start: 05-14-2021 take 1 tablet by michael th every six hours Oxycodone-Acetaminophen Active 1 TABLET PO EVERY 6 HOURS 14 May 14, 2021 BEE POLLEN ORAL (3 sources) BEE POLLEN ORAL Take by mouth once daily. 0 Active Comment on above: Take by mouth once d aily. busPIRone hydrochloride 15 mg oral tablet (3 sources) take 1 tablet by mouth three times daily busPIRone (BUSPAR) 15 mg tablet Take 15 mg by mouth three times daily. 0 Active Comment on above: Take 15 mg by mouth three times daily. ciprofloxacin 500 mg oral tablet (14 sources) Quinolone Antimicrobial Start: 05-14-20 End: 01-08-20 take 1 tablet by mouth twice daily Ciprofloxacin Hcl 500 mg tablet Discontinued 500 mg PO TWICE A DAY 10 0 May 14, 2021 12:00am January 07, 2025 10:27am COMPOUNDED PRESCRIPTION (3 sources) COMPOUNDED PRESCRIPTION Tumeric, daily. 0 Active Comment on above: Tumeric, daily. doxycycline hyclate 100 mg oral capsule (5 sources) Tetracycline-class Drug Start: 01-08-20 End: 01-15-20 take 1 capsule by mouth twice daily Doxycycline Hyclate 100 mg capsule Discontinued 100 mg PO TWICE A DAY 14 7 January 07, 2025 12:00am January 13, 2025 12:00am January 14, 2025 6:34am doxylamine succinate 25 mg oral tablet (14 sources) Start: 04-07-20 End: 01-08-20 take 1 tablet by mouth at bedtime as needed for sleep Doxylamine Succinate (Unisom (Doxylamine)) 25 mg Tablet Discontinued 25 mg PO AT BEDTIME as needed for Sleep April 07, 2021 12:00am January 07, 2025 10:27am DULoxetine 60 mg delayed release oral capsule (20 sources) Serotonin and Norepinephrine Reuptake Inhibitor Start: 04-07-20 End: 01-08-20 25 take 1 capsule by mouth once daily Duloxetine 60 mg capsule,delayed release(DR/EC) Discontinued 60 mg PO DAILY April 07, 2021 12:00am January 07, 2025 10:27am mental health Comment on above: duloxetine 60 mg cap pascual,delayed release TAKE 1 CAPSULE BY MOUTH EVERY DAY MULTIVIT-MINERALS/YAZAN TRENT FUM (MULTI VITAMIN ORAL) (3 sources) MULTIVIT-MINERAL S/FE RROUS FUM (MULTI VITAMIN ORAL) Take by mouth once daily. 0 Active Comment on above: Take by mouth once d aily. 24 hr OXcarbazepine 600 mg extended release oral tablet (3 sources) Anti-epileptic Agent take 600 mg by mouth once daily OXcarbazepine ER (OXTELLAR XR) 600 mg Tb24 Take 600 mg by mouth once daily. 0 Active Comment on above: Take 600 mg by mouth once daily. predniSONE 20 mg oral tablet (5 sources) Start: 01-08-20 End: 01-13-20 take 2 tablets by mouth once daily Prednisone 20 mg tablet Discontinued 40 mg PO daily 10 5 0 January 07, 2025 12:00am January 11, 2025 12:00am January 12, 2025 12:13am tamsulosin hydrochloride 0.4 mg oral capsule (20 sources) alpha-Adrenergic Jeanie Start: 02-23-20 End: 05-14-20 21 take 1 capsule by mouth at bedtime Tamsulosin (Flomax) 0.4 MG capsule Discontinued 0.4 mg PO AT BEDTIME February 22, 2017 12:00am May 14, 2021 7:38am prostate Comment on above: Take 0.4 mg by mouth once daily. VITAMIN B COMPLEX ORAL (3 sources) VITAMIN B COMPLE X ORAL Take by mouth once daily. 0 Active Comment on above: Take by mouth once d aily. Problems Active Problems Problem Classification Problem Date Documented Da te Episodic/Chronic Abdominal hernia (14 sources) Direct inguinal hernia; Translations: [Unilateral inguinal hernia, without obstruction or gangrene, not specified as recurrent] 05-14-2021 Episodic Alcohol-related disorders (4 sources) Alcohol abuse; Translations: [Alcohol abuse, uncomplicated] Onset: 02-12-2025 02-25-2024 Chronic Disorders of lipid metabolism (14 sources) Hyperlipidemia; Translations: [Hyperlipidemia, unspecified] 04-07-2021 Chronic Epilepsy; convulsions (20 sources) Seizure disorder; Translations: [Epilepsy, unspecified, not intractable, without status epilepticus] Onset: 02-12-2025 Chronic Essential hypertension (14 sources) Essential hypertension; Translations: [Essential (primary) hypertension] 04-10-2021 Chronic Hyperplasia of prostate (14 sources) Benign prostatic hypertrophy with outflow obstruction; Translations: [Benign prostatic hyperplasia with lower urinary tract symptoms] 05-14-2021 Chronic Mood disorders (14 sources) Depressive disorder; Translations: [Depression] 04-10-2021 Chronic Nonspecific chest pain (14 sources) Chest pain; Translations: [Chest pain, unspecified] 04-10-2021 Episodic Other connective tissue disease (1 source) Pain in right arm; Translations: [Pain in right arm] Onset: 05-25-2025 Episodic Other diseases of bladder and urethra (14 sources) Diverticulum of bladder; Translations: [Diverticulum of bladder] 05-14-2021 Chronic Other nervous system disorders (2 sources) Paresthesia; Translations: [Paresthesia of skin] Episodic Other nervous system disorders (1 source) Paresthesia of skin; Translations: [Paresthesia] Onset: 02-12-2025 Episodic Other nutritional; endocrine; and metabolic disorders (1 source) Abnormal weight loss; Translations: [Abnormal weight loss] Onset: 08-15-2025 Episodic Other screening for suspected conditions (not mental disorders or infectious disease) (1 source) Encounter for screening for malignant neoplasm of prostate; Translations: [Encounter for screening for malignant neoplasm of prostate] Onset: 08-16-2025 Episodic Peripheral and visceral atherosclerosis (2 sources) Unspecified atherosclerosis; Translations: [Unspecified atherosclerosis] Onset: 08-09-2025 Chronic Residual codes; unclassified (14 sources) History of hernia repair; Translations: [Other specified postprocedural states] 04-07-2021 Episodic Spondylosis; intervertebral disc disorders; other back problems (1 source) Cervicalgia; Translations: [Cervicalgia] Onset: 07-17-2025 Episodic Unclassified (1 source) Unknown / UNK(Unknown) Onset: 05-11-2018 Unclassified (1 source) Recent Seizures Onset: 04-06-2025 Past or Other Problems Problem Classification Problem Date Documented Da te Episodic/Chronic Epilepsy; convulsions (1 source) Unspecified convulsions; Translations: [Unspecified convulsions] Onset: 04-04-2025 Episodic Other non-traumatic joint disorders (1 source) Pain in right shoulder; Translations: [Pain in right shoulder] Onset: 05-03-2025 Episodic Other upper respiratory infections (8 sources) Upper respiratory infection; Translations: [Acute upper respiratory infection, unspecified] Onset: 01-07-2025 01-07-2025 Episodic Results Test Name Value Interpretation Reference Range Facility PSA,Total - Annual Screenon 08-15-2025 PSA,TOT SCREEN 0.24 ng/mL Normal 0.02-4.00 [facility] Comment on above: Result Comment: This test was performed using the [employer] tPSA method. Measured values of a patient??sample can vary depending on the testing procedure used. PSA values determined on patient samples by different testing procedures cannot be used interchangeably. If there is a change in PSA assays while monitoring therapy, sequential testing should be performed to confirm baseline values. Performed By: #### L 501.9910 #### [facility] [address] [place], [address] [id number] 07-27-2025 P ELASTASE,FECA 634 Normal >200 [facility] Comment on above: Result Comment: Resu lt Units: ug Elast./g Severe Pancreatic Insufficiency: <100 Moderate Pancreatic Insufficiency: 100 - 200 Normal: >200 Performed at: - [facility] [id number] Correspondence School Teacher: Quinn Barnes MD, Phone: [phone] Performed By: #### L 7000.0750 ####[facility] [address] [place], [address] Stool pancreatic elastase me asurement (mass/mass)Ordered By: Derrell Muñoz on 07-25-2025 Elastase.pancreatic (Stl) [Mass/Mass] 634 >200 [facility] Comment on above: Result Units: ug [address] st./g Severe Pancreatic Insufficiency: <100 Moderate Pancreatic Insufficiency: 100 - 200 Normal: >200Performed at: - [facility] [address] [id number] Director: Quinn Barnes MD, Phone: [phone] [id number] 07-24-2025 GGTP 66 IU/L Abnormal 0-65 [facility] Comment on above: Result Comment: Perf ormed at: CB - [facility] [address] [id number] Correspondence School Teacher: Angel Ruby PhD, Phone: [phone] Performed By: #### L 500.4050, L100.0100, L501.3028, L501.8638, L501.9571 ####[facility] [address] [place], [place], [id number] Absolute lymphocyte countOrd ered By: Derrell Muñoz on 07-23-2025 Lymphocytes Auto (Unsp spec) [#/Vol] 0.95 10*3/uL 0.83-4.51 [facility] Absolute neutrophil countOrd ered By: Derrell Muñoz on 07-23-2025 Neutrophils (Bld) [#/Vol] 4.2 10*3/uL 2.0-7.7 [facility] Anion gap in Serum or Plasma Ordered By: Derrell Muñoz on 07-23-2025 Anion gap [Moles/Vol] 12 mmol/L 5-15 [facility] Automated lymphocyte count a s percentage of total leukocytesOrdered By: Derrell Muñoz on 07-23-2025 Lymphocytes/100 WBC Auto (Unsp spec) 16.8 % Low 19-41 [facility] BUN/creatinine ratioOrdered By: Derrell Muñoz on 07-23-2025 Urea nitrogen/Creatinine [Mass ratio] 12.0 mg/mg 10-20 [facility] Basophil percentageOrdered B y: eDrrell Muñoz on 07-23-2025 Basophils/100 WBC (Bld) 0.9 % 0-1 [facility] Bilirubin, totalOrdered By: Derrell Muñoz on 07-23-2025 Bilirubin [Mass/Vol] 0.47 mg/dL 0.00-1.30 [facility] CBC W/Diff, Automatedon 10-0 6-2025 Absolute Lymph 0.95 X10 3/uL Normal 0.83-4.51 [facility] Comment on above: Performed By: #### L 500.4050, L100.0100, L501.9520, L501.5101, L501.2450 ####[facility] [address] [place], [address] Absolute Neut 4.2 X10 3/uL Normal 2.0-7.7 [facility] Comment on above: Performed By: #### L 500.4050, L100.0100, L501.9520, L501.5101, L501.2450 ####[facility] [address] [place], [address] Basophils/100 WBC (Bld) 0.9 % Normal 0-1 [facility] Comment on above: Performed By: #### L 500.4050, L100.0100, L501.9520, L501.5101, L501.2450 ####[facility] [address] [place], [address] Eosinophils/100 WBC (Bld) 2.1 % Normal 0-5 [facility] Comment on above: Performed By: #### L 500.4050, L100.0100, L501.9520, L501.5101, L501.2450 ####[facility] [address] [place], [address] Erythrocyte distribution width (RBC) [Ratio] 12.0 % Normal 11.6-14.6 [facility] Comment on above: Performed By: #### L 500.4050, L100.0100, L501.9520, L501.5101, L501.2450 ####[facility] [address] [place], [address] Hematocrit (Bld) [Volume fraction] 37.2 % Low 40-54 [facility] Comment on above: Performed By: #### L 500.4050, L100.0100, L501.9520, L501.5101, L501.2450 ####[facility] [address] [place], [address] Hemoglobin (Bld) [Mass/Vol] 13.3 g/dL Normal 13.0-16.5 [facility] Comment on above: Performed By: #### L 500.4050, L100.0100, L501.9520, L501.5101, L501.2450 ####[facility] [address] [place], [address] IG% 0.500 Normal 0.0-0.9 [facility] Comment on above: Result Comment: IG% - Immature Granulocytes (promyelocytes, myelocytes and metamyelocytes) > 1% indicates that a LEFT SHIFT is Present. Performed By: #### L 500.4050, L100.0100, L501.9520, L501.5101, L501.2450 ####[facility] [address] [place], [address] Lymphocytes/100 WBC (Bld) 16.8 % Low 19-41 [facility] Comment on above: Performed By: #### L 500.4050, L100.0100, L501.9520, L501.5101, L501.2450 ####[facility] [address] [place], [address] MCH (RBC) [Entitic mass] 32.7 pg High 27.0-32.0 [facility] Comment on above: Performed By: #### L 500.4050, L100.0100, L501.9520, L501.5101, L501.2450 ####[facility] [address] [place], [address] MCHC (RBC) [Mass/Vol] 35.8 g/dL Normal 32-36 [facility] Comment on above: Performed By: #### L 500.4050, L100.0100, L501.9520, L501.5101, L501.2450 ####[facility] [address] [place], [address] MCV (RBC) [Entitic vol] 91.4 fL Normal 80-94 [facility] Comment on above: Performed By: #### L 500.4050, L100.0100, L501.9520, L501.5101, L501.2450 ####[facility] [address] [place], [address] Monocytes/100 WBC (Bld) 6.4 % Normal 0-10 [facility] Comment on above: Performed By: #### L 500.4050, L100.0100, L501.9520, L501.5101, L501.2450 ####[facility] [address] [place], [address] Neutrophils/100 WBC (Bld) 73.3 % High 47-70 [facility] Comment on above: Performed By: #### L 500.4050, L100.0100, L501.9520, L501.5101, L501.2450 ####[facility] [address] [place], [address] Nucleated RBC (Bld) [#/Vol] 0 10*3/uL Normal 0-5 [facility] Comment on above: Performed By: #### L 500.4050, L100.0100, L501.9520, L501.5101, L501.2450 ####[facility] [address] [place], [address] Platelet mean volume (Bld) [Entitic vol] 9.9 fL Normal 6.2-12.0 [facility] Comment on above: Performed By: #### L 500.4050, L100.0100, L501.9520, L501.5101, L501.2450 ####[facility] [address] [place], [address] Platelets (Bld) [#/Vol] 239 10*3/uL Normal 150-450 [facility] Comment on above: Performed By: #### L 500.4050, L100.0100, L501.9520, L501.5101, L501.2450 ####[facility] [address] [place], [address] RBC (Bld) [#/Vol] 4.07 10*6/uL Low 4.6-6.2 [facility] Comment on above: Performed By: #### L 500.4050, L100.0100, L501.9520, L501.5101, L501.2450 ####[facility] [address] [place], [address] RDW SD 40.2 fl Normal 35.1-43.9 [facility] Comment on above: Performed By: #### L 500.4050, L100.0100, L501.9520, L501.5101, L501.2450 ####[facility] [address] [place], [address] WBC (Bld) [#/Vol] 5.7 10*3/uL Normal 4.4-11.0 [facility] Comment on above: Performed By: #### L 500.4050, L100.0100, L501.9520, L501.5101, L501.2450 ####[facility] [address] [place], [address] Carbon dioxide, total [Moles /volume] in Central venous bloodOrdered By: Derrell Muñoz on 07-23-2025 CO2 [Moles/Vol] 26.0 mmol/L 21.0-32.0 [facility] Chloride assayOrdered By: Fareed Muñoz on 07-23-2025 Chloride [Moles/Vol] 99 mmol/L 98-108 [facility] Comprehensive Metabolic Prof ilon 07-23-2025 Albumin [Mass/Vol] 4.4 g/dL Normal 3.5-5.0 [facility] Comment on above: Performed By: #### L 500.4050, L100.0100, L501.9520, L501.5101, L501.2450 ####[facility] [address] [place], [address] Albumin/Globulin [Mass ratio] 1.8 {ratio} Normal 0.9-2.4 [facility] Comment on above: Performed By: #### L 500.4050, L100.0100, L501.9520, L501.5101, L501.2450 ####[facility] [address] [place], [address] ALK PHOS 54 U/L Normal 40-129 [facility] Comment on above: Performed By: #### L 500.4050, L100.0100, L501.9520, L501.5101, L501.2450 ####[facility] [address] [place], [address] ALT [Catalytic activity/Vol] 14 U/L Normal <=46 [facility] Comment on above: Performed By: #### L 500.4050, L100.0100, L501.9520, L501.5101, L501.2450 ####[facility] [address] [place], [address] AST [Catalytic activity/Vol] 20 U/L Normal <=37 [facility] Comment on above: Performed By: #### L 500.4050, L100.0100, L501.9520, L501.5101, L501.2450 ####[facility] [address] [place], [address] Bilirubin [Mass/Vol] 0.47 mg/dL Normal 0.00-1.30 [facility] Comment on above: Performed By: #### L 500.4050, L100.0100, L501.9520, L501.5101, L501.2450 ####[facility] [address] [place], [address] BUN/CRE 12.0 RATIO Normal 10-20 [facility] Comment on above: Performed By: #### L 500.4050, L100.0100, L501.9520, L501.5101, L501.2450 ####[facility] [address] [place], [address] Calcium [Mass/Vol] 10.4 mg/dL Normal 7.6-11.0 [facility] Comment on above: Performed By: #### L 500.4050, L100.0100, L501.9520, L501.5101, L501.2450 ####[facility] [address] [place], [address] Chloride [Moles/Vol] 99 mmol/L Normal 98-108 [facility] Comment on above: Performed By: #### L 500.4050, L100.0100, L501.9520, L501.5101, L501.2450 ####[facility] [address] [place], [address] CO2 [Moles/Vol] 26.0 mmol/L Normal 21.0-32.0 [facility] Comment on above: Performed By: #### L 500.4050, L100.0100, L501.9520, L501.5101, L501.2450 ####[facility] [address] [place], [address] Creatinine [Mass/Vol] 0.87 mg/dL Normal 0.70-1.20 [facility] Comment on above: Performed By: #### L 500.4050, L100.0100, L501.9520, L501.5101, L501.2450 ####[facility] [address] [place], [address] GAP 12 Normal 5-15 [facility] Comment on above: Performed By: #### L 500.4050, L100.0100, L501.9520, L501.5101, L501.2450 ####[facility] [address] [place], [address] GFR/1.73 sq M.predicted among non-blacks MDRD (S/P/Bld) [Vol rate/Area] 99 mL/min/{1.73_m2} Normal >60 [facility] Comment on above: Result Comment: mL/m in/1.73m2 CKD-EPI Creatinine Equation (2020) Performed By: #### L 500.4050, L100.0100, L501.9520, L501.5101, L501.2450 ####[facility] [address] [place], [address] Globulin (S) [Mass/Vol] 2.4 g/dL Normal 2.2-4.2 [facility] Comment on above: Performed By: #### L 500.4050, L100.0100, L501.9520, L501.5101, L501.2450 ####[facility] [address] [place], [address] Glucose [Mass/Vol] 107 mg/dL High 70-99 [facility] Comment on above: Performed By: #### L 500.4050, L100.0100, L501.9520, L501.5101, L501.2450 ####[facility] [address] [place], [address] Potassium [Moles/Vol] 4.1 mmol/L Normal 3.3-5.1 [facility] Comment on above: Performed By: #### L 500.4050, L100.0100, L501.9520, L501.5101, L501.2450 ####[facility] [address] [place], [address] Sodium [Moles/Vol] 137 mmol/L Normal 133-145 [facility] Comment on above: Performed By: #### L 500.4050, L100.0100, L501.9520, L501.5101, L501.2450 ####[facility] [address] [place], [address] T PROT 6.8 g/dL Normal 5.9-8.4 [facility] Comment on above: Performed By: #### L 500.4050, L100.0100, L501.9520, L501.5101, L501.2450 ####[facility] [address] [place], [address] Urea nitrogen [Mass/Vol] 11 mg/dL Normal 4-19 [facility] Comment on above: Performed By: #### L 500.4050, L100.0100, L501.9520, L501.5101, L501.2450 ####[facility] [address] [place], [address] Eosinophil percentageOrdered By: Derrell Muñoz on 07-23-2025 Eosinophils/100 WBC (Bld) 2.1 % 0-5 [facility] Erythrocyte distribution wid th ratioOrdered By: Derrell Muñoz on 07-23-2025 Erythrocyte distribution width (RBC) [Ratio] 12.0 % 11.6-14.6 [facility] Erythrocyte distribution wid th standard deviationOrdered By: Derrell Muñoz on 07-23-2025 Erythrocyte distribution width (RBC) [Ratio] 40.2 fl 35.1-43.9 [facility] Gamma glutamyl transferase ( GGT) measurementOrdered By: Derrell Muñoz on 07-23-2025 Amylase [Catalytic activity/Vol] 66 U/L High 0-65 [facility] Comment on above: Performed at: - [facility] [place], [place] [id number] Director: Angel Ruby PhD, Phone: [phone] Glomerular filtration rate ( GFR) estimation/1.73 sq m using serum, plasma, or whole bOrdered By: Derrell Muñoz on 07-23-2025 GFR/1.73 sq M.predicted among non-blacks MDRD (S/P/Bld) [Vol rate/Area] 99 mL/min/{1.73_m2} >60 [facility] Comment on above: mL/min/1.73m2 CKD-EP I Creatinine Equation (2020) Hematocrit Auto (Bld) [Volum e fraction]Ordered By: Derrell Muñoz on 07-23-2025 Hematocrit (Bld) [Volume fraction] 37.2 % Low 40-54 [facility] Hemoglobin measurementOrdere d By: Derrell Muñoz on 07-23-2025 Hemoglobin (Bld) [Mass/Vol] 13.3 g/dL 13.0-16.5 [facility] Immature granulocytes/100 WB C Auto (Bld)Ordered By: Derrell Muñoz on 07-23-2025 Immature granulocytes/100 WBC (Bld) 0.500 % 0.0-0.9 [facility] Comment on above: IG% - Immature Granu locytes (promyelocytes, myelocytes and metamyelocytes) > 1% indicates that a LEFT SHIFT is Present. Laboratory - Chemistry and C hemistry - challengeOrdered By: Derrell Muñoz on 07-23-2025 AST [Catalytic activity/Vol] 20 U/L <38 [facility] Lipaseon 07-23-2025 Lipase [Catalytic activity/Vol] 22 U/L Normal 13-75 [facility] Comment on above: Result Comment: Elizabeth stephenson note: LIPASE revised reference range effective 23. New Lipase methodology. Expected to produce lower values than the previous assay method. NEW Reference Range: 13 - 75 U/L Performed By: #### L 500.4050, L100.0100, L501.9520, L501.5101, L501.2450 ####[facility] [address] [place], [address] Lipase measurementOrdered By : Derrell Muñoz on 07-23-2025 Lipase [Catalytic activity/Vol] 22 U/L 13-75 [facility] Comment on above: Please note:LIPASE r evised reference range effective 23. New Lipase methodology. Expected to produce lower values than the previous assay method. NEW Reference Range: 13 - 75 U/L MCV (mean corpuscular volume ) determinationOrdered By: Derrell Muñoz on 07-23-2025 MCV (RBC) [Entitic vol] 91.4 fL 80-94 [facility] Mean corpuscular hemoglobin (MCH) determinationOrdered By: Derrell Muñoz on 07-23-2025 MCH (RBC) [Entitic mass] 32.7 pg High 27.0-32.0 [facility] Mean corpuscular hemoglobin concentration (MCHC) determinationOrdered By: Derrell Muñoz on 07-23-2025 MCHC (RBC) [Mass/Vol] 35.8 g/dL 32-36 [facility] Mean platelet volume determi nationOrdered By: Derrell Muñoz on 07-23-2025 Platelet mean volume (Bld) [Entitic vol] 9.9 fL 6.2-12.0 [facility] Monocyte percentageOrdered B y: Derrell Muñoz on 07-23-2025 Monocytes/100 WBC (Bld) 6.4 % 0-10 [facility] Neutrophil percentageOrdered By: Derrell Muñoz on 07-23-2025 Neutrophils/100 WBC (Bld) 73.3 % High 47-70 [facility] Nucleated red blood cell per centageOrdered By: Derrell Muñoz on 07-23-2025 Nucleated RBC/100 WBC (Bld) [Ratio] 0 % 0-5 [facility] Platelet countOrdered By: Fareed Muñoz on 07-23-2025 Platelets (Bld) [#/Vol] 239 10*3/uL 150-450 [facility] Potassium measurement (mass/ volume)Ordered By: Derrell Muñoz on 07-23-2025 Potassium (Unsp spec) [Mass/Vol] 4.1 mmol/L 3.3-5.1 [facility] RBC Auto (Bld) [#/Vol]Ordere d By: Derrell Muñoz on 07-23-2025 RBC (Bld) [#/Vol] 4.07 10*6/uL Low 4.6-6.2 [facility] Serum creatinine measurement (mass/volume)Ordered By: Derrell Muñoz on 07-23-2025 Creatinine [Mass/Vol] 0.87 mg/dL 0.70-1.20 [facility] Serum globulin measurementOr dered By: Derrell Muñoz on 07-23-2025 Globulin (S) [Mass/Vol] 2.4 g/dL 2.2-4.2 [facility] Serum glucose measurement (m ass/volume)Ordered By: Derrell Muñoz on 07-23-2025 Glucose [Mass/Vol] 107 mg/dL High 70-99 [facility] Serum or plasma alanine diez otransferase (ALT) measurementOrdered By: Derrell Muñoz on 07-23-2025 ALT [Catalytic activity/Vol] 14 U/L <47 [facility] Serum or plasma albumin etelvina urement (mass/volume)Ordered By: Derrell Muñoz on 07-23-2025 Albumin [Mass/Vol] 4.4 g/dL 3.5-5.0 [facility] Serum or plasma albumin/glob ulin mass ratioOrdered By: Derrell Muñoz on 07-23-2025 Albumin/Globulin [Mass ratio] 1.8 {ratio} 0.9-2.4 [facility] Serum or plasma alkaline sharon sphatase measurementOrdered By: Derrell Muñoz on 07-23-2025 ALP [Catalytic activity/Vol] 54 U/L 40-129 [facility] Serum or plasma calcium etelvina urement (mass/volume)Ordered By: Derrell Muñoz on 07-23-2025 Calcium [Mass/Vol] 10.4 mg/dL 7.6-11.0 [facility] Serum or plasma urea nitroge n measurement (mass/volume)Ordered By: Derrell Muñoz on 07-23-2025 Urea nitrogen [Mass/Vol] 11 mg/dL 4-19 [facility] Sodium levelOrdered By: Derrell Muñoz on 07-23-2025 Sodium [Moles/Vol] 137 mmol/L 133-145 [facility] TSH DL <= 0.005 mIU/L QnOrde red By: Derrell Muñoz on 07-23-2025 TSH Qn 1.330 uIU/mL 0.300-4.200 [facility] Thyroid Stim Hormone (TSH)on 07-23-2025 TSH 1.330 uIU/mL Normal 0.300-4.200 [facility] Comment on above: Performed By: #### L 500.4050, L100.0100, L501.9520, L501.5101, L501.2450 ####[facility] [address] [facility] [place], [address] Total proteinOrdered By: Briseida Muñoz on 07-23-2025 Protein [Mass/Vol] 6.8 g/dL 5.9-8.4 [facility] White blood cell (WBC) count Ordered By: Derrell Muñoz on 07-23-2025 WBC (Bld) [#/Vol] 5.7 10*3/uL 4.4-11.0 [facility] Coronary Angiography CTon Coronary Angiography CT [facility] Imaging Services [address] [place] [address] 07/17/251928 MR#: [id number] Acct: [id number] Name: REGAN VASQUEZ Rep #: [id number] : 1965 60 From: Brett Her MD PCP: Dr. Derrell Muñoz MD Status:REG CLI Y Location: CT CCTA w/Cont Coronary Arteries Date of Study:: 07/17/25 HTN Coronary Calcium Scoring: High-resolution Computed Tomographic imaging of the chest was performed on [07/17/25 ], with particular attention paid to the coronary arteries. Intravenous contrast agent was administered per protocol and images reconstructed and displayed. LEFT MAIN CORONARY ARTERY: Arises from the left coronary cusp with no calcification and bifurcates the left anterior descending artery and left circumflex artery [] LEFT ANTERIOR DESCENDING CORONARY ARTERY: Multiple areas of calcification in the proximal and mid segment with moderate stenosis noted in the proximal and mid segments. Distal mild disease is noted. [] LEFT CIRCUMFLEX CORONARY ARTERY: Nondominant vessel with soft plaque noted in the midsegment and hard plaque present in a high-grade stenosis noted. Mild diffuse distal disease is present [] RIGHT CORONARY ARTERY: Dominant right coronary artery with significant plaque noted in the proximal mid and distal segments. Moderate occlusive disease is noted in the proximal and mid segments. [] THORACIC AORTA: [] PULMONARY ARTERY: [] LEFT ATRIUM/APPENDAGE: [] MITRAL VALVE: [] AORTIC VALVE: [] LEFT VENTRICLE: [] CORONARY CALCIUM SCORE: 2044 [] Findings Coronary Artery Left Main (LM): 0 Left Anterior Descending (LAD): 922 Left Circumflex (LCX): 151 Right Coronary Artery (RCA): 972 Total Agatston Score: 2,045 Percentile Rankin Calcium Scoring Interpretation: Different methods to categorize the overall amount of coronary plaque. Overall amount CAC SIS Visual of coronary plaque P1 Mild -100 <2 1-2 vessels with mild amount of plaque P2 Moderate 101-300 3-4 1-2 vessels with moderate amount, 3 vessels with mild amount of plaque P3 Severe 301-999 5-7 3 vessels with moderate amount, 1 vessel with severe amount of plaque P4 Extensive >1000 >8 2-3 vessels with severe amount of plaque Calcium Score: Extensive: 2-3 vessels w/severe amount of plaque Conclusion: Significant three-vessel atherosclerosis with likely moderate obstruction noted in the LAD and right coronary artery and high-grade mid obstruction noted in the circumflex artery. 07/17/25 193 Date Brett Her MD Cosigner Signature (if applicable): Date CC: Dr. Brett Her MD; Dr. Derrell Muñoz MD Signed Normal [facility] Limited Chest CT Cardiac Onl yon 07-17-[address] Cardiac Only [facility] Imaging Services [address] [place], [place] [id number] Limited Chest CT Cardiac Only MR#: [id number] Acct: [id number] Name: REGAN VASQUEZ Rep #: [id number] : 1965 M 60 From: Moise HOWELL: Dr. Derrell Muñoz MD Status: REG CLI Study: Limited Chest CT Cardiac Only Date of Exam: Exam# [id number] Ordering Dr: Derrell Muñoz MD PROCEDURE: LIMITED CHEST CT CARDIAC ONLY 07/17/2025 REASON FOR EXAM: UNSPECIFIED ATHEROSCLEROSIS TECHNIQUE: Procedure Code: CTCCTACHLIM Modality: CT Procedure: LIMITED CHEST CT CARDIAC ONLY One or more dose reduction techniques were used (e.g., Automated exposure control, adjustment of the mA and/or kV according to patient size, use of iterative reconstruction technique). RADIATION DOSE SUMMARY: DLP: 1606.79 mGycm COMPARISON: Chest x-ray 03/26/2022 CT/Limited Chest CT Cardiac Only IMPRESSION: Limited imaging of the lungs demonstrates no acute process. No pleural effusion or pneumothorax is seen in visualized areas. No adenopathy is noted. The visualized upper abdomen demonstrates no significant abnormality. Reading Location: [address] CC: Dr. Derrell Muñoz MD Counter Roller: Signed Normal [facility] Soft Tissue Neck WITH Contra ston 07-04-2025 Soft Tissue Neck WITH Contrast [facility] Imaging Services [address] [place] [address] Soft Tissue Neck WITH Contrast MR#: [id number] Acct: [id number] Name: REGAN VASQUEZ Rep #: [id number] : 1965 M 60 From: Allen Pacheco MD PCP: Dr. Derrell Muñoz MD Status: REG CLI Study: Soft Tissue Neck WITH Contrast Date of Exam: 0 07/04/25 Exam# [id number] Ordering Dr: Derrell Muñoz MD PROCEDURE: SOFT TISSUE NECK WITH CONTRAST 07/04/2025 REASON FOR EXAM: RIGHT NECK PAIN, RIGHT NECK FULLNESS, VOICE CHANGES TECHNIQUE: Procedure Code: CTNEW Modality: CT Procedure: SOFT TISSUE NECK WITH CONTRAST CONTRAST: Isovue 370 VOLUME: 75 mL One or more dose reduction techniques were used (e.g., Automated exposure control, adjustment of the mA and/or kV according to patient size, use of iterative reconstruction technique). RADIATION DOSE SUMMARY: CTDlvol: 17.06 mGy DLP: 549.74 mGycm COMPARISON: CT cervical spine 10/26/2018. FINDINGS: Airway: The naso pharynx is unremarkable. Asymmetric prominence of the lateral left posterior wall of the oropharynx, similar to CT cervical spine 10/26/2018. The supraglottis, glottis and infraglottic are unremarkable. Limited evaluation due to streak artifact from dental work. Salivary glands: Unremarkable. Lymph nodes: No lymphadenopathy. Thyroid: Unremarkable. Vasculature: Atherosclerotic calcifications of the carotid bulbs. Orbits: Unremarkable. Paranasal sinuses and mastoids: Clear. Lung apices: Clear. Upper mediastinum: Unremarkable. Bones: No acute bony abnormalities. CT/Soft Tissue Neck WITH Contrast IMPRESSION: Asymmetric prominence of the posterolateral left oropharynx wall. This finding is similar to CT scan cervical spine 10/26/2018 and can be due to retropharyngeal left internal carotid artery. Direct visualization is recommended to rule out mucosal lesion. Otherwise, no lymphadenopathy or other acute neck abnormalities. Reading Location: [facility] CC: Dr. Derrell Muñoz MD Counter Roller: Signed Normal [facility] CRPon 05-18-2025 C-REACTIVE PROT < 3.00 Normal 0.0-3.0 [facility] Comment on above: Order Comment: Order Date: 05/18/25Order Info: [id number] - CRPOrder Info: [id number] - TSH Performed By: #### L 501.6710, L101.9900, L501.9520 ####[facility] [address] [place], [place], [id number] Erythrocyte Sed Rateon 05-18 SED RATE 2 mm/hr Normal 0-20 [facility] Comment on above: Order Comment: Order Date: 05/18/25Order Info: [id number] - SED Performed By: #### L 501.6710, L101.9900, L501.9520 ####[facility] [address] [place], [place], [id number] Erythrocyte sedimentation ra teOrdered By: Derrell Muñoz on 05-18-2025 ESR (Bld) [Velocity] 2 mm/h 0-20 [facility] Hemoglobin A1con 05-18-2025 HbA1c (Bld) [Mass fraction] 5.5 % Normal <=5.6 [facility] Comment on above: Order Comment: Order Date: 04/30/25 Order Info: [id number] - A1C Result Comment: Norm al < 5.7 % Prediabetic 5.7 - 6.4 % Diabetic >or= 6.5 % Please note range changes. Performed By: #### L 501.9985 #### [facility] [address] [place], [address] Hemoglobin A1c percentageOrd ered By: Blane Gaspar on 05-18-2025 HbA1c (Bld) [Mass fraction] 5.5 % <5.7 [facility] Comment on above: Normal < 5.7 % Predi abetic 5.7 - 6.4 % Diabetic >or= 6.5 % Please note range changes. Serum or plasma C reactive p rotein measurement (mass/volume)Ordered By: Derrell Muñoz on 05-18-2025 CRP [Mass/Vol] mg/L 0.0-3.0 [facility] TSH DL <= 0.005 mIU/L QnOrde red By: Derrell Muñoz on 05-18-2025 TSH Qn 1.240 uIU/mL 0.300-4.200 [facility] Thyroid Stim Hormone (TSH)on 05-18-2025 TSH 1.240 uIU/mL Normal 0.300-4.200 [facility] Comment on above: Order Comment: Order Date: 05/18/25Order Info: [id number] - CRPOrder Info: [id number] - TSH Performed By: #### L 501.6710, L101.9900, L501.9520 ####[facility] [address] [place], [place], [id number] Hemoglobin A1con 04-30-2025 HbA1c (Bld) [Mass fraction] 5.4 % Normal <=5.6 [facility] Comment on above: Order Comment: VITOR Ley ADD A1C TO BLOOD DRAWN 04/27/25 PER Result Comment: Norm al < 5.7 % Prediabetic 5.7 - 6.4 % Diabetic >or= 6.5 % Please note range changes. Performed By: #### L 501.9985 ####[facility] [address] [place], [address] Hemoglobin A1c percentageOrd ered By: Blane Gaspar on 04-30-2025 HbA1c (Bld) [Mass fraction] 5.4 % <5.7 [facility] Comment on above: Normal < 5.7 % Predi abetic 5.7 - 6.4 % Diabetic >or= 6.5 % Please note range changes. Absolute lymphocyte countOrd ered By: Blane Gaspar on 04-27-2025 Lymphocytes Auto (Unsp spec) [#/Vol] 1.36 10*3/uL 0.83-4.51 [facility] Absolute neutrophil countOrd ered By: Blane Gaspar on 04-27-2025 Neutrophils (Bld) [#/Vol] 3.9 10*3/uL 2.0-7.7 [facility] Anion gap in Serum or Plasma Ordered By: Blane Gaspar on 04-27-2025 Anion gap [Moles/Vol] 11 mmol/L 5-15 [facility] Automated lymphocyte count a s percentage of total leukocytesOrdered By: Blane Gaspar on 04-27-2025 Lymphocytes/100 WBC Auto (Unsp spec) 22.8 % 19-41 [facility] BUN/creatinine ratioOrdered By: Blane Gaspar on 04-27-2025 Urea nitrogen/Creatinine [Mass ratio] 10.2 mg/mg 10-20 [facility] Basophil percentageOrdered B y: Blane Gaspar on 04-27-2025 Basophils/100 WBC (Bld) 0.8 % 0-1 [facility] Bilirubin, totalOrdered By: Blane Gaspar on 04-27-2025 Bilirubin [Mass/Vol] 0.42 mg/dL 0.00-1.30 [facility] CBC W/Diff, Automatedon 04-17 Absolute Lymph 1.36 X10 3/uL Normal 0.83-4.51 [facility] Comment on above: Order Comment: Order Date: 04/27/25 Order Info: [id number] - CBCD Performed By: #### L 500.4050, L100.0100, L500.4100, L501.9520, L501.5200 #### [facility] [address] [place], [address] Absolute Neut 3.9 X10 3/uL Normal 2.0-7.7 [facility] Comment on above: Order Comment: Order Date: 04/27/25 Order Info: [id number] - CBCD Performed By: #### L 500.4050, L100.0100, L500.4100, L501.9520, L501.5200 #### [facility] [address] [place], [address] Basophils/100 WBC (Bld) 0.8 % Normal 0-1 [facility] Comment on above: Order Comment: Order Date: 04/27/25 Order Info: [id number] - CBCD Performed By: #### L 500.4050, L100.0100, L500.4100, L501.9520, L501.5200 #### [facility] [address] [place], [address] Eosinophils/100 WBC (Bld) 3.5 % Normal 0-5 [facility] Comment on above: Order Comment: Order Date: 04/27/25 Order Info: [id number] - CBCD Performed By: #### L 500.4050, L100.0100, L500.4100, L501.9520, L501.5200 #### [facility] [address] [place], [address] Erythrocyte distribution width (RBC) [Ratio] 11.7 % Normal 11.6-14.6 [facility] Comment on above: Order Comment: Order Date: 04/27/25 Order Info: [id number] - CBCD Performed By: #### L 500.4050, L100.0100, L500.4100, L501.9520, L501.5200 #### [facility] [address] [place], [address] Hematocrit (Bld) [Volume fraction] 38.4 % Low 40-54 [facility] Comment on above: Order Comment: Order Date: 04/27/25 Order Info: [id number] - CBCD Performed By: #### L 500.4050, L100.0100, L500.4100, L501.9520, L501.5200 #### [facility] [address] [place], [address] Hemoglobin (Bld) [Mass/Vol] 13.5 g/dL Normal 13.0-16.5 [facility] Comment on above: Order Comment: Order Date: 04/27/25 Order Info: [id number] - CBCD Performed By: #### L 500.4050, L100.0100, L500.4100, L501.9520, L501.5200 #### [facility] [address] [place], [address] IG% 0.300 Normal 0.0-0.9 [facility] Comment on above: Order Comment: Order Date: 04/27/25 Order Info: [id number] - CBCD Result Comment: IG% - Immature Granulocytes (promyelocytes, myelocytes and metamyelocytes) > 1% indicates that a LEFT SHIFT is Present. Performed By: #### L 500.4050, L100.0100, L500.4100, L501.9520, L501.5200 #### [facility] [address] [place], [address] Lymphocytes/100 WBC (Bld) 22.8 % Normal 19-41 [facility] Comment on above: Order Comment: Order Date: 04/27/25 Order Info: [id number] - CBCD Performed By: #### L 500.4050, L100.0100, L500.4100, L501.9520, L501.5200 #### [facility] [address] [place], [address] MCH (RBC) [Entitic mass] 32.7 pg High 27.0-32.0 [facility] Comment on above: Order Comment: Order Date: 04/27/25 Order Info: [id number] - CBCD Performed By: #### L 500.4050, L100.0100, L500.4100, L501.9520, L501.5200 #### [facility] [address] [place], [address] MCHC (RBC) [Mass/Vol] 35.2 g/dL Normal 32-36 [facility] Comment on above: Order Comment: Order Date: 04/27/25 Order Info: [id number]- - CBCD Performed By: #### L 500.4050, L100.0100, L500.4100, L501.9520, L501.5200 #### [facility] [address] [place], [address] MCV (RBC) [Entitic vol] 93.0 fL Normal 80-94 [facility] Comment on above: Order Comment: Order Date: 04/27/25 Order Info: [id number]- - CBCD Performed By: #### L 500.4050, L100.0100, L500.4100, L501.9520, L501.5200 #### [facility] [address] [place], [address] Monocytes/100 WBC (Bld) 7.4 % Normal 0-10 [facility] Comment on above: Order Comment: Order Date: 04/27/25 Order Info: [id number]- - CBCD Performed By: #### L 500.4050, L100.0100, L500.4100, L501.9520, L501.5200 #### [facility] [address] [place], [address] Neutrophils/100 WBC (Bld) 65.2 % Normal 47-70 [facility] Comment on above: Order Comment: Order Date: 04/27/25 Order Info: [id number] - CBCD Performed By: #### L 500.4050, L100.0100, L500.4100, L501.9520, L501.5200 #### [facility] [address] [place], [address] Nucleated RBC (Bld) [#/Vol] 0 10*3/uL Normal 0-5 [facility] Comment on above: Order Comment: Order Date: 04/27/25 Order Info: [id number]- - CBCD Performed By: #### L 500.4050, L100.0100, L500.4100, L501.9520, L501.5200 #### [facility] [address] [place], [address] Platelet mean volume (Bld) [Entitic vol] 10.1 fL Normal 6.2-12.0 [facility] Comment on above: Order Comment: Order Date: 04/27/25 Order Info: [id number] - CBCD Performed By: #### L 500.4050, L100.0100, L500.4100, L501.9520, L501.5200 #### [facility] [address] [place], [address] Platelets (Bld) [#/Vol] 257 10*3/uL Normal 150-450 [facility] Comment on above: Order Comment: Order Date: 04/27/25 Order Info: [id number] - CBCD Performed By: #### L 500.4050, L100.0100, L500.4100, L501.9520, L501.5200 #### [facility] [address] [place], [address] RBC (Bld) [#/Vol] 4.13 10*6/uL Low 4.6-6.2 [facility] Comment on above: Order Comment: Order Date: 04/27/25 Order Info: [id number] - CBCD Performed By: #### L 500.4050, L100.0100, L500.4100, L501.9520, L501.5200 #### [facility] [address] [place], [place], [address] RDW SD 39.8 fl Normal 35.1-43.9 [facility] Comment on above: Order Comment: Order Date: 04/27/25 Order Info: [id number] - CBCD Performed By: #### L 500.4050, L100.0100, L500.4100, L501.9520, L501.5200 #### [facility] [address] [place], [address] WBC (Bld) [#/Vol] 6.0 10*3/uL Normal 4.4-11.0 [facility] Comment on above: Order Comment: Order Date: 04/27/25 Order Info: [id number] - CBCD Performed By: #### L 500.4050, L100.0100, L500.4100, L501.9520, L501.5200 #### [facility] [address] [place], [address] Calculated very low density lipoprotein (VLDL) cholesterol measurementOrdered By: Blane Gaspar on 04-27-2025 Calculated very low density lipoprotein (VLDL) cholesterol measurement 14 mg/dL 5-40 [facility] Carbon dioxide, total [Moles /volume] in Central venous bloodOrdered By: Blane Gaspar on 04-27-2025 CO2 [Moles/Vol] 26.4 mmol/L 21.0-32.0 [facility] Chloride assayOrdered By: Abbie Gaspar on 04-27-2025 Chloride [Moles/Vol] 96 mmol/L Low 98-108 [facility] Comprehensive Metabolic Prof ilon 04-27-2025 Albumin [Mass/Vol] 4.5 g/dL Normal 3.5-5.0 [facility] Comment on above: Order Comment: Order Date: 04/27/25Order Info: 86-1 - CMPOrder Info: [id number] - LIPIDOrder Info: [id number] - MGOrder Info: 301-3 - TSH Performed By: #### L 500.4050, L100.0100, L500.4100, L501.9520, L501.5200 ####[facility] [address] [place], [address] Albumin/Globulin [Mass ratio] 1.8 {ratio} Normal 0.9-2.4 [facility] Comment on above: Order Comment: Order Date: 04/27/25Order Info: [id number] - CMPOrder Info: [id number] - LIPIDOrder Info: [id number] - MGOrder Info: [id number] - TSH Performed By: #### L 500.4050, L100.0100, L500.4100, L501.9520, L501.5200 ####[facility] [address] [place], [address] ALK PHOS 61 U/L Normal 40-129 [facility] Comment on above: Order Comment: Order Date: 04/27/25Order Info: 785- - CMPOrder Info: [id number] - LIPIDOrder Info: [id number] - MGOrder Info: [id number] - TSH Performed By: #### L 500.4050, L100.0100, L500.4100, L501.9520, L501.5200 ####[facility] [address] [place], [address] ALT [Catalytic activity/Vol] 16 U/L Normal <=46 [facility] Comment on above: Order Comment: Order Date: 04/27/25Order Info: 86-1 - CMPOrder Info: [id number] - LIPIDOrder Info: [id number] - MGOrder Info: [id number] - TSH Performed By: #### L 500.4050, L100.0100, L500.4100, L501.9520, L501.5200 ####[facility] [address] [place], [address] AST [Catalytic activity/Vol] 20 U/L Normal <=37 [facility] Comment on above: Order Comment: Order Date: 04/27/25Order Info: 86-1 - CMPOrder Info: [id number] - LIPIDOrder Info: [id number] - MGOrder Info: [id number] - TSH Performed By: #### L 500.4050, L100.0100, L500.4100, L501.9520, L501.5200 ####[facility] [address] [place], [address] Bilirubin [Mass/Vol] 0.42 mg/dL Normal 0.00-1.30 [facility] Comment on above: Order Comment: Order Date: 04/27/25Order Info: [id number] - CMPOrder Info: [id number] - LIPIDOrder Info: [id number] - MGOrder Info: [id number] - TSH Performed By: #### L 500.4050, L100.0100, L500.4100, L501.9520, L501.5200 ####[facility] [address] [place], [address] BUN/CRE 10.2 RATIO Normal 10-20 [facility] Comment on above: Order Comment: Order Date: 04/27/25Order Info: [id number] - CMPOrder Info: [id number] - LIPIDOrder Info: [id number] - MGOrder Info: [id number] - TSH Performed By: #### L 500.4050, L100.0100, L500.4100, L501.9520, L501.5200 ####[facility] [address] [place], [address] Calcium [Mass/Vol] 9.5 mg/dL Normal 7.6-11.0 [facility] Comment on above: Order Comment: Order Date: 04/27/25Order Info: 86-1 - CMPOrder Info: [id number] - LIPIDOrder Info: [id number] - MGOrder Info: [id number] - TSH Performed By: #### L 500.4050, L100.0100, L500.4100, L501.9520, L501.5200 ####[facility] [address] [place], [address] Chloride [Moles/Vol] 96 mmol/L Low 98-108 [facility] Comment on above: Order Comment: Order Date: 04/27/25Order Info: 86-1 - CMPOrder Info: [id number] - LIPIDOrder Info: [id number] - MGOrder Info: [id number] - TSH Performed By: #### L 500.4050, L100.0100, L500.4100, L501.9520, L501.5200 ####[facility] [address] [place], [address] CO2 [Moles/Vol] 26.4 mmol/L Normal 21.0-32.0 [facility] Comment on above: Order Comment: Order Date: 04/27/25Order Info: 86-1 - CMPOrder Info: [id number] - LIPIDOrder Info: [id number] - MGOrder Info: 3 - TSH Performed By: #### L 500.4050, L100.0100, L500.4100, L501.9520, L501.5200 ####[facility] [address] [place], [address] Creatinine [Mass/Vol] 0.84 mg/dL Normal 0.70-1.20 [facility] Comment on above: Order Comment: Order Date: 04/27/25Order Info: 86-1 - CMPOrder Info: [id number] - LIPIDOrder Info: [id number] - MGOrder Info: [id number] - TSH Performed By: #### L 500.4050, L100.0100, L500.4100, L501.9520, L501.5200 ####[facility] [address] [place], [address] GAP 11 Normal 5-15 [facility] Comment on above: Order Comment: Order Date: 04/27/25Order Info: [id number] - CMPOrder Info: [id number] - LIPIDOrder Info: [id number] - MGOrder Info: [id number] - TSH Performed By: #### L 500.4050, L100.0100, L500.4100, L501.9520, L501.5200 ####[facility] [address] [place], [address] GFR/1.73 sq M.predicted among non-blacks MDRD (S/P/Bld) [Vol rate/Area] 100 mL/min/{1.73_m2} Normal >60 [facility] Comment on above: Order Comment: Order Date: 04/27/25Order Info: [id number] - CMPOrder Info: [id number] - LIPIDOrder Info: [id number] - MGOrder Info: [id number] - TSH Result Comment: mL/m in/1.73m2 CKD-EPI Creatinine Equation (2020) Performed By: #### L 500.4050, L100.0100, L500.4100, L501.9520, L501.5200 ####[facility] [address] [place], [address] Globulin (S) [Mass/Vol] 2.5 g/dL Normal 2.2-4.2 [facility] Comment on above: Order Comment: Order Date: 04/27/25Order Info: 785- - CMPOrder Info: [id number] - LIPIDOrder Info: [id number] - MGOrder Info: [id number] - TSH Performed By: #### L 500.4050, L100.0100, L500.4100, L501.9520, L501.5200 ####[facility] [address] [place], [address] Glucose [Mass/Vol] 100 mg/dL High 70-99 [facility] Comment on above: Order Comment: Order Date: 04/27/25Order Info: [id number] - CMPOrder Info: [id number] - LIPIDOrder Info: [id number] - MGOrder Info: [id number] - TSH Performed By: #### L 500.4050, L100.0100, L500.4100, L501.9520, L501.5200 ####[facility] [address] [place], [address] Potassium [Moles/Vol] 4.0 mmol/L Normal 3.3-5.1 [facility] Comment on above: Order Comment: Order Date: 04/27/25Order Info: 785- - CMPOrder Info: - LIPIDOrder Info: [id number] - MGOrder Info: [id number] - TSH Performed By: #### L 500.4050, L100.0100, L500.4100, L501.9520, L501.5200 ####[facility] [address] [place], [address] Sodium [Moles/Vol] 134 mmol/L Normal 133-145 [facility] Comment on above: Order Comment: Order Date: 04/27/25Order Info: 785- - CMPOrder Info: [id number] - LIPIDOrder Info: [id number] - MGOrder Info: [id number] - TSH Performed By: #### L 500.4050, L100.0100, L500.4100, L501.9520, L501.5200 ####[facility] [address] [place], [address] T PROT 6.9 g/dL Normal 5.9-8.4 [facility] Comment on above: Order Comment: Order Date: 04/27/25Order Info: [id number]- - CMPOrder Info: [id number] - LIPIDOrder Info: [id number] - MGOrder Info: [id number] - TSH Performed By: #### L 500.4050, L100.0100, L500.4100, L501.9520, L501.5200 ####[facility] [address] [place], [place], [address] Urea nitrogen [Mass/Vol] 9 mg/dL Normal 4-19 [facility] Comment on above: Order Comment: Order Date: 04/27/25Order Info: [id number] - CMPOrder Info: [id number] - LIPIDOrder Info: [id number] - MGOrder Info: [id number] - TSH Performed By: #### L 500.4050, L100.0100, L500.4100, L501.9520, L501.5200 ####[facility] [address] [place], [place], [address] Eosinophil percentageOrdered By: Blane Gaspar on 04-27-2025 Eosinophils/100 WBC (Bld) 3.5 % 0-5 [facility] Erythrocyte distribution wid th ratioOrdered By: Blane Gaspar on 04-27-2025 Erythrocyte distribution width (RBC) [Ratio] 11.7 % 11.6-14.6 [facility] Erythrocyte distribution wid th standard deviationOrdered By: Blane Gaspar on 04-27-2025 Erythrocyte distribution width (RBC) [Ratio] 39.8 fl 35.1-43.9 [facility] Glomerular filtration rate ( GFR) estimation/1.73 sq m using serum, plasma, or whole bOrdered By: Blane Gaspar on 04-27-2025 GFR/1.73 sq M.predicted among non-blacks MDRD (S/P/Bld) [Vol rate/Area] 100 mL/min/{1.73_m2} >60 [facility] Comment on above: mL/min/1.73m2 CKD-EP I Creatinine Equation (2020) Hematocrit Auto (Bld) [Volum e fraction]Ordered By: Blane Gaspar on 04-27-2025 Hematocrit (Bld) [Volume fraction] 38.4 % Low 40-54 [facility] Hemoglobin measurementOrdere d By: Blane Gaspar on 04-27-2025 Hemoglobin (Bld) [Mass/Vol] 13.5 g/dL 13.0-16.5 [facility] Immature granulocytes/100 WB C Auto (Bld)Ordered By: Blane Gaspar on 04-27-2025 Immature granulocytes/100 WBC (Bld) 0.300 % 0.0-0.9 [facility] Comment on above: IG% - Immature Granu locytes (promyelocytes, myelocytes and metamyelocytes) > 1% indicates that a LEFT SHIFT is Present. LDL calc ser/plasOrdered By: Blane Gaspar on 04-27-2025 Cholesterol in LDL [Mass/Vol] 120 mg/dL [facility] Comment on above: Sfxswwcyyt=169-485 m g/dL & Higher Dlgy=986 mg/dL or greater Laboratory - Chemistry and C hemistry - challengeOrdered By: Blane Gaspar on 04-27-2025 AST [Catalytic activity/Vol] 20 U/L <38 [facility] Lipid Profileon 04-27-2025 CHOL:HDL 2.63 Normal [facility] Comment on above: Order Comment: Order Date: 04/27/25Order Info: [id number] - CMPOrder Info: [id number] - LIPIDOrder Info: [id number] - MGOrder Info: [id number] - TSH Performed By: #### L 500.4050, L100.0100, L500.4100, L501.9520, L501.5200 ####[facility] [address] [place], [address] Cholesterol [Mass/Vol] 215 mg/dL High <=200 [facility] Comment on above: Order Comment: Order Date: 04/27/25Order Info: [id number] - CMPOrder Info: [id number] - LIPIDOrder Info: [id number] - MGOrder Info: [id number] - TSH Result Comment: Chol esterol level, Desirable <200 mg/dL Borderline high cholesterol 200-239 mg/dL High cholesterol >=240 mg/dL Recommendations of the NCEP Adult Treatment Panel for the following risk-cutoff thresholds for the [place] population. Performed By: #### L 500.4050, L100.0100, L500.4100, L501.9520, L501.5200 ####[facility] [address] [place], [address] Cholesterol in HDL [Mass/Vol] 82 mg/dL Normal [facility] Comment on above: Order Comment: Order Date: 04/27/25Order Info: 07- - CMPOrder Info: - LIPIDOrder Info: [id number] - MGOrder Info: [id number] - TSH Result Comment: Nataliya onal Cholesterol Education Program (NCEP) guidelines: <40 mg/dL: Low HDL-cholesterol (major risk factor for CHD) >= 60 mg/dL: High HDL-cholesterol (negative risk factor for CHD) HDL-cholesterol is affected by a number of factors, e.g. smoking, exercise, hormones, sex and age. Performed By: #### L 500.4050, L100.0100, L500.4100, L501.9520, L501.5200 ####[facility] [address] [place], [place], [phone]) Cholesterol in LDL [Mass/Vol] 120 mg/dL Normal [facility] Comment on above: Order Comment: Order Date: 04/27/25Order Info: [id number] - CMPOrder Info: - LIPIDOrder Info: - MGOrder Info: [id number] - TSH Result Comment: Bord toiyge=565-794 mg/dL Higher Yqxm=602 mg/dL or greater Performed By: #### L 500.4050, L100.0100, L500.4100, L501.9520, L501.5200 ####[facility] [address] [place], [place], [phone](222) Cholesterol in VLDL [Mass/Vol] 14 mg/dL Normal 5-40 [facility] Comment on above: Order Comment: Order Date: 04/27/25Order Info: 07 - CMPOrder Info: - LIPIDOrder Info: [id number] - MGOrder Info: 3 - TSH Performed By: #### L 500.4050, L100.0100, L500.4100, L501.9520, L501.5200 ####[facility] [address] [place], [place], [phone]) Triglyceride [Mass/Vol] 69 mg/dL Normal [facility] Comment on above: Order Comment: Order Date: 04/27/25Order Info: [id number] - CMPOrder Info: [id number] - LIPIDOrder Info: - MGOrder Info: [id number] - TSH Result Comment: The drugs N-Acetylcysteine and Metamizole may falsely depress this assay. Normal range: <150 mg/dL Borderline High: 150-199 mg/dL High: 200-499 mg/dL Very High: >500 mg/dL Performed By: #### L 500.4050, L100.0100, L500.4100, L501.9520, L501.5200 ####[facility] [address] [place], [place], [address] MCV (mean corpuscular volume ) determinationOrdered By: Blane Gaspar on 04-27-2025 MCV (RBC) [Entitic vol] 93.0 fL 80-94 [facility] Magnesiumon 04-27-2025 Magnesium [Mass/Vol] 1.9 mg/dL Normal 1.5-2.2 [facility] Comment on above: Order Comment: Order Date: 04/27/25Order Info: 07 - CMPOrder Info: [id number] - LIPIDOrder Info: - MGOrder Info: [id number] - TSH Performed By: #### L 500.4050, L100.0100, L500.4100, L501.9520, L501.5200 ####[facility] [address] [place], [place], [address] Magnesium measurement (mass/ volume)Ordered By: Blane Gaspar on 04-27-2025 Magnesium (Unsp spec) [Mass/Vol] 1.9 mg/dL 1.5-2.2 [facility] Mean corpuscular hemoglobin (MCH) determinationOrdered By: Blane Gaspar on 04-27-2025 MCH (RBC) [Entitic mass] 32.7 pg High 27.0-32.0 [facility] Mean corpuscular hemoglobin concentration (MCHC) determinationOrdered By: Blane Gaspar on 04-27-2025 MCHC (RBC) [Mass/Vol] 35.2 g/dL 32-36 [facility] Mean platelet volume determi nationOrdered By: Blane Gaspar on 04-27-2025 Platelet mean volume (Bld) [Entitic vol] 10.1 fL 6.2-12.0 [facility] Monocyte percentageOrdered B y: Blane Gaspar on 04-27-2025 Monocytes/100 WBC (Bld) 7.4 % 0-10 [facility] Neutrophil percentageOrdered By: Blane Gaspar on 04-27-2025 Neutrophils/100 WBC (Bld) 65.2 % 47-70 [facility] Nucleated red blood cell per centageOrdered By: Blane Gaspar on 04-27-2025 Nucleated RBC/100 WBC (Bld) [Ratio] 0 % 0-5 [facility] Platelet countOrdered By: Abbie Gaspar on 04-27-2025 Platelets (Bld) [#/Vol] 257 10*3/uL 150-450 [facility] Potassium measurement (mass/ volume)Ordered By: Blane Gaspar on 04-27-2025 Potassium (Unsp spec) [Mass/Vol] 4.0 mmol/L 3.3-5.1 [facility] RBC Auto (Bld) [#/Vol]Ordere d By: Blane Gaspar on 04-27-2025 RBC (Bld) [#/Vol] 4.13 10*6/uL Low 4.6-6.2 [facility] Screening total cholesterol/ high density lipoprotein (HDL) cholesterol ratioOrdered By: Blane Gaspar on 04-27-2025 Cholesterol.total/Choles terol in HDL [Mass ratio] 2.63 {ratio} [facility] Serum creatinine measurement (mass/volume)Ordered By: Blane Gaspar on 04-27-2025 Creatinine [Mass/Vol] 0.84 mg/dL 0.70-1.20 [facility] Serum globulin measurementOr dered By: Blane Gaspar on 04-27-2025 Globulin (S) [Mass/Vol] 2.5 g/dL 2.2-4.2 [facility] Serum glucose measurement (m ass/volume)Ordered By: Blane Gaspar on 04-27-2025 Glucose [Mass/Vol] 100 mg/dL High 70-99 [facility] Serum or plasma alanine diez otransferase (ALT) measurementOrdered By: Blane Gaspar on 04-27-2025 ALT [Catalytic activity/Vol] 16 U/L <47 [facility] Serum or plasma albumin etelvina urement (mass/volume)Ordered By: Blane Gaspar on 04-27-2025 Albumin [Mass/Vol] 4.5 g/dL 3.5-5.0 [facility] Serum or plasma albumin/glob ulin mass ratioOrdered By: Blane Gaspar on 04-27-2025 Albumin/Globulin [Mass ratio] 1.8 {ratio} 0.9-2.4 [facility] Serum or plasma alkaline sharon sphatase measurementOrdered By: Blane Gaspar on 04-27-2025 ALP [Catalytic activity/Vol] 61 U/L 40-129 [facility] Serum or plasma calcium etelvina urement (mass/volume)Ordered By: Blane Gaspar on 04-27-2025 Calcium [Mass/Vol] 9.5 mg/dL 7.6-11.0 [facility] Serum or plasma cholesterol in HDL measurement (mass/volume)Ordered By: Blane Gaspar on 04-27-2025 Cholesterol in HDL [Mass/Vol] 82 mg/dL >40 [facility] Comment on above: National Cholesterol Education Program (NCEP) guidelines:<40 mg/dL: Low HDL-cholesterol (major risk factor for CHD)>= 60 mg/dL: High HDL-cholesterol (negative risk factor for CHD)HDL-cholesterol is affected by a number of factors, e.g. smoking, exercise, hormones, sex and age. Serum or plasma cholesterol measurement (mass/volume)Ordered By: Blane Gaspar on 04-27-2025 Cholesterol [Mass/Vol] 215 mg/dL High <201 [facility] Comment on above: Cholesterol level, D esirable <200 mg/dLBorderline high cholesterol 200-239 mg/dLHigh cholesterol >=240 mg/dLRecommendations of the NCEP Adult Treatment Panel for the following risk-cutoff thresholds for the [place] population. Serum or plasma urea nitroge n measurement (mass/volume)Ordered By: Blane Gaspar on 04-27-2025 Urea nitrogen [Mass/Vol] 9 mg/dL 4-19 [facility] Shoulder min 2 Viewson 04-27 Shoulder min 2 Views [facility] Services [address] [place] [address] Shoulder min 2 Views MR#: [id number] Acct: [id number] Name: REGAN VASQUEZ Rep #: [id number] : 1965 M 60 From: Zak Noriega MD PCP: Dr. Derrell Muñoz MD Status: REG CLI Study: Shoulder min 2 Views Date of Exam: 04/27/25 Exam# [id number] Ordering Dr: Blane Gaspar MD EXAM: XR Right Shoulder Complete, 2 or More Views CLINICAL INDICATION: PAIN TECHNIQUE: Two or more views of the right shoulder. COMPARISON: No relevant prior studies available. FINDINGS: BONES/JOINTS: Mild degenerative changes of the acromioclavicular and glenohumeral joints. No acute fracture. No dislocation. SOFT TISSUES: Unremarkable. RAD/Shoulder min 2 Views IMPRESSION: Degenerative changes as above. Reading Location: [facility] CC: Dr. Derrell Muñoz MD; Dr. Blane Gaspar MD Counter Roller: Signed Normal [facility] Sodium levelOrdered By: Blane Gaspar on 04-27-2025 Sodium [Moles/Vol] 134 mmol/L 133-145 [facility] TSH DL <= 0.005 mIU/L QnOrde red By: Blane Gaspar on 04-27-2025 TSH Qn 1.320 uIU/mL 0.300-4.200 [facility] Thyroid Stim Hormone (TSH)on 04-27-2025 TSH 1.320 uIU/mL Normal 0.300-4.200 [facility] Comment on above: Order Comment: Order Date: 04/27/25Order Info: [id number] - CMPOrder Info: [id number] - LIPIDOrder Info: [id number] - MGOrder Info: [id number] - TSH Performed By: #### L 500.4050, L100.0100, L500.4100, L501.9520, L501.5200 ####[facility] [address] [place], [address] Total proteinOrdered By: Nemesio Gaspar on 04-27-2025 Protein [Mass/Vol] 6.9 g/dL 5.9-8.4 [facility] Triglycerides measurementOrd ered By: Blane Gaspar on 04-27-2025 Triglyceride [Mass/Vol] 69 mg/dL <199 [facility] Comment on above: The drugs N-Acetylcy steine and Metamizole may falsely depress this assay. Normal range: <150 mg/dLBorderline High: 150-199 mg/dLHigh: 200-499 mg/dLVery High: >500 mg/dL White blood cell (WBC) count Ordered By: Blane Gaspar on 04-27-2025 WBC (Bld) [#/Vol] 6.0 10*3/uL 4.4-11.0 [facility] ([id number]) 1965 M Date Time Provider Department 04/10/25 [facility] During your visit today, we recorded the following information about you: Rex Diggs 04/10/2025 10:04 AM Signed Type of record received: Office Visit Notes and Other Records received from: [facility] Records received via: Faxed Records scanned into [employer]: Yes Records have been forwarded to: Dr. Hill Allergies As of Date: 04/10/2025 (No Known Allergies) Date Reviewed: 04/06/2025 Reviewed by: Deb Saleh MA - Fully Assessed Reason for Visit: Received Outside Medical Records [1363] Prescriptions as of 04/18/2025 - lamoTRIgine (LAMICTAL) [...] (VITAMIN B-12 ORAL) Take by mouth. - losartan-hydroCHLOROt hiazide (HYZAAR) 50-12.5 mg per tablet Take 1 [...] Encounter Status:Closed by REX DIGGS on 04/18/25 [facility] Zulema 04-06-2025 [facility] Office Visit ([facility] ) REGAN VASQUEZ ([id number]) 1965 M Date Time Provider Department 04/06/25 11:30 AM [facility] During your visit today, we recorded the following information about you: Pulse Blood pressure Weight Height 77/minute 123/76 101.9 kg 1.854 m Demetra Hill MD 04/06/2025 2:50 PM Signed FOLLOW UP NOTE Subjective Regan Vasquez is a 59 year old male who [...] HPI Current Issues - Had 8 seizures Hwk-uuzp-ymc. 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 losartan-hydroCHLOROt hiazide (HYZAAR) 50-12.5 mg per tablet Take 1 [...] No nystagmus. Visual velez are full to confront (more content not included)... Normal [facility] Lamotrigine (Lamictal) Level on 04-03-2025 LAMOTRIGINE 8.0 ug/mL Normal 2.0-20.0 [facility] Comment on above: Result Comment: Dete ction Limit = 1.0 Performed at: - [facility] [id number] [employer]ence [employer] Teacher: Quinn Barnes MD, Phone: [phone] Performed By: #### L 500.4050, L3300.4400, L100.0100 #### [facility] [place], [address] Absolute lymphocyte countOrd ered By: Derrell Leon on 2025 Lymphocytes Auto (Unsp spec) [#/Vol] 0.98 10*3/uL 0.83-4.51 [facility] Absolute neutrophil countOrd ered By: Derrell Leon on 2025 Neutrophils (Bld) [#/Vol] 4.4 10*3/uL 2.0-7.7 [facility] Anion gap in Serum or Plasma Ordered By: Derrell Leon on 2025 Anion gap [Moles/Vol] 14 mmol/L 5-15 [facility] Automated lymphocyte count a s percentage of total leukocytesOrdered By: Derrell Leon on 2025 Lymphocytes/100 WBC Auto (Unsp spec) 16.6 % Low 19-41 [facility] BUN/creatinine ratioOrdered By: Derrell Leon on 2025 Urea nitrogen/Creatinine [Mass ratio] 12.2 mg/mg 10-20 [facility] [facility] Basophil percentageOrdered B y: Derrell Leon on 2025 Basophils/100 WBC (Bld) 0.7 % 0-1 [facility] Bilirubin, totalOrdered By: Derrell Leon on 2025 Bilirubin [Mass/Vol] 0.48 mg/dL 0.00-1.30 [facility] Brain/Head without Contrasto n 2025 Brain/Head without Contrast [facility] Imaging Services [address] [place], [place] [address] Brain/Head without Contrast MR#: [id number] Acct: [id number] Name: REGAN VASQUEZ Rep #: [id number] : 1965 M 60 From: Low mishra MD PCP: Dr. Derrell Muñoz MD Status: REG ER Study: Brain/Head without Contrast Date of Exam: 03/18 12/12 Exam# [id number] Ordering Dr: Derrell Leon DO PROCEDURE: BRAIN/HEAD WITHOUT CONTRAST 2025 REASON FOR EXAM: SEIZURE TECHNIQUE: Head CT without intravenous contrast. Coronal and Sagittal reconstruction series were provided. One or more dose reduction techniques were used (e.g., Automated exposure control, adjustment of the mA and/or kV according to patient size, use of iterative reconstruction technique. RADIATION DOSE SUMMARY: CTDlvol: 44.99 mGy DLP: 812.98 mGycm COMPARISON: None FINDINGS: Brain: Within normal limits for age CSF Spaces: Mild generalized cerebral atrophy Sinuses/Mastoids: Clear at visualized levels Bones: CT/Brain/Head without Contrast IMPRESSION: NO ACUTE FINDINGS Reading Location: [place] [address] CC: Dr. Derrell Leon DO; Dr. Derrell Muñoz MD Counter Roller: Signed Normal [facility] CBC W/Diff, Automatedon 03-18 Absolute Lymph 0.98 X10 3/uL Normal 0.83-4.51 [facility] Comment on above: Performed By: #### L 500.4050, L3300.4400, L100.0100 #### [facility] [address] [place], [place], [id number] Absolute Neut 4.4 X10 3/uL Normal 2.0-7.7 [facility] Comment on above: Performed By: #### L 500.4050, L3300.4400, L100.0100 #### [facility] [address] [place], [address] Basophils/100 WBC (Bld) 0.7 % Normal 0-1 [facility] Comment on above: Performed By: #### L 500.4050, L3300.4400, L100.0100 #### [facility] [address] [place], [address] Eosinophils/100 WBC (Bld) 1.4 % Normal 0-5 [facility] Comment on above: Performed By: #### L 500.4050, L3300.4400, L100.0100 #### [facility] [address] [place], [address] Erythrocyte distribution width (RBC) [Ratio] 11.9 % Normal 11.6-14.6 [facility] Comment on above: Performed By: #### L 500.4050, L3300.4400, L100.0100 #### [facility] [address] [place], [address] Hematocrit (Bld) [Volume fraction] 37.4 % Low 40-54 [facility] Comment on above: Performed By: #### L 500.4050, L3300.4400, L100.0100 #### [facility] [address] [place], [address] Hemoglobin (Bld) [Mass/Vol] 13.5 g/dL Normal 13.0-16.5 [facility] Comment on above: Performed By: #### L 500.4050, L3300.4400, L100.0100 #### [facility] [address] [place], [address] IG% 0.500 Normal 0.0-0.9 [facility] Comment on above: Result Comment: IG% - Immature Granulocytes (promyelocytes, myelocytes and metamyelocytes) > 1% indicates that a LEFT SHIFT is Present. Performed By: #### L 500.4050, L3300.4400, L100.0100 #### [facility] [address] [place], [address] Lymphocytes/100 WBC (Bld) 16.6 % Low 19-41 [facility] Comment on above: Performed By: #### L 500.4050, L3300.4400, L100.0100 #### [facility] [address] [place], [address] MCH (RBC) [Entitic mass] 33.2 pg High 27.0-32.0 [facility] Comment on above: Performed By: #### L 500.4050, L3300.4400, L100.0100 #### [facility] [address] [place], [address] MCHC (RBC) [Mass/Vol] 36.1 g/dL High 32-36 [facility] Comment on above: Performed By: #### L 500.4050, L3300.4400, L100.0100 #### [facility] [address] [place], [address] MCV (RBC) [Entitic vol] 91.9 fL Normal 80-94 [facility] Comment on above: Performed By: #### L 500.4050, L3300.4400, L100.0100 #### [facility] [address] [place], [address] Monocytes/100 WBC (Bld) 6.1 % Normal 0-10 [facility] Comment on above: Performed By: #### L 500.4050, L3300.4400, L100.0100 #### [facility] [address] [place], [address] Neutrophils/100 WBC (Bld) 74.7 % High 47-70 [facility] Comment on above: Performed By: #### L 500.4050, L3300.4400, L100.0100 #### [facility] [address] [place], [address] Nucleated RBC (Bld) [#/Vol] 0 10*3/uL Normal 0-5 [facility] Comment on above: Performed By: #### L 500.4050, L3300.4400, L100.0100 #### [facility] [address] [place], [address] Platelet mean volume (Bld) [Entitic vol] 9.8 fL Normal 6.2-12.0 [facility] Comment on above: Performed By: #### L 500.4050, L3300.4400, L100.0100 #### [facility] [address] [place], [address] Platelets (Bld) [#/Vol] 283 10*3/uL Normal 150-450 [facility] Comment on above: Performed By: #### L 500.4050, L3300.4400, L100.0100 #### [facility] [address] [place], [address] RBC (Bld) [#/Vol] 4.07 10*6/uL Low 4.6-6.2 [facility] Comment on above: Performed By: #### L 500.4050, L3300.4400, L100.0100 #### [facility] [address] [place], [address] RDW SD 39.8 fl Normal 35.1-43.9 [facility] Comment on above: Performed By: #### L 500.4050, L3300.4400, L100.0100 #### [facility] [address] [place], [address] WBC (Bld) [#/Vol] 5.9 10*3/uL Normal 4.4-11.0 [facility] Comment on above: Performed By: #### L 500.4050, L3300.4400, L100.0100 #### [facility] [address] [place], [address] [facility] ([facility]) REGAN VASQUEZ ([id number]) 1965 M Date Time Provider Department 03/29/25 [place] During your visit today, we recorded the following information about you: Jh Micki 2025 1:53 PM Signed Pts Emelia called in to let us know the [...] he goes, I also sent him a YOOWALK message with this information, as well as his next neuro appointment information. Vivienne Ferguson RN 2025 2:56 PM Signed TW agrees that instruction to go to ER is best. SUELLEN Vergara, RN, BA Allergies As of Date: 2025 (No Known Allergies) Date Reviewed: 02/12/2025 Reviewed by: Kim Dinero MA - Fully Assessed Reason for Visit: Patient Question [4055] Prescriptions as of 2025 - lamoTRIgine (LAMICTAL) [...] (VITAMIN B-12 ORAL) Take by mouth. - losartan-hydroCHLOROt hiazide (HYZAAR) 50-12.5 mg per tablet Take 1 [...] Date: 2025 (None) Encounter Status:Closed by VIVIENNE FERGUSON on 03/29/25 Normal [facility] Carbon dioxide, total [Moles /volume] in Central venous bloodOrdered By: Derrell Leon on 2025 CO2 [Moles/Vol] 22.4 mmol/L 21.0-32.0 [facility] Chloride assayOrdered By: Fareed Leon on 2025 Chloride [Moles/Vol] 97 mmol/L Low 98-108 [facility] Comprehensive Metabolic Prof ilon 2025 Albumin [Mass/Vol] 4.5 g/dL Normal 3.5-5.0 [facility] Comment on above: Performed By: #### L 500.4050, L3300.4400, L100.0100 #### [facility] [address] [place], [address] Albumin/Globulin [Mass ratio] 1.6 {ratio} Normal 0.9-2.4 [facility] Comment on above: Performed By: #### L 500.4050, L3300.4400, L100.0100 #### [facility] [address] [place], [address] ALK PHOS 60 U/L Normal 40-129 [facility] Comment on above: Performed By: #### L 500.4050, L3300.4400, L100.0100 #### [facility] [address] [place], [address] ALT [Catalytic activity/Vol] 15 U/L Normal <=46 [facility] Comment on above: Performed By: #### L 500.4050, L3300.4400, L100.0100 #### [facility] [address] [place], [address] AST [Catalytic activity/Vol] 22 U/L Normal <=37 [facility] Comment on above: Performed By: #### L 500.4050, L3300.4400, L100.0100 #### [facility] [address] [place], [address] Bilirubin [Mass/Vol] 0.48 mg/dL Normal 0.00-1.30 [facility] Comment on above: Performed By: #### L 500.4050, L3300.4400, L100.0100 #### [facility] [address] [place], [address] BUN/CRE 12.2 RATIO Normal 10-20 [facility] Comment on above: Performed By: #### L 500.4050, L3300.4400, L100.0100 #### [facility] [address] [place], [address] Calcium [Mass/Vol] 9.5 mg/dL Normal 7.6-11.0 [facility] Comment on above: Performed By: #### L 500.4050, L3300.4400, L100.0100 #### [facility] [address] [place], [address] Chloride [Moles/Vol] 97 mmol/L Low 98-108 [facility] Comment on above: Performed By: #### L 500.4050, L3300.4400, L100.0100 #### [facility] [address] [place], [address] CO2 [Moles/Vol] 22.4 mmol/L Normal 21.0-32.0 [facility] Comment on above: Performed By: #### L 500.4050, L3300.4400, L100.0100 #### [facility] [address] [place], [address] Creatinine [Mass/Vol] 0.89 mg/dL Normal 0.70-1.20 [facility] Comment on above: Performed By: #### L 500.4050, L3300.4400, L100.0100 #### [facility] [address] [place], [address] ECRCL 114.22 ml/min Normal 50-250 [facility] Comment on above: Performed By: #### L 500.4050, L3300.4400, L100.0100 #### [facility] [address] [place], [address] GAP 14 Normal 5-15 [facility] Comment on above: Performed By: #### L 500.4050, L3300.4400, L100.0100 #### [facility] [address] [place], [address] GFR/1.73 sq M.predicted among non-blacks MDRD (S/P/Bld) [Vol rate/Area] 99 mL/min/{1.73_m2} Normal >60 [facility] Comment on above: Result Comment: mL/m in/1.73m2 CKD-EPI Creatinine Equation (2020) Performed By: #### L 500.4050, L3300.4400, L100.0100 #### [facility] [address] [place], [address] Globulin (S) [Mass/Vol] 2.7 g/dL Normal 2.2-4.2 [facility] Comment on above: Performed By: #### L 500.4050, L3300.4400, L100.0100 #### [facility] [address] [place], [address] Glucose [Mass/Vol] 113 mg/dL High 70-99 [facility] Comment on above: Performed By: #### L 500.4050, L3300.4400, L100.0100 #### [facility] [address] [place], [address] Potassium [Moles/Vol] 3.5 mmol/L Normal 3.3-5.1 [facility] Comment on above: Performed By: #### L 500.4050, L3300.4400, L100.0100 #### [facility] [address] [place], [address] Sodium [Moles/Vol] 133 mmol/L Normal 133-145 [facility] Comment on above: Performed By: #### L 500.4050, L3300.4400, L100.0100 #### [facility] [address] [place], [address] T PROT 7.2 g/dL Normal 5.9-8.4 [facility] Comment on above: Performed By: #### L 500.4050, L3300.4400, L100.0100 #### [facility] [address] [place], [address] Urea nitrogen [Mass/Vol] 11 mg/dL Normal 4-19 [facility] Comment on above: Performed By: #### L 500.4050, L3300.4400, L100.0100 #### [facility] [address] [place], [address] Emergency Department Summary on 2025 Emergency Department Summary [facility] Medical Records Department [address] [place] [address] Emergency Department Summary 03/29/25 MR#: [id number] Acct: [id number] Name: REGAN VASQUEZ Rep #: [id number] : 1965 60 From: Derrell Leon DO PCP: Dr. Derrell Muñoz MD Status:DEP ER Location: ED HPI History of Present Illness Chief Complaint: Seizure Informant: patient Onset/Context/Timing Onset: Days (3) Context: Sudden Onset Timing: Intermittent Quality: Zoned out Location: Generalized Worsened by: Nothing Relieved by: Nothing Narrative Narrative: Patient presents with 3 seizures per day for the last 3 days. Patient states his seizures are generalized but are absence type. Patient states he zones out for few minutes. Patient states he feels weak all over after that. Patient states nothing makes it better nothing makes it worse. Patient is on lamotrigine for his seizures. Patient states he has been compliant with this. Patient denies any loss of bowel or bladder control. Patient admits to a mild headache. Patient states it is mainly over the right temporal area. Patient states his pain radiates into his neck. [facility] Medical History Wears glasses Depression Alcohol use Marijuana use Prostate disease High cholesterol Back pain Seizures History of ulceration Heartburn Smoker History of pain when walking Cardiology follow-up encounter Essential (primary) hypertension GERD (gastroesophageal reflux disease) Smoker Chest pain Hypertension Depression Seizure disorder Home Medications ???Medication ???Instructions ???Recorded ???Last Taken ???Type ezetimibe 10 mg tablet 10 mg PO DAILY cholesterol 7 04/06/21 History lamotrigine 100 mg tablet 275 mg PO BID seizure 02/22/17 History (Lamictal) simvastatin 40 mg tablet 40 mg PO QHS cholesterol 02/22/17 04/06/21 History aspirin 81 mg tablet,delayed 81 mg PO QODAY health maintenance 04/07/21 04/06/21 History release Held on 05/14/21. Instructions: Resume on 05/28/21. losartan 50 mg-hydrochlorothiazid e 1 tab PO DAILY blood pressure 04/07/21 History 12.5 mg tablet Allergy/AdvReac Type Severity Reaction Status Date / Time No Known Allergies Allergy Verified 03/29/25 14:27 Family History Father CAD (coronary artery disease) Other Heart disease Surgical History Hx of colonoscopy Hx of hernia repair History of left heart catheterization (04/08/21) History of herniorrhaphy Social History household members: significant other history of recent travel: No sexually active: Yes Smoking Status: Current every day smoker tobacco type: cigarettes alcohol intake: current alcohol intake frequency: a few times a month ROS ROS ED Constitutional Constitutional ED: Denies chills or fever(s) Eyes Eyes: Denies blurry vision or change in vision ENT ENT ED: Denies rhinorrhea or sore throat Cardiovascular Cardiovascular: Denies chest pain or palpitations Respiratory/Chest Respiratory/Chest: Denies cough or dyspnea Gastrointestinal Gastrointestinal: Denies nausea or vomiting Genitourinary Genitourinary ED: Denies dysuria or hematuria Musculoskeletal Musculoskeletal: Reports neck pain; Denies back pain Integumentary Denies abscess or rash Neurologic Neurologic: Reports headache(s); Denies weakness Allergic/Immunologic Allergic/Immunologic ED: Denies mouth swelling or urticaria EXAM Physical Exam Const Vital Signs: 03/29/25 14:25 03/29/25 16:24 03/29/25 17:09 Temperature 98.4 F Temperature Source Oral Pulse Rate 93 68 61 Respiratory Rate 16 16 16 Blood Pressure 160/95 H 129/81 H 145/85 H Blood Pressure Mean 116 97 105 Pulse Ox 97 100 98 Oxygen Delivery Method Room Air Room Air Room Air 03/29/25 17:51 Temperature 0 F L Temperature Source Pulse Rate 63 Respiratory Rate 22 H Blood Pressure 150/76 H Blood Pressure Mean 100 Pulse Ox 97 Oxygen Delivery Method Positive well nourished and well developed General Appearance ED: well developed and NAD HEENT Reports moist mucous membranes HEENT Narrative: There is mild tenderness of the right temporal artery. Neck supple and no JVD Neck Narrative: There are no carotid bruits auscultated. Resp normal respiratory effort and clear to auscultation bilaterally Cardio regular rate and regular rhythm GI non-tender and non-distended Palpation: soft Extremity normal to inspection General Extremety ED: Negative for edema or tenderness General Extremity: Negativ (more content not included)... Normal [facility] Eosinophil percentageOrdered By: Derrell Leon on 2025 Eosinophils/100 WBC (Bld) 1.4 % 0-5 [facility] Erythrocyte distribution wid th ratioOrdered By: Derrell Leon on 2025 Erythrocyte distribution width (RBC) [Ratio] 11.9 % 11.6-14.6 [facility] Erythrocyte distribution wid th standard deviationOrdered By: Derrell Leon on 2025 Erythrocyte distribution width (RBC) [Ratio] 39.8 fl 35.1-43.9 [facility] Glomerular filtration rate ( GFR) estimation/1.73 sq m using serum, plasma, or whole bOrdered By: Derrell Leon on 2025 GFR/1.73 sq M.predicted among non-blacks MDRD (S/P/Bld) [Vol rate/Area] 99 mL/min/{1.73_m2} >60 [facility] Comment on above: mL/min/1.73m2 CKD-EP I Creatinine Equation (2020) Hematocrit Auto (Bld) [Volum e fraction]Ordered By: Derrell Leon on 2025 Hematocrit (Bld) [Volume fraction] 37.4 % Low 40-54 [facility] Hemoglobin measurementOrdere d By: Derrell Leon on 2025 Hemoglobin (Bld) [Mass/Vol] 13.5 g/dL 13.0-16.5 [facility] Immature granulocytes/100 WB C Auto (Bld)Ordered By: Derrell Leon on 2025 Immature granulocytes/100 WBC (Bld) 0.500 % 0.0-0.9 [facility] Comment on above: IG% - Immature Granu locytes (promyelocytes, myelocytes and metamyelocytes) > 1% indicates that a LEFT SHIFT is Present. Laboratory - Chemistry and C hemistry - challengeOrdered By: Derrell Leon on 2025 AST [Catalytic activity/Vol] 22 U/L <38 [facility] MCV (mean corpuscular volume ) determinationOrdered By: Derrell Leon on 2025 MCV (RBC) [Entitic vol] 91.9 fL 80-94 [facility] Mean corpuscular hemoglobin (MCH) determinationOrdered By: Derrell Leon on 2025 MCH (RBC) [Entitic mass] 33.2 pg High 27.0-32.0 [facility] Mean corpuscular hemoglobin concentration (MCHC) determinationOrdered By: Derrell Leon on 2025 MCHC (RBC) [Mass/Vol] 36.1 g/dL High 32-36 [facility] Mean platelet volume determi nationOrdered By: Derrell Leon on 2025 Platelet mean volume (Bld) [Entitic vol] 9.8 fL 6.2-12.0 [facility] Monocyte percentageOrdered B y: Derrell Leon on 2025 Monocytes/100 WBC (Bld) 6.1 % 0-10 [facility] Neutrophil percentageOrdered By: Derrell Leon on 2025 Neutrophils/100 WBC (Bld) 74.7 % High 47-70 [facility] Nucleated red blood cell per centageOrdered By: Derrell Leon on 2025 Nucleated RBC/100 WBC (Bld) [Ratio] 0 % 0-5 [facility] Platelet countOrdered By: Fareed Leon on 2025 Platelets (Bld) [#/Vol] 283 10*3/uL 150-450 [facility] Potassium measurement (mass/ volume)Ordered By: Derrell Leon on 2025 Potassium (Unsp spec) [Mass/Vol] 3.5 mmol/L 3.3-5.1 [facility] RBC Auto (Bld) [#/Vol]Ordere d By: Derrell Leon on 2025 RBC (Bld) [#/Vol] 4.07 10*6/uL Low 4.6-6.2 [facility] Serum creatinine measurement (mass/volume)Ordered By: Derrell Leon on 2025 Creatinine [Mass/Vol] 0.89 mg/dL 0.70-1.20 [facility] Serum globulin measurementOr dered By: Derrell Leon on 2025 Globulin (S) [Mass/Vol] 2.7 g/dL 2.2-4.2 [facility] Serum glucose measurement (m ass/volume)Ordered By: Derrell Leon on 2025 Glucose [Mass/Vol] 113 mg/dL High 70-99 [facility] Serum or plasma alanine diez otransferase (ALT) measurementOrdered By: Derrell Leon on 2025 ALT [Catalytic activity/Vol] 15 U/L <47 [facility] Serum or plasma albumin etelvina urement (mass/volume)Ordered By: Derrell Leon on 2025 Albumin [Mass/Vol] 4.5 g/dL 3.5-5.0 [facility] Serum or plasma albumin/glob ulin mass ratioOrdered By: Derrell Leon on 2025 Albumin/Globulin [Mass ratio] 1.6 {ratio} 0.9-2.4 [facility] Serum or plasma alkaline sharon sphatase measurementOrdered By: Derrell Leon on 2025 ALP [Catalytic activity/Vol] 60 U/L 40-129 [facility] Serum or plasma calcium etelvina urement (mass/volume)Ordered By: Derrell Leon on 2025 Calcium [Mass/Vol] 9.5 mg/dL 7.6-11.0 [facility] Serum or plasma lamotrigine measurement (mass/volume)Ordered By: Derrell Leon on 2025 lamoTRIgine [Mass/Vol] 8.0 ug/mL 2.0-20.0 [facility] Comment on above: Detection Limit = 1. 0Performed at: [address] [id number] Director: Quinn Barnes MD, Phone: [phone] Serum or plasma urea nitroge n measurement (mass/volume)Ordered By: Derrell Leon on 2025 Urea nitrogen [Mass/Vol] 11 mg/dL 4- [facility] Sodium levelOrdered By: Derrell Leon on 2025 Sodium [Moles/Vol] 133 mmol/L 133-145 [facility] Total proteinOrdered By: Briseida Leon on 2025 Protein [Mass/Vol] 7.2 g/dL 5.9-8.4 [facility] White blood cell (WBC) count Ordered By: Derrell Leon on 2025 WBC (Bld) [#/Vol] 5.9 10*3/uL 4.4-11.0 [facility] CNOVon 02-12-2025 CNOV Office Visit ([facility] ) REGAN VASQUEZ ([id number]) 1965 M Date Time Provider Department 02/12/25 11:00 AM [facility] During your visit today, we recorded the following information about you: Temperature Pulse Blood pressure Weight 97.3 degrees 74/minute 146/86 103.9 kg Dem[facility] [place] MD 02/12/2025 11:28 AM Signed FOLLOW UP NOTE Subjective Regan Vasquez is a 59 year old male who [...] (-) Developmental Delay (-) Febrile 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 losartan-hydroCHLOROt hiazide (HYZAAR) 50-12.5 mg per tablet Take 1 [...] Coordination: Finger to nose is smooth without (more content not included)... Normal [facility] Urgent Care Visit Reporton 0 01-07-2025 Urgent Care Visit Report [facility] [address], [address] [place] [address] OFFICE VISIT Date of Service: 01/07/25 MR#: [id number] Acct: [id number] Name: REGAN VASQUEZ Rep #: [id number] : 1965 Provider: CHANDRA pina Age/Sex: 59/M Location: [facility] Status: Signed Intake Vital Signs 05/14/21 06:09 01/07/25 10:28 Height 6 ft 2 in 6 ft 2 in Weight: 222 lb 4 oz BMI 28.5 BP 134/82 H Position Sitting Pulse 95 Temp 98.3 F Temp Source Oral Pulse Oximetry (%) 100 Oxygen Delivery Method room air Intake Visit Reasons: HEAD AND CHEST COLD, COUGH, BODY ACHES Allergies No Known Allergies Allergy (Verified 01/07/25 10:21) Nurse's Note: Patient has head chest cold with cough and Body aches and he is wheezing some. Patient states this has been going on for a month and half. [facility] Medical History (Updated 01/07/25 @ 10:39 by Blane Sandhu DIRECTOR OF AGRICULTURE, DIRECTOR OF AGRICULTURE-C) Wears glasses Depression Alcohol use Marijuana use Prostate disease High cholesterol Back pain Seizures History of ulceration Heartburn Smoker History of pain when walking Cardiology follow-up encounter Essential (primary) hypertension GERD (gastroesophageal reflux disease) Smoker Chest pain Hypertension Depression Seizure disorder Surgical History (Updated 05/07/21 @ 13:56 by Zaina Bansal) Hx of colonoscopy Hx of hernia repair History of left heart catheterization (04/08/21) History of herniorrhaphy Family History Father CAD (coronary artery disease) Other Heart disease Social History household members: significant other history of recent travel: No sexually active: Yes Smoking Status: Current every day smoker tobacco type: cigarettes alcohol intake: current alcohol intake frequency: a few times a month HPI HPI Details: REGAN VASQUEZ, is a 59 M who presents to the office today for concerns regarding head and chest cold symptoms. He acknowledges cough and bodyaches. He also acknowledges intermittent wheezing. His symptoms have been ongoing for 1-1/2 months. He has not taken OTC medications. This is worsening. He states yesterday an increase in sneezing and eyes are watery. He denies history of seasonal allergies. He is a smoker. ROS Const Constitutional: Positive for body ache and fatigue; No chills, fever(s), headache(s) or change in appetite Eyes Eyes: Positive for discharge (watery); No blurry vision, change in vision, double vision, irritation, vision loss, dry eyes, bulging eyes, floaters, visual disturbances, eye pain, Light sensitivity, spots in vision, tunnel vision or other ENT ENT: Positive for nasal congestion, sinus pressure, sinus pain, nasal discharge, hoarseness, neck pain and sore throat; No ear or mastoid pain, ear discharge, ear pressure, tinnitus, dizziness/vertigo, nosebleed/epistaxis, nose pain, post nasal drip, headache(s), facial pain, dental pain, difficulty swallowing, bad breath, lip swelling, mouth lesions, mouth pain, tongue swelling or throat swelling Resp Respiratory: Positive for cough (hard cough resulting in gagging) Cough: Yes productive, change in phlegm color (thick, yellow) and wheezing; No chest congestion, hemoptysis, pain on inspiration, shortness of breath, pain with cough or stridor Cardio Cardiology: No chest pain at rest, chest pain with exertion, shortness of breath, dyspnea on exertion or lightheadedness Gastro GI: No abdominal pain, change in bowel habits, constipation, diarrhea, difficulty swallowing, loose stools, nausea/dyspepsia or vomiting Genitourinary Male: No burning urination or urinary frequency Musc Musculoskeletal: Positive for neck pain; No joint pain Skin Skin: No rash Neuro Neurology: No headache(s) or visual disturbances Psych Psychiatric: No change in appetite Endo Endocrine: Positive for fatigue Aller/Imm Allergy/Immunologic: Positive for wheezing; No lip swelling, throat swelling or tongue swelling Exam Const General: cooperative, healthy appearing, comfortable and no acute distress Orientation: alert, awake and oriented x3 [facility] Head: normal to inspection and normocephalic Ears: hearing grossly normal bilaterally, external ears normal and TM's normal bilaterally Nose: external nose normal, nares normal and no nasal discharge Face and sinus: normal facial exam and sinuses nontender Mouth: oral mucosae normal, lip normal, tongue normal, oropharynx normal and moist mucous membranes Throat: posterior oropharynx normal, tonsils normal, uvula midline and no postnasal drainage Eyes General: appearance normal, both eyes and all related structures Neck Neck: normal visual inspection and no lymphadenopathy Carotids: nor (more content not included)... Normal [facility] No Panel InformationOrdered By: Derrell Muñoz on 06-16-2023 Miscellaneous Test See comment [facility] Comment on above: TEST RESULTS LIMITSC admium, Blood A, <0.5 ug/L 0.0-1.2 Environmental Exposure: Nonsmokers 0.3 - 1.2 Smokers 0.6 - 3.9 Occupational Exposure: OSHA Cadmium Std 5.0 ANASTASIA 5.0 Detection Limit = 0.5 TESTING PERFORMED AT [facility]. ORIGINAL REPORT ON FILE IN LAB CONTAINS ADDITIONAL TEST SITE INFORMATION. Basophil percentageOrdered B y: Derrell Muñoz on 05-31-2023 Testosterone [Mass/Vol] 159 ng/dL 264-916 [facility] Comment on above: Adult male reference interval is based on a population ofhealthy nonobese males (BMI <30) between 19 and 39 yearsold. Cinda et.al. JCEM 2017,102;8171-8009. PMID:[id number]. Free testosterone percentage Ordered By: Derrell Muñoz on 05-31-2023 Testosterone Free/Testosterone.total [Mass fraction] 2.33 % 1.50-4.20 [facility] Comment on above: Performed at: - [employer] [id number] Director: Angel Ruby PhD, Phone: [phone] at: [address] [id number] Director: Quinn Barnes MD, Phone: [phone] Serum or plasma testosterone free measurement (mass/volume)Ordered By: Derrell Muñoz on 05-31-2023 Testosterone Free [Mass/Vol] 3.70 ng/dL 5.00-21.00 [facility] Absolute lymphocyte countOrd ered By: Derrell Muñoz on 05-04-2023 Lymphocytes Auto (Unsp spec) [#/Vol] 1.24 10*3/uL 0.83-4.51 [facility] Basophil percentageOrdered B y: Derrell Muñoz on 05-04-2023 Basophil percentage 1 ug/L 0-9 [facility] Comment on above: Detection Limit = 1 Basophils/100 WBC (Bld) 0.7 % 0-1 [facility] Bilirubin [Mass/Vol] 0.30 mg/dL 0.20-1.00 [facility] Comment on above: For patients on eltr ombopag therapy, use of Dimension Ulen TBIL is not recommended. Chloride [Moles/Vol] 103 mmol/L 98-107 [facility] Eosinophils/100 WBC (Bld) 2.5 % 0-5 [facility] Glucose [Mass/Vol] 93 mg/dL 74-106 [facility] Neutrophils (Bld) [#/Vol] 3.5 10*3/uL 2.0-7.7 [facility] Neutrophils/100 WBC (Bld) 64.3 % 47-70 [facility] Potassium [Moles/Vol] 3.5 mmol/L 3.5-5.1 [facility] Protein [Mass/Vol] 6.9 g/dL 6.4-8.2 [facility] Sodium [Moles/Vol] 137 mmol/L 136-145 [facility] Testosterone [Mass/Vol] 159 ng/dL 264-916 [facility] Comment on above: Adult male reference interval is based on a population ofhealthy nonobese males (BMI <30) between 19 and 39 yearsold. Cinda et.al. JCEM 2017,102;1289-2915. PMID:[id number]. WBC (Bld) [#/Vol] 5.5 10*3/uL 4.4-11.0 [facility] Blood erythrocytes count (nu mber/volume)Ordered By: Derrell Muñoz on 05-04-2023 RBC (Bld) [#/Vol] 4.21 10*6/uL 4.6-6.2 [facility] Blood hemoglobin measurement (mass/volume)Ordered By: Derrell Muñoz on 05-04-2023 Hemoglobin (Bld) [Mass/Vol] 13.7 g/dL 13.0-16.5 [facility] Blood lymphocytes/100 leukoc ytesOrdered By: Derrell Muñoz on 05-04-2023 Lymphocytes/100 WBC (Bld) 22.5 % 19-41 [facility] Blood mercury measurement (m ass/volume)Ordered By: Derrell Muñoz on 05-04-2023 Mercury (Bld) [Mass/Vol] < 1.0 ug/L 0.0-14.9 [facility] Comment on above: Environmental Exposu re: <15.0 Occupational Exposure: ANASTASIA - Inorganic Mercury: 15.0 Detection Limit = 1.0 Blood monocytes/100 leukocyt esOrdered By: Derrell Muñoz on 05-04-2023 Monocytes/100 WBC (Bld) 9.6 % 0-10 [facility] Blood platelet mean volumeOr dered By: Derrell Muñoz on 05-04-2023 Platelet mean volume (Bld) [Entitic vol] 10.3 fL 6.2-12.0 [facility] Determination of erythrocyte mean corpuscular volume (MCV)Ordered By: Derrell Muñoz on 05-04-2023 MCV (RBC) [Entitic vol] 94.1 fL 80-94 [facility] Erythrocyte sedimentation ra teOrdered By: Derrell Muñoz on 05-04-2023 ESR (Bld) [Velocity] 9 mm/h 0-20 [facility] Free testosterone percentage Ordered By: Derrell Muñoz on 05-04-2023 Testosterone Free/Testosterone.total [Mass fraction] 1.92 % 1.50-4.20 [facility] Comment on above: Performed at: - [address] [id number] Director: Quinn Barnes MD, Phone: [phone] at: [facility] [employer] [id number] Director: Angel Ruby PhD, Phone: [phone] Hematocrit Auto (Bld) [Volum e fraction]Ordered By: Derrell Muñoz on 05-04-2023 Hematocrit (Bld) [Volume fraction] 39.6 % 40-54 [facility] Laboratory - Chemistry and C hemistry - challengeOrdered By: Derrell Muñoz on 05-04-2023 ALP [Catalytic activity/Vol] 62 U/L 45-117 [facility] ALT [Catalytic activity/Vol] 34 U/L 16-61 [facility] CO2 [Moles/Vol] 26.0 mmol/L 21.0-32.0 [facility] Cobalamin (Vitamin B12) [Mass/Vol] 1387 pg/mL 211-911 [facility] Globulin (S) [Mass/Vol] 3.1 g/dL 2.2-4.2 [facility] Urea nitrogen/Creatinine [Mass ratio] 13.6 mg/mg 10-20 [facility] Laboratory - Hematology and Cell countsOrdered By: Derrell Muñoz on 05-04-2023 Erythrocyte distribution width (RBC) [Entitic vol] 41.2 fL 35.1-43.9 [facility] Erythrocyte distribution width (RBC) [Ratio] 12.1 % 11.6-14.6 [facility] Immature granulocytes/100 WBC (Bld) 0.400 % 0.0-0.9 [facility] Comment on above: IG% - Immature Granu locytes (promyelocytes, myelocytes and metamyelocytes) > 1% indicates that a LEFT SHIFT is Present. MCH (RBC) [Entitic mass] 32.5 pg 27.0-32.0 [facility] Nucleated RBC/100 WBC (Bld) [Ratio] 0 % 0-5 [facility] MCHC Auto (RBC) [Mass/Vol]Or dered By: Derrell Muñoz on 05-04-2023 MCHC (RBC) [Mass/Vol] 34.6 g/dL 32-36 [facility] No Panel InformationOrdered By: Derrell Muñoz on 05-04-2023 Anti-Nuclear Antibody Screen Negative Negative [facility] Comment on above: Performed at: [address] [id number] Director: Angel Ruby PhD, Phone: [phone] Estimated GFR (MDRD) Amer 89 mL/min >60 [facility] Comment on above: GFR Calc Estimated GFR (MDRD) Non-Af Amer 73 mL/min >60 [facility] Comment on above: Non- GFR Calc Lead < 1.0 ug/dL 0.0-3.4 [facility] Comment on above: Testing performed by Inductively coupled plasma/MassSpectrometry. Environmental Exposure: WHO Recommendation <5.0 Occupational Exposure: OSHA Lead Std 40.0 ANASTASIA 30.0 Detection Limit = 1.0 Thyroid Stimulating Hormone (TSH) 1.54 uIU/mL 0.358-3.74 [facility] Platelets bldOrdered By: Briseida Muñoz on 05-04-2023 Platelets (Bld) [#/Vol] 226 10*3/uL 150-450 [facility] Serum or plasma albumin etelvina urement (mass/volume)Ordered By: Derrell Muñoz on 05-04-2023 Albumin [Mass/Vol] 3.8 g/dL 3.2-5.0 [facility] Serum or plasma albumin/glob ulin mass ratioOrdered By: Derrell Muñoz on 05-04-2023 Albumin/Globulin [Mass ratio] 1.2 {ratio} 0.9-2.4 [facility] Serum or plasma calcium etelvina urement (mass/volume)Ordered By: Derrell Muñoz on 05-04-2023 Calcium [Mass/Vol] 9.2 mg/dL 8.5-10.1 [facility] Serum or plasma creatinine m easurement (mass/volume)Ordered By: Derrell Muñoz on 05-04-2023 Creatinine [Mass/Vol] 1.10 mg/dL 0.70-1.30 [facility] Comment on above: The validity of the calculated GFR & GFRAA in patients over 70 years has not been determined. Clinical correlation is essential. Serum or plasma ferritin onesimo surement (mass/volume)Ordered By: Derrell Muñoz on 05-04-2023 Ferritin [Mass/Vol] 75 ng/mL 26-388 [facility] Serum or plasma folate measu rement (mass/volume)Ordered By: Derrell Muñoz on 05-04-2023 Folate [Mass/Vol] 5.90 ng/mL 3.1-55.4 [facility] Serum or plasma testosterone free measurement (mass/volume)Ordered By: Derrell Muñoz on 05-04-2023 Testosterone Free [Mass/Vol] 3.05 ng/dL 5.00-21.00 [facility] Serum or plasma urea nitroge n measurement (mass/volume)Ordered By: Derrell Muñoz on 05-04-2023 Urea nitrogen [Mass/Vol] 15 mg/dL 7-18 [facility] Thin prep Papanicolaou smear with manual screeningOrdered By: Derrell Muñoz on 05-04-2023 Thin prep Papanicolaou smear with manual screening 22 U/L 15-37 [facility] Thin prep Papanicolaou smear with manual screening 8 5-15 [facility] Absolute lymphocyte countOrd ered By: Dr. Muñoz on 11-30-2022 Lymphocytes Auto (Unsp spec) [#/Vol] 1.31 10*3/uL 0.83-4.51 [facility] Basophil percentageOrdered B y: Dr. Muñoz on 11-30-2022 Basophils/100 WBC (Bld) 0.8 % 0-1 [facility] Bilirubin [Mass/Vol] 0.40 mg/dL 0.20-1.00 [facility] Comment on above: For patients on eltr ombopag therapy, use of Dimension Ulen TBIL is not recommended. Chloride [Moles/Vol] 102 mmol/L 98-107 [facility] Cholesterol [Mass/Vol] 220 mg/dL <200 [facility] Comment on above: <200 mg/dL Desirable 200-240 mg/dL Borderline >240 mg/dL High Risk Eosinophils/100 WBC (Bld) 2.8 % 0-5 [facility] Glucose [Mass/Vol] 112 mg/dL 74-106 [facility] Comment on above: Fasting Glucose resu lt from 100 to 125 mg/dL suggests IMPAIRED HOMEOSTASIS per A.D.A. criteria. Neutrophils (Bld) [#/Vol] 3.0 10*3/uL 2.0-7.7 [facility] Neutrophils/100 WBC (Bld) 60.1 % 47-70 [facility] Potassium [Moles/Vol] 3.7 mmol/L 3.5-5.1 [facility] Protein [Mass/Vol] 6.8 g/dL 6.4-8.2 [facility] Sodium [Moles/Vol] 137 mmol/L 136-145 [facility] WBC (Bld) [#/Vol] 5.0 10*3/uL 4.4-11.0 [facility] Blood erythrocytes count (nu mber/volume)Ordered By: Dr. Muñoz on 11-30-2022 RBC (Bld) [#/Vol] 4.09 10*6/uL 4.6-6.2 [facility] Blood hemoglobin measurement (mass/volume)Ordered By: Dr. Muñoz on 11-30-2022 Hemoglobin (Bld) [Mass/Vol] 13.3 g/dL 13.0-16.5 [facility] Blood lymphocytes/100 leukoc ytesOrdered By: Dr. Muñoz on 11-30-2022 Lymphocytes/100 WBC (Bld) 26.1 % 19-41 [facility] Blood monocytes/100 leukocyt esOrdered By: Dr. Muñoz on 11-30-2022 Monocytes/100 WBC (Bld) 9.8 % 0-10 [facility] Blood platelet mean volumeOr dered By: Dr. Muñoz on 11-30-2022 Platelet mean volume (Bld) [Entitic vol] 10.4 fL 6.2-12.0 [facility] Determination of erythrocyte mean corpuscular volume (MCV)Ordered By: Dr. Muñoz on 11-30-2022 MCV (RBC) [Entitic vol] 94.6 fL 80-94 [facility] Hematocrit Auto (Bld) [Volum e fraction]Ordered By: Dr. Muñoz on 11-30-2022 Hematocrit (Bld) [Volume fraction] 38.7 % 40-54 [facility] Laboratory - Chemistry and C hemistry - challengeOrdered By: Dr. Muñoz on 11-30-2022 ALP [Catalytic activity/Vol] 61 U/L 45-117 [facility] ALT [Catalytic activity/Vol] 25 U/L 16-61 [facility] CO2 [Moles/Vol] 27.0 mmol/L 21.0-32.0 [facility] Globulin (S) [Mass/Vol] 3.1 g/dL 2.2-4.2 [facility] Urea nitrogen/Creatinine [Mass ratio] 13.1 mg/mg 10-20 [facility] Laboratory - Hematology and Cell countsOrdered By: Dr. Muñoz on 11-30-2022 Erythrocyte distribution width (RBC) [Entitic vol] 41.5 fL 35.1-43.9 [facility] Erythrocyte distribution width (RBC) [Ratio] 11.9 % 11.6-14.6 [facility] Immature granulocytes/100 WBC (Bld) 0.400 % 0.0-0.9 [facility] Comment on above: IG% - Immature Granu locytes (promyelocytes, myelocytes and metamyelocytes) > 1% indicates that a LEFT SHIFT is Present. MCH (RBC) [Entitic mass] 32.5 pg 27.0-32.0 [facility] Nucleated RBC/100 WBC (Bld) [Ratio] 0 % 0-5 [facility] MCHC Auto (RBC) [Mass/Vol]Or dered By: Dr. Muñoz on 11-30-2022 MCHC (RBC) [Mass/Vol] 34.4 g/dL 32-36 [facility] No Panel InformationOrdered By: Dr. Muñoz on 11-30-2022 Estimated GFR (MDRD) Amer 100 mL/min >60 [facility] Comment on above: GFR Calc Estimated GFR (MDRD) Non-Af Amer 83 mL/min >60 [facility] Comment on above: Non- GFR Calc Thyroid Stimulating Hormone (TSH) 1.28 uIU/mL 0.358-3.74 [facility] Urine Microalbumin/Creatinine Ratio 6.5 mg/g CRE <30 [facility] Platelets bldOrdered By: Dr. Muñoz on 11-30-2022 Platelets (Bld) [#/Vol] 250 10*3/uL 150-450 [facility] Serum or plasma albumin etelvina urement (mass/volume)Ordered By: Dr. Muñoz on 11-30-2022 Albumin [Mass/Vol] 3.7 g/dL 3.2-5.0 [facility] Serum or plasma albumin/glob ulin mass ratioOrdered By: Dr. Muñoz on 11-30-2022 Albumin/Globulin [Mass ratio] 1.2 {ratio} 0.9-2.4 [facility] Serum or plasma calcium etelvina urement (mass/volume)Ordered By: Dr. Muñoz on 11-30-2022 Calcium [Mass/Vol] 9.2 mg/dL 8.5-10.1 [facility] Serum or plasma cholesterol in HDL measurement (mass/volume)Ordered By: Dr. Muñoz on 11-30-2022 Cholesterol in HDL [Mass/Vol] 80 mg/dL >40 [facility] Comment on above: The drugs N-Acetylcy steine and Metamizole may falsely depress this assay. Reference Range HDL <40 mg/dL Low HDL Cholesterol HDL >or= 60 mg/dL High HDL Cholesterol Serum or plasma creatinine m easurement (mass/volume)Ordered By: Dr. Muñoz on 11-30-2022 Creatinine [Mass/Vol] 0.99 mg/dL 0.70-1.30 [facility] Comment on above: The validity of the calculated GFR & GFRAA in patients over 70 years has not been determined. Clinical correlation is essential. Serum or plasma urea nitroge n measurement (mass/volume)Ordered By: Dr. Muñoz on 11-30-2022 Urea nitrogen [Mass/Vol] 13 mg/dL 7-18 [facility] Thin prep Papanicolaou smear with manual screeningOrdered By: Dr. Muñoz on 11-30-2022 Thin prep Papanicolaou smear with manual screening 15 U/L 15-37 [facility] Thin prep Papanicolaou smear with manual screening 8 5-15 [facility] Thin prep Papanicolaou smear with manual screening 297 mOsm/KG 275-295 [facility] Thin prep Papanicolaou smear with manual screening 11.6 mg/L NO RANGE EST. [facility] Urine creatinine measurement (mass/volume)Ordered By: Dr. Muñoz on 11-30-2022 Creatinine (U) [Mass/Vol] 179.00 mg/dL NO RANGE EST. [facility] Urine osmolality measurement Ordered By: Dr. Muñoz on 11-30-2022 Osmolality (U) [Osmolality] 668 mOsm/KG >50 [facility] Comment on above: Normal Urine Referen ce Ranges Random: 50 - 1200 mOsm/kg H20 depending on fluid intake Random: >850 mOsm/kg after 12 hour fluid restriction 24 hour: ~300 - 900 mOsm/kg H2O No Panel InformationOrdered By: DAVID Hammer on 09-16-2022 Prostate Specific Antigen Screen 2.30 ng/mL 0.00-4.00 [facility] Comment on above: This test was perfor med using the TPSA assay method for [employer] chemistry system. Values obtained with differentassay methods cannot be used interchangably.When changing PSA assays in the course of monitoring apatient, additional sequential testing should be carriedout to confirm baseline values. Vital Signs Date Time Vital Sign Value Performing Clinician Hector sorto 07-17-2025 13:42-0400 Diastolic blood pressure 71 mm[Hg] Dr. Derrell Muñoz MD Work Phone: [facility] 07-17-2025 13:42-0400 Heart rate 60 /min Dr. Derrell Muñoz MD Work Phone: [facility] 07-17-2025 13:42-0400 Respiratory rate 16 /min Dr. Derrell Muñoz MD Work Phone: [facility] 07-17-2025 13:42-0400 SaO2% (BldA) [Mass fraction] 94 % Dr. Derrell Muñoz MD Work Phone: [facility] 07-17-2025 13:42-0400 Systolic blood pressure 101 mm[Hg] Dr. Derrell Muñoz MD Work Phone: [facility] 07-17-2025 13:18-0400 Body height 187.[address] Derrell Muñoz MD Work Phone: [facility] 07-17-2025 13:18-0400 Body mass index (BMI) [Ratio] 28.2 kg/m2 Dr. Derrell Muñoz MD Work Phone: [facility] 07-17-2025 13:18-0400 Body weight 99.[address] Derrell Muñoz MD Work Phone: [facility] 04-06-2025 11:04-0400 Body height 185.4 cm Demetra Hill MD Work Phone: [facility] 04-06-2025 11:04-0400 Body mass index (BMI) [Ratio] 29.64 kg/m2 Demetra Hill MD Work Phone: [facility] 04-06-2025 11:04-0400 Body weight 101.9 kg Demetra Hill MD Work Phone: [facility] 04-06-2025 11:04-0400 Diastolic blood pressure 76 mm[Hg] Demetra Hill MD Work Phone: [facility] 04-06-2025 11:04-0400 Heart rate 77 /min Demetra Hill MD Work Phone: [facility] 04-06-2025 11:04-0400 Systolic blood pressure 123 mm[Hg] Demetra Hill MD Work Phone: [facility] 2025 17:51-0400 Body temperature 0 [degF] Dr. Derrell Muñoz MD Work Phone: [facility] 2025 17:51-0400 Diastolic blood pressure 76 mm[Hg] Dr. Derrell Muñoz MD Work Phone: [facility] 2025 17:51-0400 Heart rate 63 /min Dr. Derrell Muñoz MD Work Phone: [facility] 2025 17:51-0400 Respiratory rate 22 /min Dr. Derrell Muñoz MD Work Phone: [facility] 2025 17:51-0400 SaO2% (BldA) [Mass fraction] 97 % Dr. Derrell Muñoz MD Work Phone: [facility] 2025 17:51-0400 Systolic blood pressure 150 mm[Hg] Dr. Derrell Muñoz MD Work Phone: [facility] 2025 14:25-0400 Body height 187.[address] Derrell Muñoz MD Work Phone: [facility] 2025 14:25-0400 Body mass index (BMI) [Ratio] 29 kg/m2 Dr. Derrell Muñoz MD Work Phone: [facility] 2025 14:25-0400 Body weight 102.[address] Derrell Muñoz MD Work Phone: [facility] 01-07-2025 10:28-0400 Body mass index (BMI) [Ratio] 28.5 kg/m2 Dr. Derrell Muñoz MD Work Phone: [facility] 01-07-2025 10:28-0400 Body temperature 98.3 [degF] Dr. Derrell Muñoz MD Work Phone: [facility] 01-07-2025 10:28-0400 Body weight 100.[address] Derrell Muñoz MD Work Phone: [facility] 01-07-2025 10:28-0400 Diastolic blood pressure 82 mm[Hg] Dr. Derrell Muñoz MD Work Phone: [facility] 01-07-2025 10:28-0400 Heart rate 95 /min Dr. Derrell Muñoz MD Work Phone: [facility] 01-07-2025 10:28-0400 SaO2% (BldA) [Mass fraction] 100 % Dr. Derrell Muñoz MD Work Phone: [facility] 01-07-2025 10:28-0400 Systolic blood pressure 134 mm[Hg] Dr. Derrell Muñoz MD Work Phone: [facility] 02-25-2024 11:16-0400 Body height 185.4 cm Demetra Hill MD Work Phone: [facility] 02-25-2024 11:16-0400 Body mass index (BMI) [Ratio] 31.21 kg/m2 Demetra Hill MD Work Phone: [facility] 02-25-2024 11:16-0400 Body weight 107.3 kg Demetra Hill MD Work Phone: [facility] 02-25-2024 11:16-0400 Diastolic blood pressure 82 mm[Hg] Demetra Hill MD Work Phone: [facility] 02-25-2024 11:16-0400 Heart rate 78 /min Demetra Hill MD Work Phone: [facility] 05-10-2024 11:16-0400 Systolic blood pressure 138 mm[Hg] Demetra Hill MD Work Phone: [facility] 01-21-2022 10:52-0400 Body height 185.4 cm Demetra Hill MD Work Phone: [facility] 01-21-2022 10:52-0400 Body weight 109.23 kg Demetra Hill MD Work Phone: [facility] 01-21-2022 10:52-0400 Diastolic blood pressure 80 mm[Hg] Demetra Hill MD Work Phone: [facility] 01-21-2022 10:52-0400 Heart rate 92 /min Demetra Hill MD Work Phone: [facility] 01-21-2022 10:52-0400 Systolic blood pressure 129 mm[Hg] Demetra Hill MD Work Phone: [facility] Encounters Encounter Date Encounter Type Care Provider Facility Start: 08-15-2025 End: 08-15-2025 ambulatory Derrell Muñoz [facility] Start: 07-25-[address] Derrell Muñoz MD -[facility] Work Phone: Start: 07-25-2025 End: 07-25-2025 ambulatory Derrell Muñoz Facility:[facility] Start: 07-23-[address] Derrell Muñoz MD -[facility] Start: 07-23-2025 End: 07-23-2025 ambulatory Derrell Muñoz Facility:[facility] Start: 07-17-2025 ambulatory Derrell Muñoz Facility:[facility] Start: 07-17-2025 Non-patient / Non-visit Dr. Cass CONKLIN -[facility] Start: 07-17-2025 End: 07-17-[address] Derrell Muñoz MD Work Phone: -Cat Scan [facility] Start: 07-17-2025 End: 07-17-[address] Derrell Muñoz MD -Cat Scan [facility] Work Phone: Start: 07-17-2025 End: 07-17-2025 ambulatory Derrell Muñoz Facility:[facility] Start: 07-04-2025 End: 07-04-[address] Derrell Muñoz MD Work Phone: -Cat [facility] Start: 07-04-2025 End: 07-04-[address] Derrell Muñoz MD -Cat Scan [facility] Work Phone: Start: 07-04-2025 End: 07-04-2025 ambulatory Derrell Muñoz Facility:[facility] Start: 05-18-2025 End: 05-18-[address] Derrell Muñoz MD Work Phone: -[facility] Start: 05-18-2025 End: 05-18-[address] Derrell Muñoz MD -[facility] Start: 05-18-2025 End: 05-18-2025 ambulatory Derrell Muñoz Facility:[facility] Start: 04-27-2025 End: 04-27-[address] Derrell Muñoz MD Work Phone: -[facility] Start: 04-27-2025 End: 04-27-[address] 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 Derrell Muñoz MD Work Phone: -Emergency Department Work Phone: Start: 2025 End: 2025 Telephone encounter Demetra Hill MD Work Phone: [facility] Comment on above: Patient Question Start: 02-12-2025 End: 02-12-2025 ambulatory DEMETRA HILL Facility:[facility] Start: 01-07-2025 End: 01-07-2025 Patient encounter procedure Blane ARTIS [facility] Work Phone: Start: 01-07-2025 End: 01-07-2025 ambulatory Derrell Muñoz Facility:[facility] Start: 02-25-2024 End: 02-25-2024 Patient encounter procedure Demetra Hill MD Work Phone: Neurology Comment on above: 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 Derrell Muñoz Work Phone: [facility] Work Phone: Start: 06-16-2023 End: 06-16-[address] Derrell Muñoz Work Phone: [facility] Work Phone: Start: 05-31-2023 End: 05-31-[address] Derrell Muñoz Work Phone: [facility] Work Phone: Start: 05-31-2023 End: 05-31-[address] Derrell Muñoz Work Phone: [facility] Work Phone: Start: 05-27-2023 Non-patient / Non-visit Dr. Fareed Muñoz Work Phone: [facility] Start: 05-27-2023 End: 05-27-[address] Derrell Muñoz Work Phone: [facility] Work Phone: Start: 05-27-2023 End: 05-27-[address] Derrell Muñoz Work Phone: [facility]-Pulmonary Services/Neurology Work Phone: Start: 05-17-2023 Non-patient / Non-visit Dr. Fareed Muñoz Work Phone: [facility] Start: 05-17-2023 End: 05-17-[address] Derrell Muñoz Work Phone: [facility] Work Phone: Start: 05-17-2023 End: 05-17-[address] Derrell Muñoz Work Phone: [facility]-Cardiovascula r Services Work Phone: Start: 05-04-2023 End: 05-04-2023 ambulatory [facility] Work Phone: Start: 05-04-2023 End: 05-04-2023 Patient encounter procedure [facility] Work Phone: Start: 04-28-2023 Telephone encounter Demetra marroquin MD Work Phone: [facility] Comment on above: Patient Question Start: 04-23-2023 Refill Demetra Hill MD Work Phone: Neurology Comment on above: Refill Request Start: 01-22-2023 Telephone encounter Demetra marroquin MD Work Phone: Neurology Comment on above: Appointment (Call to Patient) Start: 01-12-2023 Telephone encounter Demetra marroquin MD Work Phone: Neurology Comment on above: Medication Problem Start: 11-30-2022 End: 11-30-2022 ambulatory [facility] Work Phone: Start: 11-30-2022 End: 11-30-2022 Patient encounter procedure [facility] Start: 09-16-2022 End: 09-16-2022 ambulatory [facility] Work Phone: Start: 09-16-2022 End: 09-16-2022 Patient encounter procedure [facility] Start: 03-26-2022 End: 03-26-2022 Patient encounter procedure [facility] Start: 01-21-2022 End: 01-21-2022 Patient encounter procedure Demetra Hill MD Work Phone: Neurology Comment on above: Paresthesia (Primary Dx); Nonintractable epilepsy without status epilepticus, unspecified epilepsy type (HCC) Start: 05-11-2018 End: 05-11-2018 Patient encounter [facility] Procedures Date Procedure Procedure Detail Performing Clinician Start: 07-17-2025 Cardiac computed tomography for calcium scoring Dr. Derrell Muñoz MD Work Phone: Start: 07-04-2025 CT of soft tissues o f neck with contrast Dr. Derrell Muñoz MD Work Phone: Start: 04-27-2025 Plain X-ray of shoulder Dr. Derrell Muñoz MD Work Phone: Start: 2025 CT of head without contrast Dr. Derrell Muñoz MD Work Phone: Start: [address] Derrell Muñoz MD Work Phone: Start: 03-26-2022 Plain chest X-ray Start: 04-27-2018 Adult depression screening assessment Demetra Hill MD Work Phone: Plan of Treatment Date Care Activity Detail Author Start: 09-24-2025 End: 09-24-2025 Patient encounter procedure 09/24/2025 3:30 PM EST Office Visit Neurology [address] [facility] [place] [address] Demetra Hill MD [address] [place] [address] follow up, seizures. Neurology Comment on above: follow up, seizures. Start: 06-18-2025 Influenza vaccination [facility] Start: 2025 Lamotrigine measurement [facility] Start: 09-01-2024 End: 09-01-2024 Patient encounter procedure 09/01/2024 11:00 AM EST Office Visit Neurology [address] [facility] [place] [id number] Demetra Hill MD [address] [facility] [address] [address] [place], [place] [address] Six month follow up Neurology Comment on above: Six month follow up Start: 06-18-2024 Covid-19 Vaccine ( season) Covid-19 Vaccine ( season) [facility] Start: 06-18-2024 Influenza vaccination Influenz a Vaccine (Season Ended) [facility] Start: 10-18-2023 Behavioral Health Screening Behavioral Health Screening [facility] Start: 06-18-2023 Covid-19 Vaccine ( season) Covid-19 Vaccine ( season) [facility] Start: 06-18-2023 Influenza vaccination [facility] Start: 05-04-2023 Heavy metals measurement [facility] Start: 10-18-2022 DEPRESSION ASSESSMENT DEPRESSION ASS ESSMENT [facility] Start: 06-18-2022 Influenza vaccination [facility] Start: 2021 PROSTATE CANCER SCREENING DISCUSSION PROSTATE CANCER SCREENING DISCUSSION [facility] Start: 2021 Prostate specific antigen measurement Prostate Cancer Screening Discussion [facility] Start: 12-08-2020 DIABETES SCREEN DIABETES SCREEN [facility] Start: 12-08-2020 Diabetes Screening Diabetes Screenin g [facility] Start: 04-27-2019 Adult depression screening assessment DEPRESSION SCREENING [facility] Start: 2016 SHINGRIX VACCINE (1 of 2) SHINGRIX VACCINE (1 of 2) [facility] Start: 2011 COLOGUARD (FIT-DNA) COLOGUARD (FIT-D NA) [facility] Start: 2011 Colonoscopy COLONOSCOPY [facility] Start: 2011 COLORECTAL CANCER SCREENING COLORECTAL CANCER SCREENING [facility] Start: [address] COLONOGRAPHY [facility] Start: 2011 FECAL OCCULT BLOOD FECAL OCCULT BLOO D [facility] Start: 2011 Prostate specific antigen measurement Prostate Cancer Screening Discussion [facility] Start: 2011 Screening for malign ant neoplasm of colon [facility] Start: 2011 SIGMOIDOSCOPY SIGMOIDOSCOPY [facility] Start: 2001 Lipid panel Lipid Screening [facility] Start: 2001 LIPID SCREEN LIPID SCREEN [facility] Start: 1985 Hepatitis B Vaccine (1 of 3 - 19+ 3-dose series) Hepatitis B Vaccine (1 of 3 - 19+ 3-dose series) [facility] Start: 1985 Pneumococcal Vaccine : 50+ (1 of 2 - PCV) Pneumococcal Vaccine: 50+ (1 of 2 - PCV) [facility] Start: 1985 Urine microalbumin profile [facility] Start: 1984 Anxiety Screening Anxiety Screening [facility] Start: 1984 Depression Screening Depression Scre ening [facility] Start: 1972 PNEUMOCOCCAL (1 - PCV) PNEUMOCOCCAL (1 - PCV) [facility] Start: 1972 Pneumococcal vaccination Pneum ococcal Vaccine (1 of 2 - PCV) [facility] Start: 1971 COVID-19 VACCINE (1) COVID-19 VACCIN E (1) [facility] Start: 1966 COVID-19 VACCINE (#1) COVID-19 VACCI NE (#1) [facility] Start: 1966 HEPATITIS B (1 of 3 - 3-dose series) HEPATITIS B (1 of 3 - 3-dose series) [facility] Arsenic measurement [facility] Lead measurement [facility] Mercury measurement, blood [facility] Patient Education ED Seizure, Re current (Adult) [facility] Work Phone: Patient referral [facility] Work Phone: Testosterone Free [Mass/volume] in Serum or Plasma [facility] Testosterone Free [Mass/volume] in Serum or Plasma [facility] Testosterone measurement [facility] Testosterone measurement [facility] Payers Date Payer Category Payer Unknown [id number] 2025 Self-pay [id number] 2019 Private Health Insurance MMO SUP ERMED PPO 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 2019 Unknown [id number] 2019 Unknown [id number] 2014 Unknown [id number] Unknown [id number] Unknown [id number] Unknown [id number] Unknown [id number] Unknown [id number] 462 Unknown [id number] 462 Unknown [id number] Unknown [id number] 462 Unknown [id number] 462 Unknown [id number] 462 Social History Date Type Detail Facility Tobacco smoking stat us [facility] Unknown if ever smoked [facility] Work Phone: Start: 1965 Sex Assigned At Male [facility] Start: 12-08-2017 End: 2025 Tobacco smoking status SCIS Smokes tobacco daily [facility] History of tobacco use Cigarette Smoker [facility] Start: 12-08-2017 End: 03-03-2023 Tobacco use and exposure User of smokeless tobacco [facility] History of tobacco use Chews Tobacco [facility] Start: 01-21-2022 End: 02-12-2025 Alcohol intake Current drinker of alcohol (finding) [facility] Start: 12-08-2017 History SDOH Alcohol Comment 20 beers per day [facility] Start: 1965 Sex Assigned At Not on file [facility] Start: 01-11-2022 End: 01-21-2022 Exposure to SARS-CoV-2 (event) Not sure [facility] Start: 05-14-2021 End: 05-14-2021 Tobacco smoking status SCIS Unknown if ever smoked [facility] Start: 09-23-2020 End: 03-03-2023 History of Social function [facility] Start: 09-23-2020 End: 03-03-2023 Tobacco use panel [facility] Adult Depression Screening Assessment 0 [facility] Medical Equipment Procedure Code Equipment Code Equipment Origin al Text Equipment Identifier Dates BRIAN PONCE FDA Start: 05-14-2021 MESH,PRO CURATOR NATURAL HISTORY MUSEUM [id number] FDA Start: 05-14-2021 CLIP,SOFIABRAM RIDDLE FDA Start: 05-14-2021 MESH,PRO CURATOR NATURAL HISTORY MUSEUM [id number] FDA Start: 05-14-2021 CLIPSOFIABRAM RIDDLE FDA Start: 05-14-2021 MESH,PRO CURATOR NATURAL HISTORY MUSEUM [id number] FDA Start: 05-14-2021 CLIP,SOFIABRAM RIDDLE FDA Start: 05-14-2021 MESH,PRO CURATOR NATURAL HISTORY MUSEUM [id number] FDA Start: 05-14-2021 CLIP,SOFIABRAM RIDDLE FDA Start: 05-14-2021 MESH,PRO CURATOR NATURAL HISTORY MUSEUM [id number] FDA Start: 05-14-2021 CLIP,SOFIABRAM RIDDLE FDA Start: 05-14-2021 MESH,PRO CURATOR NATURAL HISTORY MUSEUM [id number] FDA Start: 05-14-2021 CLIP,LOIDAISABELL RIDDLE FDA Start: 05-14-2021 MESH,PRO CURATOR NATURAL HISTORY MUSEUM [id number] FDA Start: 05-14-2021 CLIP,SOFIABRAM RIDDLE FDA Start: 05-14-2021 MESH,PRO CURATOR NATURAL HISTORY MUSEUM [id number] FDA Start: 05-14-2021 CLIP,SOFIABRAM RIDDLE FDA Start: 05-14-2021 MESH,PRO CURATOR NATURAL HISTORY MUSEUM [id number] FDA Start: 05-14-2021 CLIPSOFIABRAM RIDDLE FDA Start: 05-14-2021 MESH,PRO CURATOR NATURAL HISTORY MUSEUM [id number] FDA Start: 05-14-2021 CLIPSOFIABRAM RIDDLE FDA Start: 05-14-2021 MESH,PRO CURATOR NATURAL HISTORY MUSEUM [id number] FDA Start: 05-14-2021 CLIPBRIAN FDA Start: 05-14-2021 MESH,PRO CURATOR NATURAL HISTORY MUSEUM [id number] FDA Start: 05-14-2021 CLIPSOFIABRAM RIDDLE FDA Start: 05-14-2021 MESH,PRO CURATOR NATURAL HISTORY MUSEUM [id number] FDA Start: 05-14-2021 BRIAN PONCE FDA Start: 05-14-2021 MESH,PRO CURATOR NATURAL HISTORY MUSEUM [id number] FDA Start: 05-14-2021 Mental Status Date Assessment Result Facility 07-17-2025 Cognitive function Awake [facility] Work Phone: 2025 Cognitive function Voice/Name [facility] Work Phone: Clinical Notes 01-21-2022 to 07-17-2025 Telephone Encounter - Rex Diggs - 04/10/2025 10:01 AM EDTTelephone Encounter - Rex Diggs - 04/10/2025 10:01 AM EDTPatient Demetra Oneill MD - 04/06/2025 11:19 AM EDT Note Date & Type Note Facility 07-17-2025 Radiology Diagnostic study note [facility] Imaging Services [address] [place] [address] 07/17/251928 MR#: [id number] Acct: [id number] Name: REGAN VASQUEZ Rep #:[id number] : 1965 60 From: Brett Her MD PCP: Dr. Derrell Muñoz MD Status:REG CLI Y Location: CT CCTA w/Cont Coronary Arteries Date of Study:: 07/17/25 HTN Coronary Calcium Scoring: High-resolution Computed Tomographic imaging of the chest was performed on [07/17/25 ], with particular attention paid to the coronary arteries. Intravenous contrast agent was administered per protocol and images reconstructed and displayed. LEFT MAIN CORONARY ARTERY: Arises from the left coronary cusp with no calcification and bifurcates the left anterior descending artery and left circumflex artery [] LEFT ANTERIOR DESCENDING CORONARY ARTERY: Multiple areas of calcification in the proximal and mid segment with moderate stenosis noted in the proximal and mid segments. Distal mild disease is noted. [] LEFT CIRCUMFLEX CORONARY ARTERY: Nondominant vessel with soft plaque noted in the midsegment and hard plaque present in a high-grade stenosis noted. Mild diffuse distal disease is present [] RIGHT CORONARY ARTERY: Dominant right coronary artery with significant plaque noted in the proximal mid and distal segments. Moderate occlusive disease is noted in the proximal and mid segments. [] THORACIC AORTA: [] PULMONARY ARTERY: [] LEFT ATRIUM/APPENDAGE: [] MITRAL VALVE: [] AORTIC VALVE: [] LEFT VENTRICLE: [] CORONARY CALCIUM SCORE: 2044 [] Findings Coronary Artery Left Main (LM): 0 Left Anterior Descending (LAD): 922 Left Circumflex (LCX): 151 Right Coronary Artery (RCA): 972 Total Agatston Score: 2,045 Percentile Rankin Calcium Scoring Interpretation: Different methods to categorize the overall amount of coronary plaque. Overall amount CAC SIS Visual of coronary plaque P1 Mild -100 <2 1-2 vessels with mild amount of plaque P2 Moderate 101-300 3-4 1-2 vessels with moderate amount, 3 vessels with mild amount of plaque P3 Severe 301-999 5-7 3 vessels with moderate amount, 1 vessel with severe amount of plaque P4 Extensive >1000 >8 2-3 vessels with severe amount of plaque Calcium Score: Extensive: 2-3 vessels w/severe amount of plaque Conclusion: Significant three-vessel atherosclerosis with likely moderate obstruction noted in the LAD and right coronary artery and high-grade mid obstruction noted in the circumflex artery. 07/17/25 193 Date __ _ Brett Her MD Cosigner Signature (if applicable): Date ___ CC: Dr. Brett Her MD; Dr. Derrell Muñoz MD ~ Signed [facility] Work Phone: 07-17-2025 Radiology Diagnostic study note [facility] Imaging Services [address] [place], [place] [address] Limited Chest CT Cardiac Only MR#: [id number] Acct: [id number] Name: REGAN VASQUEZ Rep #: [id number] : 1965 M 60 From: Cali Reid MD PCP: Dr. Derrell Muñoz MD Status: REG CLI Study:Limited Chest CT Cardiac Only Date of E xam: 07/17/25 Exam# [id number] Ordering Dr: Fareed Muñoz MD PROCEDURE: LIMITED CHEST CT CARDIAC ONLY 07/17/2025 REASON FOR EXAM: UNSPECIFIED ATHEROSCLEROSIS TECHNIQUE: Procedure Code: CTCCTACHLIM Modality: CT Procedure: LIMITED CHEST CT CARDIAC ONLY One or more dose reduction techniques were used (e.g., Automated exposure control, adjustment of the mA and/or kV according to patient size, use of iterative reconstruction technique). RADIATION DOSE SUMMARY: DLP: 1606.79 mGycm COMPARISON: Chest x-ray 03/26/2022 CT/Limited Chest CT Cardiac Only IMPRESSION: Limited imaging of the lungs demonstrates no acute process. No pleural effusion or pneumothorax is seen in visualized areas. No adenopathy is noted. The visualized upper abdomen demonstrates no significant abnormality. Reading Location: [id number] CC: Dr. Derrell Muñoz MD ~ Counter Roller: Signed [facility] 07-06-2025 Radiology Diagnostic study note [facility] Imaging Services [address], [place] [address] Soft Tissue Neck WITH Contrast MR#: [id number] Acct: [id number] Name: REGAN VASQUEZ Rep #: [id number] : 1965 M 60 From: Yazan Pacheco MD PCP: Dr. Derrell Muñoz MD Status: REG CLI Study:Soft Tissue Neck WITH Contrast Date of Exam: 07/04/25 Exam# [id number] Ordering Dr: Fareed Muñoz MD PROCEDURE: SOFT TISSUE NECK WITH CONTRAST 07/04/2025 REASON FOR EXAM: RIGHT NECK PAIN, RIGHT NECK FULLNESS, VOICE CHANGES TECHNIQUE: Procedure Code: CTNEW Modality: CT Procedure: SOFT TISSUE NECK WITH CONTRAST CONTRAST: Isovue 370 VOLUME: 75 mL One or more dose reduction techniques were used (e.g., Automated exposure control, adjustment of the mA and/or kV according to patient size, use of iterative reconstruction technique). RADIATION DOSE SUMMARY: CTDlvol: 17.06 mGy DLP: 549.74 mGycm COMPARISON: CT cervical spine 10/26/2018. FINDINGS: Airway: The naso pharynx is unremarkable. Asymmetric prominence of the lateral left posterior wall of the oropharynx, similar to CT cervical spine 10/26/2018. The supraglottis, glottis and infraglottic are unremarkable. Limited evaluation due to streak artifact from dental work. Salivary glands: Unremarkable. Lymph nodes: No lymphadenopathy. Thyroid: Unremarkable. Vasculature: Atherosclerotic calcifications of the carotid bulbs. Orbits: Unremarkable. Paranasal sinuses and mastoids: Clear. Lung apices: Clear. Upper mediastinum: Unremarkable. Bones: No acute bony abnormalities. CT/Soft Tissue Neck WITH Contrast IMPRESSION: Asymmetric prominence of the posterolateral left oropharynx wall. This finding is similar to CT scan cervical spine 10/26/2018 and can be due to retropharyngeal left internal carotid artery. Direct visualization is recommended to rule out mucosal lesion. Otherwise, no lymphadenopathy or other acute neck abnormalities. Reading Location: [facility] CC: Dr. Derrell Muñoz MD ~ Counter Roller: Signed [facility] 04-27-2025 Radiology Diagnostic study note [facility] Imaging Services [address] [place] [address] [id number] Shoulder min 2 Views MR#: [id number] Acct: [id number] Name: REGAN VASQUEZ Rep #: [id number] : 1965 M 60 From: Veronique Noriega MD PCP: Dr. Derrell Muñoz MD Status: REG CLI Study:Shoulder min 2 Views Date of Exam: 04/27/25 Exam# [id number] Ordering Dr: Blane Gaspar MD EXAM: XR Right Shoulder Complete, 2 or More Views CLINICAL INDICATION: PAIN TECHNIQUE: Two or more views of the right shoulder. COMPARISON: No relevant prior studies available. FINDINGS: BONES/JOINTS: Mild degenerative changes of the acromioclavicular and glenohumeral joints. No acute fracture. No dislocation. SOFT TISSUES: Unremarkable. RAD/Shoulder min 2 Views IMPRESSION: Degenerative changes as above. Reading Location: [facility] CC: Dr. Derrell Muñoz MD; Dr. Blane Gaspar MD ~ Counter Roller: Signed [facility] 04-10-2025 Telephone encounter Note Type of record received: Office Visit Notes and Other Records received from: [facility] Records received via: Faxed Records scanned into [employer]: Yes Records have been forwarded to: Dr. Hill [facility] 04-10-2025 Miscellaneous Notes Type of record received: Office Visit Notes and Other Records received from: [facility] Records received via: Faxed Records scanned into [employer]: Yes Records have been forwarded to: Dr. Hill documented in this encounter [facility] 04-06-2025 Instructions Demetra Hill MD - 04/06/2025 11:37 AM EDT Lets continue the lamotrigine as is. I think the seizure was related to alcohol withdrawal. For any reductions in alcohol use, do so slowly by lowering by 1 shot / drink equivalent a week. I would recommend not driving for 2 months of being seizure free. documented in this encounter [facility] 04-06-2025 Note HNO ID: [id number] Author: DEMETRA HILL MD Service: ? Author Type: Physician Type: Progress Notes Filed: 04/06/2025 14:50 Note Text: FOLLOW UP NOTE Subjective Regan Vasquez is a 59 year old male who [...] HPI Current Issues - Had 8 seizures [id number]. 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 Motor: Muscle bulk is normal. Rapid alte (more content not included)... [facility] 04-06-2025 History of Presen t illness Narrative FOLLOW UP NOTE Subjective Regan Vasquez is a 59 year old male who [...] HPI Current Issues - Had 8 seizures [id number]-hff. 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 (-) Family history of epilepsy (+/-) [...] syph, CAITLYN, cryoglobulin, Hep panel) Assessment/Plan ASSESSMENT & PLAN: Regan Vasquez is a 60 year old ambidextrous male [...] Continue B1 supplement Follow-up: 6 months Risks & Side Effects of Newly Prescribed Medication, Discussed with Patient: n/a Demetra Hill MD [facility] Neurology documented in this encounter [facility] 2025 Radiology Diagnostic study note [facility] Imaging Services [address] [place] [address] Brain/Head without Contrast MR#: [id number] Acct: [id number] Name: REGAN VASQUEZ Rep #: [id number] : 1965 M 60 From: Elder Stauffer MD PCP: Dr. Derrell Muñoz MD Status: REG ER Study:Brain/Head without Contrast Date of Exa m: 03/29/25 Exam# [id number] Ordering Dr: Derrell Leon DO PROCEDURE: BRAIN/HEAD WITHOUT CONTRAST 2025 REASON FOR EXAM: SEIZURE TECHNIQUE: Head CT without intravenous contrast. Coronal and Sagittal reconstruction serieswere provided. One or more dose reduction techniques were used (e.g., Automated exposure control, adjustment of the mA and/or kV according to patient size, use of iterative reconstruction technique. RADIATION DOSE SUMMARY: CTDlvol: 44.99 mGy DLP: 812.98 mGycm COMPARISON: None FINDINGS: Brain: Within normal limits for age CSF Spaces: Mild generalized cerebral atrophy Sinuses/Mastoids: Clear at visualized levels Bones: CT/Brain/Head without Contrast IMPRESSION: NO ACUTE FINDINGS Reading Location: [place] [address] CC: Dr. Derrell Leon DO; Dr. Derrell Muñoz MD ~ Counter Roller: Signed [facility] 2025 Telephone encounter Note TW agrees that instruction to go to ER is best. SUELLEN Vergara, RN, BA [facility] Work Phone: 2025 Miscellaneous Notes TW agrees that instruction to go to ER is best. SUELLEN Vergara, RN, BA Pts Emelia called in to let us know the [...] he goes, I also sent him a [employer] message with this information, as well as his next neuro appointment information. documented in this encounter [facility] 2025 Telephone encounter Note Pts Emelia called in to let us know the [...] he goes, I also sent him a [employer] message with this information, as well as his next neuro appointment information. [facility] 02-12-2025 Note HNO ID: [id number] Author: DEMETRA HILL MD Service: ? 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 [facility] 01-07-2025 Evaluation note Diagnosis Onset Date Resolution URI (upper respiratory infection) acute January 07, 2025 10:28am [facility] Work Phone: 1(200) 353-435905-10-2024 Instructions* Patient Instructions* Demetra Hill MD - 02/25/2024 11:45 AM EDT 1. Continue lamotrigine 2. You need to slowly lower alcohol use which can negatively affect balance and memory 3. Continue B1 supplement 4. Stop B6 supplement 5. ALA is fine, as is acupuncture [facility] History of Present illness Narrative* Demetra Hill MD - 02/25/2024 11:09 AM EDT FOLLOW UP NOTE Subjective Regan Vasquez is a 58 year old male who presents for follow [...] decrease etoh. 08/2023 no sz with med c ompliance, decrease etoh, see epilepsy if further seizures. HPI Current Issues 1. Seizures: - No seizures - No problems taking medication - Still drinking the same same last visit - 12 on weekends, none on sun / mon, couple drinks other weekdays. notes sometimes trying some nonalcoholic beers. Taking B1 vitamin. - Has some mild balance symptoms Onset: ~30s Semiology: See above Frequency: Every couple weeks Triggers: n/a Current AEDs: LTG Adverse effects: n/a Prior AEDs: LEV (unknown outcome), OXC 600 mg ER daily, possibly others not completely sure Prior neurologists: Dr. Ross, Dr. Min, [facility] Dr. 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 Sensory symptoms - Continues to be present - Taking ALA - Has been doing acupuncture - Symptoms more prominent when angry or stressed Current Outpatient Medications Medication Sig Dispense Refill lamoTRIgine (LAMICTAL) 200 mg tablet Take 1 tablet by mouth twice daily. Take with 25 mg pill for 225 mg twice a day 60 tablet 11 lamoTRIgine (LAMICTAL) 25 mg tablet Take 1 tablet by mouth twice daily. Take with 200 mg pill for total of 225 mg twice a day. 60 tablet 11 pravastatin (PRAVACHOL) 80 mg tablet finasteride (PROSCAR) [...] was completed and was negative. Objective OBJECTIVE 02/25/24 1116 BP: 138/82 BP Site: Right Arm BP Position: Sitting BP Cuff Size: Large Adult Pulse: 78 Weight: 107.3 kg (236 lb 8.9 oz) Height: 185.4 cm (6' 1) General: [...] symmetric. Hearing is intact to conversation. There isno hypomimia. There is no hypophonia. There is no dysarthria. Tongue is midline. Palate elevates sym metrically. Shoulder shrug is normal. Motor: Muscle bulk is normal. Rapid alternating movements are normal. Muscle power is full. Coordination: Finger to nose is smooth without ataxia. Gait/station: Minimally wider base DATA REVIEW Actual films/image/tracing reviewed and summarized [...] syph, CAITLYN, cryoglobulin, Hep panel) Assessment/Plan ASSESSMENT & PLAN: Regan Vasquez is a 58 year old ambidextrous male with a history of previously diagnosed neuropathy, alcohol abuse, and epilepsy who presents for follow up of seizures and pain / paresthesias. His examination is normal. 1. Epilepsy - Seizure free on lamotrigine - Encouraged etoh cessation 2. Pain / paresthesias - Explained more of a fibromyalgia pattern since whole body and intermittent with normal EMG and exam - Encouraged alcohol cessation as could cause nerve damage - Stop B6 - ALA is fine - Don't see utility in skin biopsy for SFN 3. Alcohol abuse - Encouraged gradual cessation as can cause nerve damage, imbalance, and memory impairment - Continue B1 100 mg daily Follow-up: 6 months Risks & Side Effects of Newly Prescribed Medication, Discussed with Patient: n/a Demetra Hill MD [facility] Neurology documented in this encounter[facility] Procedure [facility]07-12-2023 Miscellaneous Notes* Telephone Encounter - Emelia Xiao - 04/28/2023 2:04 PM EDT Patient called and said that he really does not want to do the Epilepsy clinic due to his job and is wondering if passing on it would be an okay thing to do. Please advise documented in [facility] encounterM[facility]-07-2023 Miscellaneous Notes* Telephone Encounter - Demetra Hill MD - 04/23/2023 2:18 PM EDT I sent in refills. At last visit I had referred him to epilepsy Yoselin or Ned, can you remind him / help him make an appointment? Thanks * Telephone Encounter - Mary Ny - 04/23/2023 9:45 AM EDT DEVONTE 03.03.23 NOV 08.27.23 Patient has been identified by name and date of : Yes Last office visit in this department: 03/03/2023 RX INSTRUCTIONS: Patient aware RX will be sent to pharmacy. No need to notify patient. Patient phones requesting refills as follows: Requested Prescriptions Pending Prescriptions Disp Refills lamoTRIgine (LAMICTAL) 200 mg tablet 60 tablet 2 Sig: Take 1 tablet by mouth twice daily. Take with 25 mg pill for 225 mg twice a day lamoTRIgine (LAMICTAL) 25 mg tablet 60 tablet 2 Sig: Take 1 tablet by mouth twice daily. Take with 200 mg pill for total of 225 mg twice a day. Please review and advise. Mary Ny documented [facility]04-07-2023 Miscellaneous Notes* Telephone Encounter - Deb Saleh - 01/22/2023 9:41 AM EDT Left message for patient that we have 4 cancellation slots open today if interested to let us know abdiel by phone call or schedule it on [facility] for a quicker process. [facility] Miscellaneous Notes* Telephone Encounter - Demetra Hill MD - 01/13/2023 2:48 PM EDT Lets just keep it as scheduled but I'll look out for cancellations which will inevitably occur. 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 The soonest opportunity would be 02/03 if we override a 9:30 hospital slot. Or 02/17 on an afternoon new patient slot. Please advise. (They prefer a Weds) * Telephone Encounter - Demetra Hill MD - 01/12/2023 3:37 PM EDT Can you try to move up his appointment with me? We've never talked much about his epilepsy and he'salready on a pretty high dose. * Telephone Encounter - Deb Saleh - 01/12/2023 3:11 PM EDT NOV: 03/03/23 (1 year f/u) * Telephone Encounter - Shannan Martita - 01/12/2023 2:55 PM EDT Patients called in stating that patient is having seizure even while on Lamotrigene. States there have been times in the past where he got used to the medication and so the dose neededincreased. Please contact to discuss. Patients wifes number is [phone] documented in this encounterM[facility]04-06-2022 Instructions* Patient Instructions* Demetra Hill MD - 01/21/2022 11:24 AM EDT Change the lamotrigine to a 200 mg pill and a 25 mg pill, taking 1 each twice a day for total of 225 mg twice a day. documented in this encounterM[facility]04-06-2022 History of Present illness Narrative* Demetra Hill MD - 01/21/2022 11:08 AM EDT FOLLOW UP NOTE Subjective Regan Vasquez is a 56 year old male who presents for follow up. CC: Tingling, pain Summary of prior care: Ambidextrous male with a history of previously diagnosed neuropathy, alcoholabuse, and epilepsy who presents for evaluation of [...] be related to alcohol abuse, suggested slowly decreasinghis alcohol use. Suggested B1 supplementation with alcohol abuse. His LTG dose is a little unusual,200 AM 275 PM, suggested changing to 225 mg BID for ease and consistency. HPI Current Issues 1. Sensory symptoms - Unchanged from last visit - Feels better with exercise but only exercises 1-2 times a week. Tough to have energy to work out after working all day - Doesn't usually drink Sun/Mon, more on //Wed. - Still feels great when drinking. Also tried a friends medical marijuana and had no pain, didn't feel high with it. - Had 2 mixed drinks and 2 beers last night - He worries that if he quits drinking the way he has for the past 30 years nothing will change - Taking bB1 - Feels like symptoms would be worse after a seizure, which would only occur if he misses medication doses Current Outpatient Medications Medication Sig Dispense Refill losartan-hydroCHLOROthiazide (HYZAAR) 50-12.5 mg per tablet Take 1 tablet by mouth once daily. DULoxetine (CYMBALTA) 60 mg capsule duloxetine 60 mg capsule,delayed release TAKE 1 CAPSULE BY MOUTH EVERY DAY aspirin, enteric coated (ASPIRIN, ENTERIC COATED) 81 mg EC tablet Take 81 mg by mouth once daily. Takes about 2-3 times per week. lamoTRIgine (LAMICTAL) 150 mg tablet Take 1.5 tablets by mouth twice daily. 90 tablet 5 ezetimibe (ZETIA) 10 mg tablet Take 10 mg by mouth once daily. simvastatin (ZOCOR) 40 mg tablet Take 40 mg by mouth once daily. tamsulosin ER (FLOMAX) 0.4 mg cp24 Take 0.4 mg by mouth once daily. OXcarbazepine ER (OXTELLAR XR) 600 mg Tb24 Take 600 mg by mouth once daily. (Patient not taking: Reported on 11/05/2021 ) busPIRone (BUSPAR) 15 mg tablet Take 15 mg by mouth three times daily. (Patient not taking: Reported on 11/05/2021 ) MULTIVIT-MINERALS/FERROUS FUM (MULTI VITAMIN ORAL) Take by mouth once daily. (Patient not taking: Reported on 11/05/2021 ) BEE POLLEN ORAL Take by mouth once daily. (Patient not taking: Reported on 11/05/2021 ) VITAMIN B COMPLEX ORAL Take by mouth once daily. (Patient not taking: Reported on 11/05/2021 ) COMPOUNDED PRESCRIPTION Tumeric, daily. (Patient not taking: Reported on 11/05/2021 ) ALPHA LIPOIC ACID ORAL Take by mouth once daily. (Patient not taking: Reported on 11/05/2021 ) No current facility-administered medications for this visit. REVIEW OF SYSTEMS His ROS was positive for that mentioned in the HPI. Otherwise a 10-point ROS was completed and was negative. Objective OBJECTIVE 01/21/22 1052 BP: 129/80 Pulse: 92 Weight: 109.2 kg (240 lb 12.8 oz) Height: 185.4 cm (6' 1) General: [...] symmetric. Hearing is intact to conversation. There isno hypomimia. There is no hypophonia. There is no dysarthria. Tongue is midline. Palate elevates sym metrically. Shoulder shrug is normal. Motor: Muscle bulk is normal. Rapid alternating movements are normal. Muscle power is full. Sensory: Intact to fine touch and vibration. Reflex: 2+ and symmetric. Coordination: Finger to nose is smooth without ataxia. Gait/station: Normal DATA REVIEW Actual films/image/tracing reviewed and summarized as follows: n/a Old records reviewed and summarized as follows: EMG/NCS 11/17/21 normal, decreased activation Reviewed previous [...] syph, CAITLYN, cryoglobulin, Hep panel) Assessment/Plan ASSESSMENT & PLAN: Regan Vasquez is a 56 year old ambidextrous male with a history of previously diagnosed neuropathy, alcohol abuse, and epilepsy who presents for evaluation of neuropathy. His examination is normal. 1. Paraesthesias - EMG/NCS normal, no signs of neuropathy - Normal reflexes and sensory exam not typical of neuropathy - Presence of symptoms that are diffuse and intermittent wouldn't be typical of neuropathy either - Don't have a great explanation for his symptoms - On duloxetine which might help - Previously had been prescribed gabapentin but never took, wouldn't suggest using now with alcoholconsumption - Suggested he decreased alcohol consumption, though I can't say for sure this will help his symptoms with no signs of neuropathy 2. Non-intractable epilepsy - Difficulty cutting lamotrigine, will change to a 200 + 25 mg pill BID Follow-up: 1 year Risks & Side Effects of Newly Prescribed Medication, Discussed with Patient: n/a Demetra Hill MD [facility] Neurology [facility] noteNo assessment information availableWProMedica Memorial Hospital Work Phone: Evaluation note* Diagnosis Paresthesia- Primary Disturbance of skin sensation Nonintractable epilepsy without status epilepticus, unspecified epilepsy type (HCC) documented [facility]* Diagnosis Nonintractable epilepsy without status epilepticus, unspecified epilepsy type (HCC) documented in this encounter [facility] note* Diagnosis Nonintractable epilepsy without status epilepticus, unspecified epilepsy type (HCC)- Primary Alcohol abuse Alcohol abuse, unspecified Paresthesia Disturbance of skin sensation documented in this encounter [facility]* Diagnosis Nonintractable epilepsy without status epilepticus, unspecified epilepsy type (HCC)- Primary Alcohol abuse Alcohol abuse, unspecified Alcohol withdrawal seizure without complication (HCC) documented in this encounter [facility] for referral (narrative)No reason for referral information availableWProMedica Memorial Hospital Work Phone: Summary Purpose Family History No Family History Records Found Relationship Condition Age at Onset Recorded Date/T jorge l Not Specified Cardiac disease Unknown father Coronary artery disease Unknown Advance Directives No Advanced Directives Records Found Advance Directive Response Recorded Date/ Time Living Will Yes May 14, 2021 11:18am Power of Bisque Finisher Yes May 14 11:18am Advance Directive Response Recorded Date/ Time Living Will Yes May 14, 2021 10:18am Power of Bisque Finisher Yes May 14 10:18am Advance Directive Response Recorded Date/ Time Do you have a Healthcare Power of Bisque Finisher? Yes 2025 2:39pm Name of Medical Power of Bisque Finisher EMELIA 2025 2:39pm Chief Complaint and Reason for Visit Chief Complaint COUGH Chief Complaint DYSPNEA Chief Complaint DYSPNEA DYSPNEA DYSPNEA EORDER Chief Complaint Admit Date HEAD AND CHEST COLD, COUGH, BODY ACHES M arch 2024 10:28am SEIZURES 2025 2:23 pm Reason for Visit Admit Date URI (upper respiratory infection) January 07, 2025 10:28am Chief Complaint Admit Date HEAD AND CHEST COLD, COUGH, BODY ACHES M arch 2024 10:28am SEIZURES 2025 2:23 pm pain- EORDERS April 27, 2025 8:56 am Chief Complaint Admit Date SEIZURES 2025 2:23 pm pain- EORDERS April 27, 2025 8:56 am Chief Complaint Admit Date SEIZURES 2025 2:23 pm pain- EORDERS April 27, 2025 8:56 am RIGHT NECK PAIN, NICOTINE DEPENDENCE Sep ber 2024 2:40pm HTN SMOKING, MALE, >55, POSITIVE FHX-RIS K>10% July 17, 2025 12:53pm HTN SMOKING, MALE, >55, POSITIVE FHX-RIS K>10% July 17, 2025 7:29pm Chief Complaint Admit Date pain- EORDERS April 27, 2025 8:56 am RIGHT NECK PAIN, NICOTINE DEPENDENCE Sep [facility] 2024 2:40pm HTN SMOKING, MALE, >55, POSITIVE FHX-RIS K>10% July 17, 2025 12:53pm HTN SMOKING, MALE, >55, POSITIVE FHX-RIS K>10% July 17, 2025 7:29pm [facility] DROP OFF July 25, 2025 7: 41am Additional Source Comments (unrecognized sect ion and content) No Status Records FoundNo Status Records FoundNo Status Records Found INFORMATION SOURCE (unrecogn ized section and content) DATE CREATED AUTHOR 05/11/2018 [facility] DATE CREATED AUTHOR 'S ORGANIZ ATION 04/20/2025 [facility] DATE CREATED AUTHOR AUTHOR'S MANE ATGIANFRANCO 08/17/2025 [facility] Goals (unrecognized section and content) Goals may be documented in a n alternate sectionGoals may be documented in an alternate sectionGoals may be documented in an alternate sectionGoals may be documented in an alternate sectionGoals may be documented in an alternate sectionGoals may be documented in an alternate sectionGoals may be documented in an alternate sectionGoals may be documented in an alternate sectionGoals may be documented in an alternate sectionGoals may be documented in an alternate sectionGoals may be documented in an alternate sectionGoals may be documented in an alternate sectionGoals may be documented in an alternate sectionGoals may be documented in an alternate section Source Comments (unrecognize d section and content) In the event this informatio n is protected by the Federal Confidentiality of Alcohol and Drug Abuse Patient Records regulations: The Federal rules restrict any use of the information to criminally investigate or prosecute any alcohol or drug abuse patient.[facility] ClinicIn the event this information is protected by the Federal Confidentiality of Alcohol and Drug Abuse Patient Records regulations: The Federal rules restrict any use of the information to criminally investigate or prosecute any alcohol or drug abuse patient.[facility] ClinicIn the event this information is protected by the Federal Confidentiality of Alcohol and Drug Abuse Patient Records regulations: The Federal rules restrict any use of the information to criminally investigate or prosecute any alcohol or drug abuse patient.[facility] ClinicIn the event this information is protected by the Federal Confidentiality of Alcohol and Drug Abuse Patient Records regulations: The Federal rules restrict any use of the information to criminally investigate or prosecute any alcohol or drug abuse patient.[facility] ClinicIn the event this information is protected by the Federal Confidentiality of Alcohol and Drug Abuse Patient Records regulations: The Federal rules restrict any use of the information to criminally investigate or prosecute any alcohol or drug abuse patient.[facility] ClinicIn the event this information is protected by the Federal Confidentiality of Alcohol and Drug Abuse Patient Records regulations: The Federal rules restrict any use of the information to criminally investigate or prosecute any alcohol or drug abuse patient.[facility] ClinicIn the event this information is protected by the Federal Confidentiality of Alcohol and Drug Abuse Patient Records regulations: The Federal rules restrict any use of the information to criminally investigate or prosecute any alcohol or drug abuse patient.[facility] ClinicIn the event this information is protected by the Federal Confidentiality of Alcohol and Drug Abuse Patient Records regulations: The Federal rules restrict any use of the information to criminally investigate or prosecute any alcohol or drug abuse patient.[facility] ClinicIn the event this information is protected by the Federal Confidentiality of Alcohol and Drug Abuse Patient Records regulations: The Federal rules restrict any use of the information to criminally investigate or prosecute any alcohol or drug abuse patient.[facility] Reason for Visit (unrecogniz ed section and content) Reason Comments Follow-up idiopathic progressive neuropa thy Reason Comments Medication Problem Reason Comments Appointment Call to Patient Reason Comments Refill Request Reason Comments Patient Question Reason Comments 6 month follow up Reason Comments Recent Seizures Reason Comments Received Outside Medical Records Care Teams (unrecognized sec tion and content) Plate Take Out Worker Relationship Specialty Start Date End Date Derrell Muñoz MD [address] [place] [id number] PCP - General Family Practice 11/05/21 Team Status: Active Member Role Status Dates Dr. Derrell Muñoz MD Family Provider Active Dr. Derrell Muñoz MD Primary Care Provider Active Team Status: Inactive Member Role Status Dates Dr. Derrell Muñoz MD Primary Care Provider Active Fabby Hammer , DIRECTOR OF AGRICULTURE-C Attending Provider, Referrin g Provider Active Team Status: Inactive Member Role Status Dates Dr. Derrell Muñoz MD Primary Care Provider, Attending P azar Active Plate Take Out Worker Relationship Specialty Start Date End Date Derrell Muñoz MD [address] [facility], [place] [address] PCP - General Family Medicine 11/05/21 Plate Take Out Worker Relationship Specialty Start Date End Date Derrell Muñoz MD [address] [facility], [place] [id number] PCP - General Family Medicine 11/05/21 Plate Take Out Worker Relationship Specialty Start Date End Date Derrell Muñoz MD [address] [facility], [place] [id number] PCP - General Family Medicine 11/05/21 Plate Take Out Worker Relationship Specialty Start Date End Date Derrell Muñoz MD [address] [facility], [place] [id number] PCP - General Family Medicine 11/05/21 Team Status: Inactive Member Role Status Dates Dr. Derrell Muñoz MD Primary Care Provide r, Attending Provider, Referring Provider Active Team Status: Active Member Role Status Dates Dr. Derrell Muñoz MD Primary Care Provider Active Dr. Brett Her MD Attending Provider Active Team Status: Active Member Role Status Dates Dr. Derrell Muñoz MD Primary Care Provider, Referring P azar Active Dr. Brett Her MD Attending Provider Active Team Status: Active Member Role Status Dates Dr. Derrell Muñoz MD Primary Care Provide r, Referring Provider, Other Provider Active Dr. Jalil Hope DO Attending Provider Active Team Status: Active Member Role Status Dates Dr. Derrell Muñoz MD Primary Care Provide r, Attending Provider, Referring Provider Active Plate Take Out Worker Relationship Specialty Start Date End Date Derrell Muñoz MD [address] [facility], [place] [id number] PCP - General Family Medicine 11/05/21 Team Status: Active Member Role Status Dates Dr. Derrell Muñoz MD Primary Care Provider Active Team Status: Inactive Member Role Status Dates Dr. Derrell Muñoz MD Primary Care Provider Active Start: January 07, 2025 End: January 07, 2025 Dr. Derrell Muñoz MD Referring Provider Active St art: January 07, 2025 End: January 07, 2025 Blane Sandhu DIRECTOR OF AGRICULTURE, DIRECTOR OF AGRICULTURE-C Attending Provider Active S tart: January 07, 2025 End: January 07, 2025 Team Status: Inactive Member Role Status Dates Dr. Derrell Muñoz MD Primary Care Provider Active Start: 2025 End: 2025 Dr. Derrell Leon DO Referring Provider Active Start: 2025 End: 2025 Dr. Derrell Leon DO Emergency Provider Active Start: 2025 End: 2025 Plate Take Out Worker Relationship Specialty Start Date End Date Derrell Muñoz MD [address] [place] [address] PCP [facility] 11/05/21 Plate Take Out Worker Relationship Specialty Start Date End Date Derrell Muñoz MD [address] [place] [address] PCP - [facility] 11/05/21 Team Status: Active Member Role/Relationship Status Dates Dr. Derrell Muñoz MD Primary Care Provider Active Team Status: Inactive Member Role/Relationship Status Dates Dr. Derrell Muñoz MD Primary Care Provider Active Start: January 07, 2025 End: January 07, 2025 Dr. Derrell Muñoz MD Referring Provider Active St art: January 07, 2025 End: January 07, 2025 Blane Sandhu DIRECTOR OF AGRICULTURE, DIRECTOR OF AGRICULTURE-C Attending Provider Active S tart: January 07, 2025 End: January 07, 2025 Team Status: Inactive Member Role/Relationship Status Dates Dr. Derrell Muñoz MD Primary Care Provider Active Start: 2025 End: 2025 Dr. Derrell Leon DO Attending Provider Active Start: 2025 End: 2025 Dr. Derrell Leon DO Referring Provider Active Start: 2025 End: 2025 Dr. Derrell Leon DO Emergency Provider Active Start: 2025 End: 2025 Team Status: Inactive Member Role/Relationship Status Dates Dr. Derrell Muñoz MD Primary Care Provider Active Start: April 27, 2025 End: April 27, 2025 Dr. Blane Gaspar MD Attending Provider Active Start: April 27, 2025 End: April 27, 2025 Dr. Blane Gaspar MD Referring Provider Active Start: April 27, 2025 End: April 27, 2025 Team Status: Inactive Member Role/Relationship Status Dates Dr. Derrell Muñoz MD Primary Care Provider Active Start: 2025 End: 2025 Dr. Derrell Leon DO Attending Provider Active Start: 2025 End: 2025 Dr. Derrell Leon DO Referring Provider Active Start: 2025 End: 2025 Dr. Derrell Leon DO Emergency Provider Active Start: 2025 End: 2025 Team Status: Inactive Member Role/Relationship Status Dates Dr. Derrell Muñoz MD Primary Care Provider Active Start: April 27, 2025 End: April 27, 2025 Dr. Blane Gaspar MD Attending Provider Active Start: April 27, 2025 End: April 27, 2025 Dr. Blane Gaspar MD Referring Provider Active Start: April 27, 2025 End: April 27, 2025 Team Status: Inactive Member Role/Relationship Status Dates Dr. Derrell Muñoz MD Primary Care Provider Active Start: May 18, 2025 End: May 18, 2025 Dr. Derrell Muñoz MD Attending Provider Active St art: May 18, 2025 End: May 18, 2025 Team Status: Active Member Role/Relationship Status Dates Dr. Derrell Muñoz MD Primary care physician Active Team Status: Inactive Member Role/Relationship Status Dates Dr. Derrell Muñoz MD Primary care physician Active Start: 2025 End: 2025 Dr. Derrell Leon DO Attending physician Active Start: 2025 End: 2025 Dr. Derrell Leon DO Referring Provider Active Start: 2025 End: 2025 Dr. Derrell Leon DO Emergency Department Physician Active Start: 2025 End: 2025 Team Status: Inactive Member Role/Relationship Status Dates Dr. Derrell Muñoz MD Primary care physician Active Start: April 27, 2025 End: April 27, 2025 Dr. Blane Gaspar MD Attending physician Active Start: April 27, 2025 End: April 27, 2025 Dr. Blane Gaspar MD Referring Provider Active Start: April 27, 2025 End: April 27, 2025 Team Status: Inactive Member Role/Relationship Status Dates Dr. Derrell Muñoz MD Primary care physician Active Start: May 18, 2025 End: May 18, 2025 Dr. Derrell Muñoz MD Attending physician Active S tart: May 18, 2025 End: May 18, 2025 Team Status: Inactive Member Role/Relationship Status Dates Dr. Derrell Muñoz MD Primary care physician Active Start: July 04, 2025 End: July 04, 2025 Dr. Derrell Muñoz MD Attending physician Active S tart: July 04, 2025 End: July 04, 2025 Dr. Derrell Muñoz MD Referring Provider Active St art: July 04, 2025 End: July 04, 2025 Team Status: Active Member Role/Relationship Status Dates Dr. Derrell Muñoz MD Primary care physician Active Start: July 17, 2025 Dr. Derrell Muñoz MD Attending physician Active S tart: July 17, 2025 Dr. Derrell Muñoz MD Referring Provider Active St art: July 17, 2025 Team Status: Active Member Role/Relationship Status Dates Dr. Derrell Muñoz MD Primary care physician Active Start: July 17, 2025 Dr. Derrell Muñoz MD Referring Provider Active St art: July 17, 2025 Dr. Derrell Muñoz MD Nurse Practitioner Active St art: July 17, 2025 Dr. Brett Her MD Attending physician Active Start: July 17, 2025 Team Status: Inactive Member Role/Relationship Status Dates Dr. Derrell Muñoz MD Primary care physician Active Start: April 27, 2025 End: April 27, 2025 Dr. Blane Gaspar MD Attending physician Active Start: April 27, 2025 End: April 27, 2025 Dr. Blane Gaspar MD Referring Provider Active Start: April 27, 2025 End: April 27, 2025 Team Status: Inactive Member Role/Relationship Status Dates Dr. Derrell Muñoz MD Primary care physician Active Start: May 18, 2025 End: May 18, 2025 Dr. Derrell Muñoz MD Attending physician Active S tart: May 18, 2025 End: May 18, 2025 Team Status: Inactive Member Role/Relationship Status Dates Dr. Derrell Muñoz MD Primary care physician Active Start: July 04, 2025 End: July 04, 2025 Dr. Derrell Muñoz MD Attending physician Active S tart: July 04, 2025 End: July 04, 2025 Dr. Derrell Muñoz MD Referring Provider Active St art: July 04, 2025 End: July 04, 2025 Team Status: Inactive Member Role/Relationship Status Dates Dr. Derrell Muñoz MD Primary care physician Active Start: July 17, 2025 End: July 17, 2025 Dr. Derrell Muñoz MD Attending physician Active S tart: July 17, 2025 End: July 17, 2025 Dr. Derrell Muñoz MD Referring Provider Active St art: July 17, 2025 End: July 17, 2025 Team Status: Active Member Role/Relationship Status Dates Dr. Derrell Muñoz MD Primary care physician Active Start: July 17, 2025 Dr. Derrell Muñoz MD Referring Provider Active St art: July 17, 2025 Dr. Derrell Muñoz MD Nurse Practitioner Active St art: July 17, 2025 Dr. Brett Her MD Attending physician Active Start: July 17, 2025 Team Status: Active Member Role/Relationship Status Dates Dr. Derrell Muñoz MD Primary care physician Active Start: July 23, 2025 Dr. Derrell Muñoz MD Attending physician Active S tart: July 23, 2025 Team Status: Active Member Role/Relationship Status Dates Dr. Derrell Muñoz MD Primary care physician Active Start: July 25, 2025 Dr. Derrell Muñoz MD Attending physician Active S tart: July 25, 2025 Dr. Derrell Muñoz MD Referring Provider Active St art: July 25, 2025 FOR RECORDS PERTAINING TO PATIENTS WHO ARE OR HAVE BEEN ENROLLED IN A CHEMICAL DEPENDENCY/SUBSTANCEABUSE PROGRAM, SOME INFORMATION MAY BE OMITTED. This clinical summary was aggregated from multiple sources. Caution should be exercised in using it in the provision of clinical care. This summary normalizes information from multiple sources, and as a consequence, information in this document may materially change the coding, format and clinical context of patient data. In addition, data may be omitted in some cases. CLINICAL DECISIONS SHOULD BE BASED ON THE PRIMARY CLINICAL RECORDS. [email or web address]. provides no warranty or guarantee of the accuracy or completeness of information in this document.
--- NOTE | 2025-09-25 08:44 | CL.D_ITS ---
Patient Name: REGAN DIAZ Study Date: 09/25/2025 Performing: Brett Her MD Ht: 74 inches 187.96 cm : 1965 Wt: 223.99 lbs 101.6 kg Age: 60 Gender: male BSA: 2.28 PROCEDURE(S) PERFORMED DC01-(98728)LHC/COR/LV CLINICAL PROFILE AND INDICATIONS Indications: Suspected CAD Heart Failure: None Stress/Imaging Stress/Image Study Performed: No CAD Presentations: No Sxs, no angina. CONCLUSIONS Moderate three-vessel coronary calcification with moderate disease noted in the mid left anterior descending artery and mild disease noted in the right coronary artery and preserved ejection fraction. RECOMMENDATIONS Aggressive risk factor modification. Keep LDL under 70 and HDL over 40 if possible. DESCRIPTION OF PROCEDURE The patient arrived to the procedure lab. The risks and benefits of the procedure as well as a full description of our services here and current unavailability of surgical backup were fully explained to the patient and/or their significant other prior to the catheterization. The Timeout was completed, verifying the correct patient and procedure. The patient's procedural site was prepped and draped in the usual fashion. Local anesthetic was given subcutaneously to right radial region with Lidocaine 2%. Using a modified Seldinger technique, arterial access was obtained via the right radial artery, a 6Fr sheath was inserted. Right Coronary Artery selective angiography was then performed in multiple views using a 5 Fr. 4.0 [place] catheter. Left Coronary Artery selective angiography was performed in multiple views using a 5 Fr. 4.0 [place] catheter. Left Ventriculography was performed in CORRAL projection using a 5 Fr. [place] catheter. LV to AO pullback pressures were then recorded.The arterial sheath was pulled and a TR Band was applied for hemostasis CORONARY ANGIOGRAPHY DOMINANCE: Right Dominant LEFT HEART ASSESSMENT Left Ventricular Ejection Fraction: by LV Gram 65 % Normal LV wall motion Normal Left Ventricular systolic function LEFT MAIN: Angiographically normal LEFT ANTERIOR DESCENDING ARTERY: Moderate calcification, Medium size vessel with moderate calcification in the proximal and midportion with no high-grade stenosis. The mid segment has a smooth 60 to 70% stenosis and the distal portion has luminal irregularities and tapers into a small vessel. CIRCUMFLEX ARTERY: Mild calcification, Mild luminal irregularities RIGHT CORONARY ARTERY: Moderate calcification Dominant vessel with proximal 40% stenosis the vessel continues with mild luminal irregularities. And terminates to posterior descending artery and posterolateral vessel with no high-grade stenosis. COMPLICATIONS No Complications PROCEDURE MEDICATIONS Versed 1 mg IV Fentanyl 50 mcg IV Versed 1 mg IV Oxygen: 2 L/min via nasal cannula Heparin given IA 09/25/2025 08:24:30 Verapamil 2.5mg, Ntg 100mcgs, 3000 units of Heparin given IA 09/25/2025 08:24:30 SUMMARY OF HEMODYNAMIC DATA Time AIR REST ECG 07:50:28 AO 100/60 (80) SA 08:26:26 AO 118/69 (91) 08:27:13 LV 121/4, 9 08:34:17 LV 124/4, 9 08:34:28 LV 115/5, 13 08:34:58 LVp 120/5, 13 08:35:04 AOp 0/-26 (49) 08:35:11 Signed By Brett Her MD On 09/25/2025 08:43:51 Brett Her MD
--- NOTE | 2025-09-25 09:15 | ECHOD_ITS ---
Reason For Study Reason For Study: CAD/ASHD Procedure This was a 2D Doppler, Color Flow transthoracic echocardiogram. Exam performed portable in patient room. Left Ventricle Normal LV size. Left ventricular systolic function is normal. The left ventricular ejection fraction is 65 %. No regional wall motion abnormalities noted. Right Ventricle Normal RV size. Normal systolic function. Atria Normal left atrium. Normal right atrium. Mitral Valve Normal mitral valve. Tricuspid Valve Normal tricuspid valve. Mild (1+) tricuspid valve insufficiency. Pulmonary artery systolic pressure is 24 mmHg. Aortic Valve Trisinus/trileaflet aortic valve. Normal aortic valve. Pulmonic Valve Normal pulmonic valve. Great Vessels Normal aortic root. The pulmonary artery is normal size. Inferior vena cava collapse with respiration. Pericardium/Pleural No pericardial effusion. MMode/2D Measurements & Calculations LVIDd: 5.2 cm IVSd: 1.0 cm Ao root diam: 3.4 cm LVIDs: 3.4 cm LVPWd: 1.0 cm RVDd: 3.9 cm FS: 35.2 % LAV(MOD-bp): 52.5 ml LVAd ap4: 34.0 cm2 SV(MOD-sp4): 68.9 ml LAV(MOD-bp) Indexed: 23.0 ml/m2 LVLd ap4: 9.0 cm SI(MOD-sp4): 30.1 ml/m2 LAV(MOD-sp2): 48.9 ml EDV(MOD-sp4): 105.7 ml LAV(MOD-sp4): 45.0 ml EDV(sp4-el): 108.9 ml LVAs ap4: 17.9 cm2 LVLs ap4: 7.5 cm ESV(MOD-sp4): 36.8 ml ESV(sp4-el): 36.2 ml EF(MOD-sp4): 65.2 % EF(sp4-el): 66.7 % SV(sp4-el): 72.7 ml LA A4 area: 18.2 cm2 LA dimension(2D): 4.1 cm RA A4 area: 16.4 cm2 TAPSE: 2.4 cm Time Measurements MV dec time: 0.20 sec Doppler Measurements & Calculations MV E max guy: 64.6 cm/sec Lat Peak E' Guy: 10.3 cm/sec Med Peak E' Guy: 7.0 cm/sec MV A max guy: 50.1 cm/sec E/E' lat: 6.3 E/E' med: 9.3 MV E/A: 1.3 Ao V2 max: 139.5 cm/sec LV V1 max: 94.1 cm/sec MV dec slope: 326.1 cm/sec2 Ao max P.8 mmHg LV V1 max P.5 mmHg Ao V2 mean: 92.1 cm/sec LV V1 mean P.8 mmHg Ao mean P.0 mmHg LV V1 mean: 62.1 cm/sec Ao V2 VTI: 34.5 cm LV V1 VTI: 22.8 cm AV (velocity ratio): 0.66 PA V2 max: 91.9 cm/sec PI end-d guy: 89.6 cm/sec TR max guy: 232.9 cm/sec TR max P.7 mmHg ECHO/Echo Complete Interpretation Summary Normal LV size. Left ventricular systolic function is normal. The left ventricular ejection fraction is 65 %. Structurally normal valves. Ordering Physician: Brett Her Referring Physician: Reyes Muñoz Performed By: Yareli Sandhu, LILLIAN, RVT
== END 2025-09-25 10:10 | disposition home or self-care (01) ==
PROVIDERS: PCP Family Medicine; Referring Provider Internal Medicine Cardiovascular Disease; Visit Provider Internal Medicine Cardiovascular Disease
DX: I25.10 Atherosclerotic heart disease of native coronary artery without angina pectoris (principal); I10 Essential (primary) hypertension; E78.5 Hyperlipidemia, unspecified; Z79.899 Other long term (current) drug therapy; Z79.82 Long term (current) use of aspirin; K21.9 Gastro-esophageal reflux disease without esophagitis; F17.210 Nicotine dependence, cigarettes, uncomplicated; R93.1 Abnormal findings on diagnostic imaging of heart and coronary circulation
CPT/HCPCS: 93306; 93458; 99152; Q9967; C1769; C1894